=== PATIENT | female | born 1950 | race Caucasian/White ===

== ENCOUNTER 2019-11-04 15:41 | Emergency (ER) | payer MEDICARE, MEDICAID, SELFPAY ==
[2019-11-04 15:43] VITALS: BP 178/57; PULSE 61; RESP 19; TEMP 36.4; O2SAT 96; BMI 50.8
--- NOTE | 2019-11-04 19:06 | ED_ITS ---
Documented by User: BUCK Morris 11/07/19 07:18 HPI - General Adult General: Chief complaint: General Medical Stated complaint: Blood pressure is high Time Seen by Provider: 11/04/19 18:41 History of Present Illness: HPI narrative: Patient is a 69-year-old female who comes to the ED with elevated blood pressure. She has a past medical history of A. 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 She states she is having no symptoms or feels any different. Her home care nurse came over today and took her blood pressure and the systolic number was around 210. The home care nurse called the ambulance and they came out to see patient. Patient states before the EMS team arrived she took her blood pressure again and her systolic number was 216. The EMS arrived and took her blood pressure in the systolic number was 175. They then took her blood pressure again in the systolic number was around 170. They then told her she could come in the ambulance or she can go to the emergency department by personal vehicle and she decided to have her friend come over to take her to the emergency department. Denies any chest pain, shortness of breath, abdominal pain, nausea, vomiting, constipation, dysuria, hematuria. She does state that she has chronic diarrhea that has remained unchanged. Denies any vision changes, numbness or tingling, weakness to extremities. Review of Systems General: Reports: 10 or more systems reviewed and unremarkable except in HPI and below PFS ED PFSH: Statuses (acute, chronic, etc) shown below reflect problem list status as previously entered and may not be historically accurate Medical History A-fib (Acute) Diabetes (Acute) Hypertension (Acute) Polio osteopathy of lower leg (Acute) Social History Smoking and tobacco status: never smoked Physical Exam Narrative: EXAM NARRATIVE: Patient is a 69-year-old female sitting in a wheelchair when I entered the exam room. She explained to me that she's been in a wheelchair for over 30 years since due to polio complications as a child. She has limited movement in her left leg and right leg appears slightly deformed. Const: COMMON NORMALS: oriented x3 HENMT: COMMON NORMALS: normocephalic HEAD & SCALP: normocephalic MOUTH: oral and palatal mucosa normal THROAT: posterior oropharynx normal and uvula midline Neck/C-Spine: COMMON NORMALS: supple GENERAL: Yes normal visual inspection Resp: COMMON NORMALS: normal respiratory effort, no retractions, no use of accessory muscles and clear to auscultation bilaterally AUSCULTATION: clear to auscultation bilaterally Cardio: COMMON NORMALS: regular rate, regular rhythm, S1 normal heart sound, S2 normal heart sound, no gallops, no clicks and peripheral pulses 2+ throughout RATE: regular rate RHYTHM: regular rhythm HEART SOUNDS: S1 normal, S2 normal and murmur systolic Location: apex Intensity: III/ Characteristics: blo wing PERIPHERAL PULSES: pulses 2+ throughout GI: COMMON NORMALS: normal to inspection, nondistended, normoactive bowel sounds, soft to palpation, non-tender and no masses PALPATION: Yes soft : COMMON NORMALS: Yes no CVA tenderness BLADDER/KIDNEY EXAM: Yes no CVA tenderness Back/Pelvis: COMMON NORMALS: no CVA tenderness Extremity: NARRATIVE EXTREMITY EXAM: Patient is in a wheelchair due to complications from polio as a child. She has limited movement in her left leg. Neuro: COMMON NORMALS: oriented x3, CN's II-XII intact bilaterally, moves all extremities, no focal motor deficits and no sensory deficits noted SENSORY EXAM: Yes extremities (intact) MOTOR EXAM: strength 5/5 throughout (bilateral upper ext-5/5--LE limited movement due to polio as child) Skin: COMMON NORMALS: no rashes or lesions noted GENERAL SKIN EXAM: no rashes or lesions noted Course ED course: Patient had elevated blood pressures and was asymptomatic while at home and before coming to the ED. She remains asymptomatic while she is here in the ED. Her blood pressure has continued to decrease and her blood pressure On arrival was 178/57 and her last BP taken in the ED before discharge was 125/58. I discussed with the patient importance of following up with her primary care doctor in 5-7 days to discuss blood pressure medication management and I also told patient to keep a daily log and take multiple blood pressures throughout the day. I told her she could show this to her primary care doctor when she sees them in 5-7 days. Vital Signs: Vital signs: Vital Signs Temperature 97.6 F 11/04/19 15:43 Pulse Rate 68 11/04/19 21:57 Respiratory Rate 18 11/04/19 21:57 Blood Pressure 125/58 11/04/19 21:57 Pulse Oximetry 95 11/04/19 21:57 [facility] - General Adult Lab Data: Attestation: I reviewed the patient's lab results. Labs: Lab Results 11/04/19 11/04/19 11/04/19 Range/Units 19:23 19:23 19:49 WBC 5.5 (4.0-10.0) 10^3/ uL RBC 3.17 L (4.1-5.3) 10^6/u L Hgb 9.5 L (11.5-15.3) g/dL Hct 30.8 L (37.0-47.0) % MCV 97.2 (81-99) fL MCH 30.0 (28.0-34.0) pg MCHC 30.8 (30.0-36.0) g/dL RDW 14.4 (12.1-15.1) % Plt Count 260 (130-400) 10^3/c mm MPV 9.4 (7.4-10.4) fL Neut % (Auto) 64.2 % Lymph % (Auto) 25.0 % [place] % (Auto) 6.6 % Eos % (Auto) 3.6 % Baso % (Auto) 0.4 % Neut # (Auto) 3.5 (1.8-7.7) 10^3/u L Lymph # (Auto) 1.4 (0.8-4.8) 10^3/u L [place] # (Auto) 0.4 (0.2-0.9) 10^3/u L Eos # (Auto) 0.2 (0.0-0.8) 10^3/u L Baso # (Auto) 0.0 (0.0-0.1) 10^3/u L Nucleated RBC % (a uto) 0 % Nucleated RBCs # 0.0 /100WBC Sodium 141 (136-145) mmol/L Potassium 3.8 (3.5-5.1) mmol/L Chloride 104 (98-107) mmol/L Carbon Dioxide 22 (22-29) mmol/L Anion Gap 18.8 (5-19) BUN 24 H (8-23) mg/dL Creatinine 0.5 (0.5-0.9) mg/dL Glucose 76 (74-106) mg/dL Calcium 9.9 (8.8-10.2) mg/Dl Total Bilirubin 0.3 (0.15-1.2) mg/dL AST 21 (0-32) U/L ALT 12 (0-33) U/L Alkaline Phosphata se 39 (35-105) IU/L Total Protein 6.3 L (6.6-8.7) g/dL Albumin 4.1 (3.5-5.2) g/dL Globulin 2.2 (1.3-4.6) g/dL Urine Color Yellow (Yellow) Urine Appearance Clear (CLEAR) Urine pH 6 (5-7) Ur Specific Gravit y 1.010 (1.005-1.030) Urine Protein Neg (Negative) Urine Glucose (UA) Norm (Normal) Urine Ketones Negative (Negative) Urine Occult Blood Neg (Negative) Urine Nitrate Positive H (Negative) Urine Bilirubin Neg (NEGATIVE) Urine Urobilinogen Norm (Negative) mg/dL Ur Leukocyte Lindsay ase Negative (Negative) Urine RBC None (0-2) /hpf Urine WBC 0-4 H (0-5) /hpf Ur Squamous Epith Cells Rare (0-5) Urine Bacteria 3+ H (NONE) Discharge Plan Discharge Patient Disposition: Home, Self-Care Clinical Impression: Acute UTI, Hypertension Condition: Stable Prescriptions: No Action ibuprofen 600 mg tablet 600 mg PO TID PRN (Reason: pain) Qty: 30 RF: 1 Multiple Vitamins Tablet 1 tab PO DAILY RF: 0 trazodone 50 mg Tablet 50 mg PO BEDTIME RF: 0 amiodarone 200 mg Tablet 200 mg PO DAILY RF: 0 Bactrim DS 800-160 mg Tablet 1 tab PO DAILY RF: 0 magnesium oxide 400 mg (241.3 mg magnesium) Tablet 400 mg PO BID RF: 0 metformin 1,000 mg Tablet 1,000 mg PO BID RF: 0 omeprazole 20 mg Capsule,Delayed Release(Dr/Ec) 20 mg PO DAILY RF: 0 loratadine 10 mg Tablet 10 mg PO DAILY RF: 0 glipizide 5 mg Tablet 5 mg PO BID RF: 0 Levemir FlexTouch U-100 Insuln 100 unit/mL (3 mL) Insulin Pen See Rx Instructions .ROUTE .COMPLEX RF: 0 Tricor 145 mg Tablet 145 mg PO BEDTIME RF: 0 ferrous gluconate 324 mg (38 mg iron) Tablet 324 mg PO DAILY RF: 0 Eliquis 5 mg Tablet 5 mg PO BID RF: 0 Vitamin D3 1 cap PO DAILY RF: 0 Adult Aspirin Regimen 81 mg tablet,delayed release (DR/EC) 81 mg PO DAILY RF: 0 metoprolol tartrate 25 mg tablet 25 mg PO BID Qty: 30 RF: 0 amlodipine 10 mg tablet 10 mg PO DAILY Qty: 20 RF: 0 Discharge Orders: Discharge Order (Routine); Ordered 11/04/19 Ordered By: Fernando Joyner Discharge Diet: Regular Discharge Activity: Resume usual activity Activity Restrictions/Additional Instructions: Follow-up with your primary care doctor in 7 days for reevaluation and to discuss blood pressure medication management. Take full course of antibiotics as prescribed. Drink plenty of fluids. Take Tylenol or ibuprofen for fever or pain. Keep a blood pressure journal and take her blood pressure at least twice a day for the next 7 days or until you see your primary care doctor. Discharge Date/Time: 11/04/19 21:58 Coding Level of Care Code ED Live Out Nanny for Chg Fwd Documented by User: Anyi Bronson MD, [facility] [place] 11/15/19 11:52 HPI - General Adult General: Chief complaint: General Medical Stated complaint: Blood pressure is high Time Seen by Provider: 11/04/19 18:41 PFSH ED PFSH: Statuses (acute, chronic, etc) shown below reflect problem list status as previously entered and may not be historically accurate Medical History A-fib (Acute) Diabetes (Acute) Hypertension (Acute) Polio osteopathy of lower leg (Acute) Social History Smoking and tobacco status: never smoked Course Vital Signs: Vital signs: Vital Signs Temperature 97.6 F 11/04/19 15:43 Pulse Rate 68 11/04/19 21:57 Respiratory Rate 18 11/04/19 21:57 Blood Pressure 125/58 11/04/19 21:57 Pulse Oximetry 95 11/04/19 21:57 [facility] - General Adult Lab Data: Labs: Lab Results 11/04/19 11/04/19 11/04/19 Range/Units 19:23 19:23 19:49 WBC 5.5 (4.0-10.0) 10^3/ uL RBC 3.17 L (4.1-5.3) 10^6/u L Hgb 9.5 L (11.5-15.3) g/dL Hct 30.8 L (37.0-47.0) % MCV 97.2 (81-99) fL MCH 30.0 (28.0-34.0) pg MCHC 30.8 (30.0-36.0) g/dL RDW 14.4 (12.1-15.1) % Plt Count 260 (130-400) 10^3/c mm MPV 9.4 (7.4-10.4) fL Neut % (Auto) 64.2 % Lymph % (Auto) 25.0 % [place] % (Auto) 6.6 % Eos % (Auto) 3.6 % Baso % (Auto) 0.4 % Neut # (Auto) 3.5 (1.8-7.7) 10^3/u L Lymph # (Auto) 1.4 (0.8-4.8) 10^3/u L [place] # (Auto) 0.4 (0.2-0.9) 10^3/u L Eos # (Auto) 0.2 (0.0-0.8) 10^3/u L Baso # (Auto) 0.0 (0.0-0.1) 10^3/u L Nucleated RBC % (a uto) 0 % Nucleated RBCs # 0.0 /100WBC Sodium 141 (136-145) mmol/L Potassium 3.8 (3.5-5.1) mmol/L Chloride 104 (98-107) mmol/L Carbon Dioxide 22 (22-29) mmol/L Anion Gap 18.8 (5-19) BUN 24 H (8-23) mg/dL Creatinine 0.5 (0.5-0.9) mg/dL Glucose 76 (74-106) mg/dL Calcium 9.9 (8.8-10.2) mg/Dl Total Bilirubin 0.3 (0.15-1.2) mg/dL AST 21 (0-32) U/L ALT 12 (0-33) U/L Alkaline Phosphata se 39 (35-105) IU/L Total Protein 6.3 L (6.6-8.7) g/dL Albumin 4.1 (3.5-5.2) g/dL Globulin 2.2 (1.3-4.6) g/dL Urine Color Yellow (Yellow) Urine Appearance Clear (CLEAR) Urine pH 6 (5-7) Ur Specific Gravit y 1.010 (1.005-1.030) Urine Protein Neg (Negative) Urine Glucose (UA) Norm (Normal) Urine Ketones Negative (Negative) Urine Occult Blood Neg (Negative) Urine Nitrate Positive H (Negative) Urine Bilirubin Neg (NEGATIVE) Urine Urobilinogen Norm (Negative) mg/dL Ur Leukocyte Lindsay ase Negative (Negative) Urine RBC None (0-2) /hpf Urine WBC 0-4 H (0-5) /hpf Ur Squamous Epith Cells Rare (0-5) Urine Bacteria 3+ H (NONE) Discharge Plan Discharge Patient Disposition: Home, Self-Care Clinical Impression: Acute UTI, Hypertension Condition: Stable Prescriptions: No Action ibuprofen 600 mg tablet 600 mg PO TID PRN (Reason: pain) Qty: 30 RF: 1 Multiple Vitamins Tablet 1 tab PO DAILY RF: 0 trazodone 50 mg Tablet 50 mg PO BEDTIME RF: 0 amiodarone 200 mg Tablet 200 mg PO DAILY RF: 0 Bactrim DS 800-160 mg Tablet 1 tab PO DAILY RF: 0 magnesium oxide 400 mg (241.3 mg magnesium) Tablet 400 mg PO BID RF: 0 metformin 1,000 mg Tablet 1,000 mg PO BID RF: 0 omeprazole 20 mg Capsule,Delayed Release(Dr/Ec) 20 mg PO DAILY RF: 0 loratadine 10 mg Tablet 10 mg PO DAILY RF: 0 glipizide 5 mg Tablet 5 mg PO BID RF: 0 Levemir FlexTouch U-100 Insuln 100 unit/mL (3 mL) Insulin Pen See Rx Instructions .ROUTE .COMPLEX RF: 0 Tricor 145 mg Tablet 145 mg PO BEDTIME RF: 0 ferrous gluconate 324 mg (38 mg iron) Tablet 324 mg PO DAILY RF: 0 Eliquis 5 mg Tablet 5 mg PO BID RF: 0 Vitamin D3 1 cap PO DAILY RF: 0 Adult Aspirin Regimen 81 mg tablet,delayed release (DR/EC) 81 mg PO DAILY RF: 0 metoprolol tartrate 25 mg tablet 25 mg PO BID Qty: 30 RF: 0 amlodipine 10 mg tablet 10 mg PO DAILY Qty: 20 RF: 0 Discharge Orders: Discharge Order (Routine); Ordered 11/04/19 Ordered By: Fernando Joyner Discharge Diet: Regular Discharge Activity: Resume usual activity Activity Restrictions/Additional Instructions: Follow-up with your primary care doctor in 7 days for reevaluation and to discuss blood pressure medication management. Take full course of antibiotics as prescribed. Drink plenty of fluids. Take Tylenol or ibuprofen for fever or pain. Keep a blood pressure journal and take her blood pressure at least twice a day for the next 7 days or until you see your primary care doctor. Discharge Date/Time: 11/04/19 21:58 Coding Level of Care Code ED Live Out Nanny for Ashley Chavira
[2019-11-04 19:30] LABS: Basophils % 0.4 %; Eosinophils # 0.2 10^3/uL (0.0-0.8); Eosinophils % 3.6 %; Hematocrit 30.8 % (37.0-47.0); Hemoglobin 9.5 g/dL (11.5-15.3); Lymphocytes # 1.4 10^3/uL (0.8-4.8); Mean Corpuscular HGB Conc 30.8 g/dL (30.0-36.0); Mean Corpuscular Volume 97.2 fL (81-99); Mean Platelet Volume 9.4 fL (7.4-10.4); Monocytes # 0.4 10^3/uL (0.2-0.9); Monocytes % 6.6 %; Neutrophils # 3.5 10^3/uL (1.8-7.7); Neutrophils % 64.2 %; Nucleated Red Blood Cells % 0 %; Platelet Count 260 10^3/cmm (130-400); Red Blood Count 3.17 10^6/uL (4.1-5.3); Red Cell Distribution Width 14.4 % (12.1-15.1); White Blood Count 5.5 10^3/uL (4.0-10.0)
[2019-11-04 19:57] VITALS: O2SAT 94
[2019-11-04 19:58] LABS: Alanine Aminotransferase 12 U/L (0-33); Albumin Level 4.1 g/dL (3.5-5.2); Alkaline Phosphatase 39 IU/L (35-105); Anion Gap 18.8 (5-19); Aspartate Amino Transferase 21 U/L (0-32); Blood Urea Nitrogen 24 mg/dL (8-23); Calcium 9.9 mg/Dl (8.8-10.2); Carbon Dioxide 22 mmol/L (22-29); Chloride 104 mmol/L (98-107); Globulin 2.2 g/dL (1.3-4.6); Glucose 76 mg/dL (74-106); Potassium 3.8 mmol/L (3.5-5.1); Sodium 141 mmol/L (136-145); Total Bilirubin 0.3 mg/dL (0.15-1.2); Total Protein 6.3 g/dL (6.6-8.7)
--- NOTE | 2019-11-04 19:59 | PC.NURSE ---
Patient reports that she had a BP of 200/80s when she took it with her automatic cuff at home this morning. Patient states that she took her morning BP medications but has not taken her evening dose at this time.
[2019-11-04 20:00] VITALS: BP 152/62; O2SAT 94
[2019-11-04 20:20] LABS: Add Urine Culture? Yes; Bacteria Urine 3+; Bilirubin Urine Neg (NEGATIVE); Blood Urine Neg (Negative); Glucose Urine UA Norm (Normal); Ketones Urine Negative (Negative); Leukocyte Esterase Urine Negative (Negative); Nitrate Urine Positive (Negative); Protein Urine Neg (Negative); Squamous Epithelial Cell Urine RARE (0-5); Urine Appearance Clear (CLEAR); Urine Color Yellow (Yellow); Urobilinogen Urine Norm (Negative); WBC Urine 0-4 /hpf (0-5); pH Urine 6 (5-7)
[2019-11-04 21:57] VITALS: BP 125/58; PULSE 68; RESP 18; O2SAT 95
== END 2019-11-04 21:58 | disposition home or self-care (01) ==
PROVIDERS: Physician Assistant; Emergency Provider Emergency Medicine
DX: I10 Essential (primary) hypertension (principal); N39.0 Urinary tract infection, site not specified; Z79.4 Long term (current) use of insulin; Z79.01 Long term (current) use of anticoagulants; Z79.82 Long term (current) use of aspirin; I48.91 Unspecified atrial fibrillation; E11.9 Type 2 diabetes mellitus without complications
CPT/HCPCS: 36415; 80053; 81001; 85025; 87077; 87086; 87186; 99281

== ENCOUNTER 2019-11-11 11:39 | Emergency (ER) | payer MEDICARE, MEDICAID, SELFPAY ==
[2019-11-11 11:32] VITALS: BP 169/62; PULSE 63; RESP 18; TEMP 36.4; O2SAT 92; BMI 40.4
--- NOTE | 2019-11-11 11:40 | ED_ITS ---
Entered by Frandy Mosley, acting as scribe for Natalio Lane DO HPI - Chest Pain General: Chief Complaint: Chest Pain Stated Complaint: bradycardic History of Present Illness: HPI narrative: 69 yo female presents with chest pain. MD complaint: chest pain PFSH ED PFSH: Statuses (acute, chronic, etc) shown below reflect problem list status as previously entered and may not be historically accurate Social History Smoking and tobacco status: never smoked Course Vital Signs: Vital signs: Vital Signs Temperature 97.5 F L 11/11/19 11:32 Pulse Rate 63 11/11/19 11:32 Respiratory Rate 18 11/11/19 11:32 Blood Pressure 169/62 11/11/19 11:32 Pulse Oximetry 92 11/11/19 11:32 Discharge Plan Discharge Prescriptions: No Action metoprolol tartrate 50 mg tablet 50 mg PO BID Qty: 60 RF: 5 aspirin [Adult Aspirin Regimen] 81 mg tablet,delayed release (DR/EC) 81 mg PO QDAY Qty: 30 RF: 1 ibuprofen 600 mg tablet 600 mg PO TID PRN (Reason: pain) Qty: 30 RF: 1 Coding Level of Care Code ED Button Bradder for Ashley Chavira
--- NOTE | 2019-11-11 11:42 | PC.NURSE ---
Patient was checked by home health nurse and found to be hypertensive and Bradycardic at home, patient has no c/o and was having no symptoms at the time.
--- NOTE | 2019-11-11 11:56 | ED_ITS ---
Entered by Frandy Mosley, acting as scribe for Natalio Lane DO HPI - General Adult General: Chief complaint: Chest Pain Stated complaint: bradycardic History of Present Illness: HPI narrative: 69 yo female presents with hypertension. Pt denies having chest pain or having chest pain at any time. Pt states that she as at the clinic and they took her blood pressure and it was elevated. Pt states that the nurse at [facility] clinic called the ambulance. Pt states she hadn't taken her blood pressure medication today. Pt states that she notified the nurse of this. MD complaint: Hypertension Onset (ago): hour(s) Severity: mild Associated symptoms: Deny chest pain, confusion, cough, diaphoresis, decreased appetite, dyspnea, fevers/chills, headache(s), nausea, rash, vomiting or weakness Review of Systems Const: Denies: diaphoresis ENMT: Denies: throat pain, ear pain, nasal discharge or nasal congestion Card: Denies: chest pain Resp: Denies: shortness of breath GI: Denies: abdominal pain, nausea, vomiting, vomiting blood, coffee grounds in vomit, diarrhea, constipation, bloating, blood in stool or black tarry stool : Denies: flank pain, difficulty urinating, painful urination, urinary frequency or urinary urgency Skin/Breast: Denies: rash or itching Neuro: Denies: headache or confusion PFSH ED PFSH: Statuses (acute, chronic, etc) shown below reflect problem list status as previously entered and may not be historically accurate Medical History A-fib (Acute) Diabetes (Acute) Hypertension (Acute) Polio osteopathy of lower leg (Acute) Social History Smoking and tobacco status: never smoked Physical Exam Const: COMMON NORMALS: no apparent distress GENERAL APPEARANCE: cooperative and comfortable ORIENTATION/CONSCIOUSNESS: Yes awake, Yes oriented to person, Yes oriented to place and Yes oriented to time HENMT: COMMON NORMALS: normocephalic, head/scalp atraumatic, hearing grossly normal bilaterally, external ears normal, EAC's normal, TM's normal bilaterally, nasal mucous membranes and turbinates normal, moist oral mucous membranes and oropharynx normal HEAD & SCALP: normocephalic and atraumatic NOSE: nasal mucous membranes and turbinates normal EXTERNAL EAR: Yes external ears normal EXTERNAL AUDITORY CANAL: EAC's normal TYMPANIC MEMBRANE: TM's normal bilaterally Eye: COMMON NORMALS: PERRL, EOMs intact bilaterally, conjunctivae normal and no scleral icterus CONJUNCTIVA: Yes conjunctivae normal PUPIL: Yes PERRL Neck/C-Spine: COMMON NORMALS: full ROM, no lymphadenopathy, supple and no JVD Lymph: LYMPHATIC: no lymphadenopathy noted and no lymphedema noted Resp: COMMON NORMALS: normal respiratory effort, no retractions, no use of accessory muscles and clear to auscultation bilaterally AUSCULTATION: clear to auscultation bilaterally Cardio: COMMON NORMALS: no JVD, regular rate, regular rhythm and no murmurs RATE: regular rate RHYTHM: regular rhythm GI: COMMON NORMALS: soft to palpation and no hepatosplenomegaly AUSCULTATION: Yes normoactive bowel sounds PALPATION: Yes soft, No tender, No guarding and Yes no hepatosplenomegaly Extremity: COMMON NORMALS: normal to inspection, normal capillary refill, no clubbing, cyanosis or edema, no calf tenderness and no pedal edema Neuro: SENSORIUM/ORIENTATION: Yes oriented to person, Yes oriented to place and Yes oriented to time Skin: COMMON NORMALS: no rashes or lesions noted GENERAL SKIN EXAM: no rashes or lesions noted Course Vital Signs: Vital signs: Vital Signs Temperature 97.5 F L 11/11/19 11:32 Pulse Rate 63 11/11/19 15:07 Respiratory Rate 16 11/11/19 15:07 Blood Pressure 168/72 11/11/19 15:07 Pulse Oximetry 97 11/11/19 15:07 Discharge Plan Discharge Patient Disposition: Home, Self-Care Clinical Impression: Hypertension Condition: Stable Prescriptions: New metoprolol tartrate 25 mg tablet 25 mg PO BID Qty: 30 RF: 0 amlodipine 10 mg tablet 10 mg PO DAILY Qty: 20 RF: 0 Discontinued metoprolol tartrate 50 mg tablet 50 mg PO BID Qty: 60 RF: 5 amlodipine [Norvasc] 5 mg Tablet 5 mg PO DAILY RF: 0 No Action ibuprofen 600 mg tablet 600 mg PO TID PRN (Reason: pain) Qty: 30 RF: 1 Multiple Vitamins Tablet 1 tab PO DAILY RF: 0 trazodone 50 mg Tablet 50 mg PO BEDTIME RF: 0 amiodarone 200 mg Tablet 200 mg PO DAILY RF: 0 Bactrim DS 800-160 mg Tablet 1 tab PO DAILY RF: 0 magnesium oxide 400 mg (241.3 mg magnesium) Tablet 400 mg PO BID RF: 0 metformin 1,000 mg Tablet 1,000 mg PO BID RF: 0 omeprazole 20 mg Capsule,Delayed Release(Dr/Ec) 20 mg PO DAILY RF: 0 loratadine 10 mg Tablet 10 mg PO DAILY RF: 0 glipizide 5 mg Tablet 5 mg PO BID RF: 0 Levemir FlexTouch U-100 Insuln 100 unit/mL (3 mL) Insulin Pen See Rx Instructions .ROUTE .COMPLEX RF: 0 Tricor 145 mg Tablet 145 mg PO BEDTIME RF: 0 ferrous gluconate 324 mg (38 mg iron) Tablet 324 mg PO DAILY RF: 0 Eliquis 5 mg Tablet 5 mg PO BID RF: 0 Vitamin D3 1 cap PO DAILY RF: 0 Adult Aspirin Regimen 81 mg tablet,delayed release (DR/EC) 81 mg PO DAILY RF: 0 Discharge Orders: Discharge Order (Routine); Ordered 11/11/19 Ordered By: Natalio Lane Discharge Diet: Usual diet Discharge Activity: Resume usual activity Discharge Date/Time: 11/11/19 14:40 Coding Level of Care Code ED Ice Cream Man for Chg Fwd Exam Problem Focused The documentation recorded by the Dimitri conner Kialy, accurately reflects the service I personally performed and the decisions made by Domingo paris Curtis L, DO Nov 11, 2019 11:39
[2019-11-11 15:07] VITALS: BP 168/72; PULSE 63; RESP 16; O2SAT 97
== END 2019-11-11 14:40 | disposition home or self-care (01) ==
LOC: ER 13:00
PROVIDERS: Emergency Provider Family Medicine
DX: I10 Essential (primary) hypertension (principal); Z79.4 Long term (current) use of insulin; Z79.01 Long term (current) use of anticoagulants; Z79.82 Long term (current) use of aspirin; I48.91 Unspecified atrial fibrillation; E11.9 Type 2 diabetes mellitus without complications
CPT/HCPCS: 99281; 99283

== ENCOUNTER 2021-06-16 16:57 | Inpatient (IN) | payer MEDICARE, MEDICAID, SELFPAY ==
[2021-06-16 17:05] VITALS: BP 148/70; PULSE 107; RESP 24; TEMP 36.8; O2SAT 91; BMI 40.4
--- NOTE | 2021-06-16 17:07 | W.ED.GENADLT ---
HPI - General Adult General: Chief complaint: ER Hold Stated complaint: FALL BEEN IN FLOOR 2 DAYS Time Seen by Provider: 06/16/21 17:06 History of Present Illness: HPI narrative: Ms Padilla is 71 yo lady with significant history of polio resulting in wheelchair use, IDDM, a flutter on anticoagulation, htn, hld who presents to ED due to fall. Motorized wheelchair rolled over on her 2 days ago and she was stuck on the floor since. No LOC, primarily reports R rib and abd pain which is moderate and aching. Worse with palpation. additionally has L great toe pain and soft tissue R foot planter swelling which is new. Doesn't think she had immediately precipitating factors. No other changes in health reported. No other specific provoking, exacerbating, alleviating factors. Review of Systems General: Reports: 10 or more systems reviewed and unremarkable except in HPI and below Narrative: CONSTITUTIONAL: denies fever, fatigue, weakness EYES - denies pain, denies loss of vision NOSE - denies congestion or rhinorrhea. THROAT - denies sore throat or difficulty swallowing. CARDIOVASCULAR - denies chest pain and palpitations RESPIRATORY - denies shortness of breath and cough GASTROINTESTINAL - see HPI GENITOURINARY - denies dysuria or urinary frequency MUSCULOSKELETAL- See HPI SKIN - denies rashes or new changed skin lesions NEUROLOGIC - denies focal weakness or sensory changes HEMATOLOGIC/LYMPHATIC - denies easy bruising or lymphadenopathy. [facility] ED PFSH: Medical History (Updated 06/17/21 @ 05:54 by Johana Ferrer MD) Atrial flutter Diabetes Essential hypertension Hyperlipidemia Polio osteopathy of lower leg Surgical History (Updated 06/17/21 @ 08:34 by Johana Ferrer MD) History of aortic valve replacement with bioprosthetic valve bovine valve 10/13/2013 at [facility] History of cholecystectomy History of eye surgery History of foot surgery History of shoulder surgery History of surgery on arm Family History (Updated 06/17/21 @ 08:35 by Johana Ferrer MD) Mother CAD (coronary artery disease) Social History (Updated 06/17/21 @ 08:35 by Johana Ferrer MD) Smoking and tobacco status: never smoked Alcohol intake: never Substance/Drug Use: never Lives independently: Yes Household members: none Housing: House Additional social history: Has home health care, electric wheelchair Physical Exam Narrative: EXAM NARRATIVE: GENERAL/CONSTITUTIONAL - midly ill-appearing. No acute distress. Eyes - PERRL, no conjunctival injection ENMT - Atraumatic external nose and ears. dry mucous membranes NECK - supple. trachea midline CARDIOVASCULAR - regular rate and rhythm. TTP r lateral chest wall RESPIRATORY -clear to auscultation bilaterally. No retractions or accessory muscle use. ABDOMEN/GI - Tenderness with abrasions and echymosis to right anterior abdominal wall. No tenderness to percussion or evidence of peritonitis MSK - Extremities without obvious deformity, bilateral foot ttp, warmth and edema to right foot planter surface. SKIN - Warm, Dry NEURO - alert and appropriately oriented. strength and sensation baseline PSYCH - Appropriate mood and affect Course ED course: - Monitor, IV access, and vital signs obtained. - The patient was seen and evaluated by me at bedside - Initial evaluation was notable for physical exam as noted above. Dry mucous membranes - IV fluids given - Labs notable for leukocytosis, likely dehydration, normal pH, CK elevated. Though anion gap is present in the context of hyperglycemia the patient has other explanations for these findings and a normal pH. She is not felt to be in DKA. subQ insulin ordered after discussion with hospitalist. UTI concerning for UTI. - Imaging notable for no acute traumatic injury - Hospitalist was contacted and agreed admit the patient. - Upon serial reexamation the patient's condition was improved with fluids. They were admitted without incident or further clinical deterioration. Vital Signs: Vital signs: Vital Signs Temperature 97.6 F 06/18/21 11:43 Pulse Rate 74 06/18/21 11:43 Respiratory Rate 16 06/18/21 11:43 Blood Pressure 147/66 06/18/21 11:43 Pulse Oximetry 92 06/18/21 11:43 MDM - General Adult Medical Records: Attestation: I reviewed the patient's medical records. Lab Data: Attestation: I reviewed the patient's lab results. Labs: Lab Results 06/16/21 06/16/21 06/16/21 Range/Units 17:52 19:27 19:27 WBC 16.5 H (4.0-10.0) 10^3/ uL RBC 4.14 (4.1-5.3) 10^6/u L Hgb 12.3 (11.5-15.3) g/dL Hct 43.3 (37.0-47.0) % MCV 104.6 H (81-99) fl MCH 29.7 (28.0-34.0) pg MCHC 28.4 L (30.0-36.0) g/dL RDW 14.2 (12.1-15.1) % Plt Count 341 (130-400) 10^3/c mm MPV 10.1 (7.4-10.4) fL Neut % (Auto) 82.3 % Lymph % (Auto) 6.0 % Newberry % (Auto) 11.1 % Eos % (Auto) 0.1 % Baso % (Auto) 0.1 % Neut # (Auto) 13.62 H (1.8-7.7) 10^3/u L Lymph # (Auto) 1.0 (0.8-4.8) 10^3/u L Newberry # (Auto) 1.8 H (0.2-0.9) 10^3/u L Eos # (Auto) 0.0 (0.0-0.8) 10^3/u L Baso # (Auto) 0.0 (0.0-0.1) 10^3/u L Nucleated RBC % (a uto) 0 % Nucleated RBCs # 0.0 /100WBC Specimen Type Sample Site ABG pH (7.35-7.45) ABG pCO2 (35-45) mmHg ABG pO2 (80.0-100.0) mmH g ABG HCO3 (22-26) mmol/L ABG Base Excess (-2.0-2.0) mmol/ L Abdullahi Test Hematocrit (37-47) % O2 Delivery Device FiO2 % Rent Collector ID Sodium 143 (136-145) mmol/L Potassium 3.8 (3.5-5.1) mmol/L Chloride 104 (98-107) mmol/L Carbon Dioxide 17 L (22-29) mmol/L Anion Gap 25.8 H (5-19) BUN 44 H (8-23) mg/dL Creatinine 0.4 L (0.5-0.9) mg/dL GFR Calculation Not Reportable Glucose 326 H (65-115) mg/dL POC Glucose (70-110) mg/dL Calculated Osmolal ity 320 H (285-295) mOsm/k g Lactate (0.5-2.2) mmol/L Calcium 9.2 (8.5-10.5) mg/dL Magnesium 1.8 (1.7-2.3) mg/dL Total Bilirubin 0.4 (0.15-1.2) mg/dL AST 52 H (0-32) U/L ALT 35 H (0-33) U/L Alkaline Phosphata se 71 (35-105) IU/L Creatine Kinase 461 H* (26-192) U/L NT-Pro-B Natriuret Pep 2783 H (0-125) pg/mL Total Protein 6.5 L (6.6-8.7) g/dL Albumin 3.8 (3.5-5.2) g/dL Globulin 2.7 (1.3-4.6) g/dL Urine Color Nava (Yellow) Urine Appearance Cloudy A (CLEAR) Urine pH 9 H (5-7) Ur Specific Gravit y 1.010 (1.005-1.030) Urine Protein 3+ H (Negative) Urine Glucose (UA) 2+ H (Normal) Urine Ketones 2+ H (Negative) Urine Blood 3+ H (Negative) Urine Nitrate Negative (Negative) Urine Bilirubin Neg (Negative) Prot Sulfosalicyli c Acd Negative (Negative) Urine Urobilinogen 1 H (Negative) mg/dL Ur Leukocyte Lindsay ase 2+ H (Negative) Urine RBC 10-15 H (0-2) /hpf Urine WBC 10-15 H (0-5) /hpf Ur Squamous Epith Cells 0-4 H (0-5) /hpf Amorphous Sediment Not Reportable Urine Bacteria 4+ H (NONE) /hpf Urine Mucus 2+ /hpf 06/16/21 06/16/21 06/16/21 Range/Units 19:27 21:39 22:22 WBC (4.0-10.0) 10^3/ uL RBC (4.1-5.3) 10^6/u L Hgb (11.5-15.3) g/dL Hct (37.0-47.0) % MCV (81-99) fl MCH (28.0-34.0) pg MCHC (30.0-36.0) g/dL RDW (12.1-15.1) % Plt Count (130-400) 10^3/c mm MPV (7.4-10.4) fL Neut % (Auto) % Lymph % (Auto) % Newberry % (Auto) % Eos % (Auto) % Baso % (Auto) % Neut # (Auto) (1.8-7.7) 10^3/u L Lymph # (Auto) (0.8-4.8) 10^3/u L Newberry # (Auto) (0.2-0.9) 10^3/u L Eos # (Auto) (0.0-0.8) 10^3/u L Baso # (Auto) (0.0-0.1) 10^3/u L Nucleated RBC % (a uto) % Nucleated RBCs # /100WBC Specimen Type Arterial Sample Site Radial, right ABG pH 7.35 (7.35-7.45) ABG pCO2 35.5 (35-45) mmHg ABG pO2 74.0 L (80.0-100.0) mmH g ABG HCO3 19.4 L (22-26) mmol/L ABG Base Excess -5.7 L (-2.0-2.0) mmol/ L Abdullahi Test Pos Hematocrit 34.0 L (37-47) % O2 Delivery Device Nc FiO2 2.0 % Rent Collector ID Harkr Sodium (136-145) mmol/L Potassium (3.5-5.1) mmol/L Chloride (98-107) mmol/L Carbon Dioxide (22-29) mmol/L Anion Gap (5-19) BUN (8-23) mg/dL Creatinine (0.5-0.9) mg/dL GFR Calculation Glucose (65-115) mg/dL POC Glucose 344 H (70-110) mg/dL Calculated Osmolal ity (285-295) mOsm/k g Lactate 2.3 H (0.5-2.2) mmol/L Calcium (8.5-10.5) mg/dL Magnesium (1.7-2.3) mg/dL Total Bilirubin (0.15-1.2) mg/dL AST (0-32) U/L ALT (0-33) U/L Alkaline Phosphata se (35-105) IU/L Creatine Kinase (26-192) U/L NT-Pro-B Natriuret Pep (0-125) pg/mL Total Protein (6.6-8.7) g/dL Albumin (3.5-5.2) g/dL Globulin (1.3-4.6) g/dL Urine Color (Yellow) Urine Appearance (CLEAR) Urine pH (5-7) Ur Specific Gravit y (1.005-1.030) Urine Protein (Negative) Urine Glucose (UA) (Normal) Urine Ketones (Negative) Urine Blood (Negative) Urine Nitrate (Negative) Urine Bilirubin (Negative) Prot Sulfosalicyli c Acd (Negative) Urine Urobilinogen (Negative) mg/dL Ur Leukocyte Lindsay ase (Negative) Urine RBC (0-2) /hpf Urine WBC (0-5) /hpf Ur Squamous Epith Cells (0-5) /hpf Amorphous Sediment Urine Bacteria (NONE) /hpf Urine Mucus /hpf Discharge Plan Discharge Patient Disposition: Admitted As Inpatient Admit Provider: Jhoana Ferrer Coding Level of Care Code ED Gastroenterology Nurse Practitioner for Ashley Chavira
--- NOTE | 2021-06-16 17:18 | CTR_ITS ---
PROCEDURE INFORMATION: Exam: CT Head Without Contrast Exam date and time: 06/16/2021 5:18 PM Age: 71 years old Clinical indication: Injury or trauma; Blunt trauma (contusions or hematomas); Injury details: Fall x 2 days ago and was unable to get up. Hit head; Additional info: Trauma, eliquis TECHNIQUE: Imaging protocol: Computed tomography of the head without contrast. Radiation optimization: All CT scans at this facility use at least one of these dose optimization techniques: automated exposure control; mA and/or kV adjustment per patient size (includes targeted exams where dose is matched to clinical indication); or iterative reconstruction. COMPARISON: No relevant prior studies available. RADIATION DOSE METRICS: Total DLP (mGy-cm): 810.49 FINDINGS: Brain: No hemorrhage. No cerebral edema. Mild diffuse cerebral atrophy and sequela of chronic small vessel ischemic disease. No mass effect. Cerebral ventricles: No ventriculomegaly. Paranasal sinuses: Visualized sinuses are unremarkable. No fluid levels. Mastoid air cells: Visualized mastoid air cells are well aerated. Bones/joints: Unremarkable. No acute fracture. Soft tissues: Unremarkable. CT/CT head wo con* [id number] IMPRESSION: No acute intracranial abnormality. Radiation Dose CTDIVOL = (mGy): DLP = 810.49 (mGy-cm)
--- NOTE | 2021-06-16 17:18 | CTR_ITS ---
PROCEDURE INFORMATION: Exam: CT Chest With Contrast; Diagnostic Exam date and time: 06/16/2021 5:18 PM Age: 71 years old Clinical indication: Injury or trauma; Fall; Generalized; Blunt trauma (contusions or hematomas); Prior surgery; Surgery type: Heart valve; Patient HX: Patient found on the floor with wheelchair laying on top of her. History of polio. ; Additional info: Trauma, eliquis TECHNIQUE: Imaging protocol: Diagnostic computed tomography of the chest with contrast. Radiation optimization: All CT scans at this facility use at least one of these dose optimization techniques: automated exposure control; mA and/or kV adjustment per patient size (includes targeted exams where dose is matched to clinical indication); or iterative reconstruction. Contrast material: OMNI 300; Contrast volume: 95 ml; Contrast route: INTRAVENOUS (IV); COMPARISON: CT Low Extremity w RIGHT [id number] 11/09/2014 10:45 AM RADIATION DOSE METRICS: Total DLP (mGy-cm): 4250.41 FINDINGS: Lungs: Linear areas of scarring throughout the lungs. Posterior atelectasis of the lung bases. No consolidation. No masses. Pleural spaces: Unremarkable. No pneumothorax. No pleural effusion. Heart: Cardiomegaly and aortic valve replacement with sternotomy wires. No pericardial effusion. Aorta: Unremarkable. No aortic aneurysm. Lymph nodes: Unremarkable. No enlarged lymph nodes. Bones/joints: No acute fracture. Soft tissues: Unremarkable. IMPRESSION: No acute traumatic intrathoracic findings. PROCEDURE INFORMATION: Exam: CT Abdomen And Pelvis With Contrast Exam date and time: 06/16/2021 5:18 PM Age: 71 years old Clinical indication: Injury or trauma; Fall; Generalized; Blunt trauma (contusions or hematomas); Prior surgery; Surgery type: Heart valve; Patient HX: Patient found on the floor with wheelchair laying on top of her. History of polio. ; Additional info: Trauma, eliquis TECHNIQUE: Imaging protocol: Computed tomography of the abdomen and pelvis with contrast. Radiation optimization: All CT scans at this facility use at least one of these dose optimization techniques: automated exposure control; mA and/or kV adjustment per patient size (includes targeted exams where dose is matched to clinical indication); or iterative reconstruction. Contrast material: OMNI 300; Contrast volume: 95 ml; Contrast route: INTRAVENOUS (IV); COMPARISON: CT Low Extremity w RIGHT [id number] 11/09/2014 10:45 AM RADIATION DOSE METRICS: Total DLP (mGy-cm): 4250.41 FINDINGS: Liver: Normal. No mass. Gallbladder and bile ducts: Normal. No calcified stones. No ductal dilation. Pancreas: Normal. No ductal dilation. Spleen: Normal. No splenomegaly. Adrenal glands: Normal. No mass. Kidneys and ureters: Normal. No hydronephrosis. Stomach and bowel: Unremarkable. No obstruction. No mucosal thickening. Appendix: No evidence of appendicitis. Intraperitoneal space: Unremarkable. No free air. No significant fluid collection. Vasculature: Unremarkable. No abdominal aortic aneurysm. Lymph nodes: Unremarkable. No enlarged lymph nodes. Urinary bladder: Unremarkable as visualized. Reproductive: Calcified uterine fibroids noted. Bones/joints: No acute fracture. Soft tissues: Partially visualized subcutaneous fat stranding at the gluteal soft tissues. CT/CT chest abd pel w con* IMPRESSION: No acute traumatic intra-abdominal/pelvic findings. Radiation Dose CTDIVOL = (mGy): DLP = 4250.41~4250.41 (mGy-cm)
--- NOTE | 2021-06-16 17:18 | CTR_ITS ---
PROCEDURE INFORMATION: Exam: CT Cervical Spine Without Contrast Exam date and time: 06/16/2021 5:18 PM Age: 71 years old Clinical indication: Injury or trauma; Fall; Concussion/head injury; Additional info: Trauma fall TECHNIQUE: Imaging protocol: Computed tomography images of the cervical spine without contrast. Radiation optimization: All CT scans at this facility use at least one of these dose optimization techniques: automated exposure control; mA and/or kV adjustment per patient size (includes targeted exams where dose is matched to clinical indication); or iterative reconstruction. COMPARISON: CT head wo con* [id number] 06/16/2021 8:40 PM RADIATION DOSE METRICS: Total DLP (mGy-cm): 1034.67 FINDINGS: Bones/joints: No acute fracture. Normal alignment. Lungs: Lung apices are normal. Soft tissues: Unremarkable. CT/CT cervical spin wo con* [id number] IMPRESSION: No acute findings. Radiation Dose CTDIVOL = (mGy): DLP = 1034.67 (mGy-cm)
--- NOTE | 2021-06-16 17:20 | XRR_ITS ---
PROCEDURE INFORMATION: Exam: XR Right Foot Exam date and time: 06/16/2021 5:20 PM Age: 71 years old Clinical indication: Pain; Foot; Right; Additional info: Trauma, swelling TECHNIQUE: Imaging protocol: XR Right foot. Views: 3 or more views. COMPARISON: No relevant prior studies available. FINDINGS: Bones/joints: Generalized osteopenia and osteoarthritis is seen. A a chronic fracture is seen in the midshaft 3rd metatarsal. Bone spurs present in the distal shaft of the 2nd metatarsal. Soft tissues: Severe edema is seen in the dorsal aspect of the foot. XR/XR foot RT min 3V* [id number] IMPRESSION: 1. Osteopenia and osteoarthritis. 2. Chronic fracture midshaft 3rd metatarsal. 3. Negative for additional acute bony abnormalities. 4. Severe edema dorsal foot
--- NOTE | 2021-06-16 17:20 | XRR_ITS ---
PROCEDURE INFORMATION: Exam: XR Left Foot Exam date and time: 06/16/2021 5:20 PM Age: 71 years old Clinical indication: Pain; Toes; Left; Additional info: Trauma, great toe pain/swelling TECHNIQUE: Imaging protocol: XR Left foot. Views: 3 or more views. COMPARISON: No relevant prior studies available. FINDINGS: Bones/joints: Generalized osteopenia is seen. The foot is medially angulated. Fusion of the interphalangeal articulation of the great toe is seen. No acute fractures are noted. Soft tissues: Normal. Soft tissues: Normal. XR/XR foot LT min 3V* [id number] IMPRESSION: 1. Severe osteopenia and osteoarthritis. 2. Negative for acute bone abnormality. 3. Fusion of the interphalangeal joint of the great toe.
[2021-06-16] MEDS: tetanus-dipt-pertussis 0.5 mL SDV IM (17:57)
[2021-06-16] MEDS: sodium chloride 0.9% 500 ML IV (17:57)
[2021-06-16 18:38] VITALS: BP 134/87; PULSE 104; RESP 20; TEMP 36.5; O2SAT 99
[2021-06-16 19:09] LABS: Urine Appearance Cloudy (CLEAR); Urine Color Amber (Yellow); pH Urine 9 (5-7)
[2021-06-16 19:10] LABS: Add Urine Microscopic? YES; Bilirubin Urine Neg (Negative); Blood Urine 3+ (Negative); Glucose Urine UA 2+ (Normal); Ketones Urine 2+ (Negative); Leukocyte Esterase Urine 2+ (Negative); Nitrate Urine Negative (Negative); Protein Urine 3+ (Negative); Sulfosalicylic Acid Urine Negative (Negative); Urobilinogen Urine 1 mg/dL (Negative)
[2021-06-16 19:11] LABS: Add Urine Culture? Yes; Bacteria Urine 4+ /hpf; Mucus Urine 2+ /hpf; Squamous Epithelial Cell Urine 0-4 /hpf (0-5)
--- NOTE | 2021-06-16 19:18 | PC.PHAR ---
PT IS UNABLE TO CONFIRM MEDICATIONS. HER FAMILY MEMBER IS ALSO UNSURE OF THEM. PT BROUGHT IN A LIST FROM [employer] I AM GOING BY THE HOME HEALTH LIST, THE MEDICATION HISTORY AND THE PHARMACY LIST. PT STATES SHE HAS NOT TAKEN ANY OF HER MEDICATION SINCE 06/14/2021, THREE DAYS AGO.
[2021-06-16 19:37] LABS: Basophils % 0.1 %; Eosinophils % 0.1 %; Hematocrit 43.3 % (37.0-47.0); Hemoglobin 12.3 g/dL (11.5-15.3); Mean Corpuscular HGB Conc 28.4 g/dL (30.0-36.0); Mean Corpuscular Hemoglobin 29.7 pg (28.0-34.0); Mean Corpuscular Volume 104.6 fl (81-99); Mean Platelet Volume 10.1 fL (7.4-10.4); Monocytes # 1.8 10^3/uL (0.2-0.9); Monocytes % 11.1 %; Neutrophils # 13.62 10^3/uL (1.8-7.7); Neutrophils % 82.3 %; Nucleated Red Blood Cells % 0 %; Platelet Count 341 10^3/cmm (130-400); Red Blood Count 4.14 10^6/uL (4.1-5.3); Red Cell Distribution Width 14.2 % (12.1-15.1); White Blood Count 16.5 10^3/uL (4.0-10.0)
[2021-06-16 20:02] LABS: Lactate (Lactic Acid level) 2.3 mmol/L (0.5-2.2)
[2021-06-16 20:15] LABS: Alanine Aminotransferase 35 U/L (0-33); Albumin Level 3.8 g/dL (3.5-5.2); Alkaline Phosphatase 71 IU/L (35-105); Aspartate Amino Transferase 52 U/L (0-32); Blood Urea Nitrogen 44 mg/dL (8-23); Calcium 9.2 mg/dL (8.5-10.5); Carbon Dioxide 17 mmol/L (22-29); Chloride 104 mmol/L (98-107); Globulin 2.7 g/dL (1.3-4.6); Glucose 326 mg/dL (65-115); Magnesium 1.8 mg/dL (1.7-2.3); NT Pro B Type Natriuretic Pept 2783 pg/mL (0-125); Osmolality Calculated 320 mOsm/kg (285-295); Sodium 143 mmol/L (136-145); Total Bilirubin 0.4 mg/dL (0.15-1.2); Total Protein 6.5 g/dL (6.6-8.7)
[2021-06-16 20:17] LABS: Anion Gap 25.8 (5-19); Potassium 3.8 mmol/L (3.5-5.1)
[2021-06-16 20:25] LABS: Creatine Phosphokinase 461 U/L (26-192)
[2021-06-16 20:26] VITALS: BP 134/65; PULSE 102; RESP 22; TEMP 36.5; O2SAT 98
[2021-06-16] MEDS: cefTRIAXone 1,000 MG in sodium chloride 0.9% (plus) 50 ML 100 MG IV (20:27)
[2021-06-16] MEDS: iohexol 300 mg/mL 100 mL Btl IV (21:06)
[2021-06-16 21:20] VITALS: BP 140/78; PULSE 110; RESP 22; TEMP 36.8; O2SAT 94
--- NOTE | 2021-06-16 21:24 | PC.NURSE ---
Patient returns from ct, they restarted her IV 22g in left hand, IV infiltrated with contrast in right AC, area is covered with warm compress. Patient is assisted to bedpan.
[2021-06-16] MEDS: sodium chloride 0.9% 1,000 ML 150 ML IV (21:41)
[2021-06-16 21:51] LABS: ABG PCO2 35.5 mmHg (35-45); ABG PH Result 7.35 (7.35-7.45); Base Excess ABG -5.7 mmol/L (-2.0-2.0); Blood Gas Allen Test Pos; Blood Gas Operator Identificat HARKR; Blood Gas Sample Site Radial, right; Blood Gas Sample Type Arterial; HCO3 ABG 19.4 mmol/L (22-26); Oxygen Device NC
[2021-06-16 22:41] VITALS: BP 100/67; PULSE 102; RESP 22; TEMP 36.8; O2SAT 96
[2021-06-16] MEDS: sodium chloride 0.9% 1,000 ML 75 ML IV (22:47)
--- NOTE | 2021-06-16 23:24 | PC.NURSE ---
Please note patient has multiple wounds, abrasions and bruising from fall, redness in groin area as well and under abd fold.
--- NOTE | 2021-06-16 23:48 | P.HP_ITS ---
Providers/Chief Complaint Admitting Physician: Johana Ferrer MD Primary Care Provider: John Suarez Chief Complaint: FALL BEEN IN FLOOR 2 DAYS History of Present Illness Renae Padilla is a 71 year old female who presented to the emergency room after she was found on the floor at her home today. She lives alone. 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 She is chair dependent but generally is able to take care of her needs. 2 days ago she was transferring to her chair when she slipped and fell to the floor. Her chair landed on top of her. For the last 2 days she has been laying on the floor not able to move the chair. She has home health and from what I can tell they found her and called for ambulance. She has not had any of her medications nor oral intake the last couple of days. She did not have any preceding symptoms. The fall to the floor was merely accidental. She had no means of contacting anyone for help because she was trapped under the electric wheelchair. She denies any vomiting. She has chronic loose stools. She has continued to make urine though in decreasing amounts. She has some generalized aches and pains. No joints or places seem to be hurting her more than others. She is very thirsty. Work-up in the emergency room showed some elevation in CK level, acute kidney injury, evidence of urinary tract infection and elevated blood sugars from not having insulin therapy. She received some insulin therapy, IV fluids and Rocephin in the ER. She is being admitted for further care and evaluation. Review of Systems Const: Reports: body aches; Denies: fever(s) or chills ENMT: Reports: dry mouth Card: Reports: palpitations; Denies: chest pain or edema Resp: Reports: dyspnea; Denies: productive cough or non-productive cough GI: Reports: diarrhea (Chronic not acute); Denies: abdominal pain, nausea, vomiting or constipation : Reports: urinary incontinence Musc: Reports: deformity (Not new) Skin/Breast: Reports: rash and sores; Denies: pruritus Neuro: Reports: other (No new neurological complaints beyond weakness which is General rather than); Denies: headache(s) Psych: Denies: anxiety or depression Cali/Lymph: Reports: other (Several bruises); Denies: easy bruising Medications/Allergies Home Medications Medication Instructions Recorded Confirmed Last Taken Type Vitamin D3 1 cap PO DAILY 11/11/19 06/16/21 06/14/21 History aspirin [Adult Aspirin Regimen] 81 mg PO DAILY 11/11/19 06/16/21 06/14/21 History fenofibrate nanocrystallized 145 mg PO BEDTIME 11/11/19 06/16/21 06/14/21 History [Tricor] ferrous gluconate 324 mg PO DAILY 11/11/19 06/16/21 06/14/21 History insulin detemir U-100 [Levemir See Rx Instructions .ROUTE .COMPLEX 11/11/19 06/16/21 06/14/21 History FlexTouch U-100 Insuln] magnesium oxide 400 mg PO BID 11/11/19 06/16/21 06/14/21 History multivitamin [Multiple Vitamins] 1 tab PO DAILY 11/11/19 06/16/21 06/14/21 History omeprazole 20 mg PO DAILY 11/11/19 06/16/21 06/14/21 History trazodone 50 mg PO BEDTIME 11/11/19 06/16/21 06/14/21 History loratadine 10 mg tablet 10 mg PO DAILY #30 tab 12/31/19 06/16/21 Unknown Rx ibuprofen 600 mg tablet 600 mg PO TID PRN tab 03/23/20 06/16/21 Unknown History glipizide 5 mg tablet 5 mg PO BID #180 tab 04/06/20 06/16/21 06/14/21 Rx metformin 1,000 mg tablet 1,000 mg PO BID #60 tab 04/25/20 06/16/21 06/14/21 Rx baclofen 10 mg tablet 10 mg PO DAILY PRN 09/29/20 06/16/21 06/14/21 History lisinopril 20 mg tablet 20 mg PO BID #180 tab 09/29/20 06/16/21 06/14/21 Rx amiodarone 200 mg tablet 200 mg PO DAILY 90 Days #90 tab 01/24/21 06/16/21 06/14/21 Rx apixaban 5 mg tablet 5 mg PO BID #180 tab 03/31/21 06/16/21 06/14/21 Rx amlodipine 10 mg PO DAILY 06/16/21 06/16/21 Unknown History ascorbic acid (vitamin C) [Vitamin 500 mg PO DAILY 06/16/21 06/16/21 06/14/21 History C] metoprolol tartrate 25 mg PO BID 06/16/21 06/16/21 06/14/21 History nitroglycerin 0.4 mg SUBLINGUAL Q5M PRN 06/16/21 06/16/21 Unknown History vitamins A,C,D-kvnh-cnsmic 1 cap PO BID 06/16/21 06/16/21 06/14/21 History [PreserVision AREDS] Allergies Allergy/AdvReac Type Severity Reaction Status Date / Time fish oil Allergy Unknown Verified 11/04/19 15:48 PFSH Acute PFSH: Medical History (Updated 06/17/21 @ 05:54 by Johana Ferrer MD) Atrial flutter Diabetes Essential hypertension Hyperlipidemia Polio osteopathy of lower leg Surgical History (Updated 06/17/21 @ 08:34 by Johana Ferrer MD) History of aortic valve replacement with bioprosthetic valve bovine valve 10/13/2013 at [facility] History of cholecystectomy History of eye surgery History of foot surgery History of shoulder surgery History of surgery on arm Family History (Updated 06/17/21 @ 08:35 by Johana Ferrer MD) Mother CAD (coronary artery disease) Social History (Updated 06/17/21 @ 08:35 by Johana Ferrer MD) Smoking and tobacco status: never smoked Alcohol intake: never Substance/Drug Use: never Lives independently: Yes Household members: none Housing: House Additional social history: Has home health care, electric wheelchair Vitals/I&O/Wt Last Vital Signs Temp 98.2 F 06/16/21 22:41 Pulse 102 H 06/16/21 22:41 Resp 22 H 06/16/21 22:41 BP 100/67 06/16/21 22:41 Pulse Ox 96 06/16/21 22:41 06/16/21 06/16/21 06/17/21 14:59 22:59 06:59 Intake Total 712.5 / 712.5 Balance 712.5 / 712.5 Weight last 48 hrs Weight 90.718 kg Physical Exam Narrative: EXAM NARRATIVE: Constitutional: Awake and alert, cooperative, able to provide history HEENT: Normocephalic, atraumatic, conjunctive are mildly injected, nasopharynx is clear, oropharynx with dry mucous membranes, lips are dry Neck: Supple Respiratory: Clear to auscultation bilaterally without any rales rhonchi or wheezes noted Cardiovascular: Irregularly irregular rhythm, tachycardic Abdomen: Soft, only mild tenderness and areas of wounds, no rebound or guarding, positive bowel sounds : Normal external genitalia, some erythema underneath the pannus that is incongruous with some erythema in the mons area. Only mild erythema is noted in the groins. Extremities: Chronic deformities related to known diagnosis of polio, extremities or puffy with trace to 1+ pitting edema. Knees and ankles while swollen are not warm or significantly tender to touch. Right shoulder is swollen but no warmth or erythema, nontender to palpation of the joint capsule. There is some bruising over the shoulder area and the right clavicle that is tender to palpation. No crepitus is noted. Skin: See pictures below for details. In addition to bruising over the right clavicle and right shoulder, patient has a bruise underneath the right breast and on the right lateral thoracic area. There is a circular appearing area that has to coincide with something on the wheelchair with serous blister formation and areas of abraded or denuded skin. Several obviously had blisters overlying them initially. I am not sure if these are mcleod or from pressure. Further below this area in the midline is an eschar formation about 3 cm in diameter with surrounding ecchymotic appearance. The entire area is slightly indurated. No fluctuance is noted. No significant tenderness to palpation is appreciated. This was not present prior to her falling on the floor. In the picture below it looks like this could be the umbilicus but the umbilicus is actually caudal to this lesion. There is 1 serous blister associated with this wound. Patient's sacrococcygeal area has not been evaluated at this time. Neuro: Speech is clear, face is symmetric, able to swallow water without any difficulty, generally weak Psych: Normal affect Skin: OTHER: Data : 06/16/21 19:27 06/16/21 19:27 Other Labs: Laboratory Results WBC 16.5 10^3/uL (4.0-10.0) H 06/16/21 19: RBC 4.14 10^6/uL (4.1-5.3) 06/16/21 19:27 Hgb 12.3 g/dL (11.5-15.3) 06/16/21 19: Hct 43.3 % (37.0-47.0) 06/16/21: MCV 104.6 fl (81-99) H 06/16/21 19:27 MCH 29.7 pg (28.0-34.0) 06/16/21 19: MCHC 28.4 g/dL (30.0-36.0) L 06/16/21 19: RDW 14.2 % (12.1-15.1) 06/16/21 19: Plt Count 341 10^3/cmm (130-400) 06/16/21: MPV 10.1 fL (7.4-10.4) 06/16/21: Neut % (Auto) 82.3 % 06/16/21: Lymph % (Auto) 6.0 % 06/16/21: Faulkner % (Auto) 11.1 % 06/16/21 19: Eos % (Auto) 0.1 % 06/16/21 19: Baso % (Auto) 0.1 % 06/16/21: Neut # (Auto) 13.62 10^3/uL (1.8-7.7) H 06/16/21: Lymph # (Auto) 1.0 10^3/uL (0.8-4.8) 06/16/21: [place]ner # (Auto) 1.8 10^3/uL (0.2-0.9) H 06/16/21: Eos # (Auto) 0.0 10^3/uL (0.0-0.8) 06/16/21: Baso # (Auto) 0.0 10^3/uL (0.0-0.1) 06/16/21: Nucleated RBC % (auto) 0 % 06/16/21: Nucleated RBCs # 0.0 /100WBC 06/16/21 19: Specimen Type Arterial 06/16/21 21:39 Sample Site Radial, right 06/16/21 21:39 ABG pH 7.35 (7.35-7.45) 06/16/21 21:39 ABG pCO2 35.5 mmHg (35-45) 06/16/21 21:39 ABG pO2 74.0 mmHg (80.0-100.0) L 06/16/21 21:39 ABG HCO3 19.4 mmol/L (22-26) L 06/16/21 21:39 ABG Base Excess -5.7 mmol/L (-2.0-2.0) L 06/16/21 21:39 Abdullahi Test Pos 06/16/21 21:39 Hematocrit 34.0 % (37-47) L 06/16/21 21:39 O2 Delivery Device Nc 06/16/21 21:39 FiO2 2.0 % 06/16/21 21:39 Whizzer ID Harkr 06/16/21 21:39 Sodium 143 mmol/L (136-145) 06/16/21 19:27 Potassium 3.8 mmol/L (3.5-5.1) 06/16/21 19:27 Chloride 104 mmol/L (98-107) 06/16/21 19:27 Carbon Dioxide 17 mmol/L (22-29) L 06/16/21 19:27 Anion Gap 25.8 (5-19) H 06/16/21 19:27 BUN 44 mg/dL (8-23) H 06/16/21 19:27 Creatinine 0.4 mg/dL (0.5-0.9) L 06/16/21 19:27 GFR Calculation Not Reportable 06/16/21 19:27 Glucose 326 mg/dL (65-115) H 06/16/21 19:27 Calculated Osmolality 320 mOsm/kg (285-295) H 06/16/21 19:27 Lactate 2.3 mmol/L (0.5-2.2) H 06/16/21 19:27 Calcium 9.2 mg/dL (8.5-10.5) 06/16/21 19:27 Magnesium 1.8 mg/dL (1.7-2.3) 06/16/21 19:27 Total Bilirubin 0.4 mg/dL (0.15-1.2) 06/16/21 19:27 AST 52 U/L (0-32) H 06/16/21 19:27 ALT 35 U/L (0-33) H 06/16/21 19:27 Alkaline Phosphatase 71 IU/L (35-105) 06/16/21 19:27 Creatine Kinase 461 U/L (26-192) H* 06/16/21 19:27 NT-Pro-B Natriuret Pep 2783 pg/mL (0-125) H 06/16/21 19:27 Total Protein 6.5 g/dL (6.6-8.7) L 06/16/21 19:27 Albumin 3.8 g/dL (3.5-5.2) 06/16/21 19: Globulin 2.7 g/dL (1.3-4.6) 06/16/21 19:27 Urine Color Nava (Yellow) 06/16/21 17:52 Urine Appearance Cloudy (CLEAR) A 06/16/21 17:52 Urine pH 9 (5-7) H 06/16/21 17:52 Ur Specific [place] 1.010 (1.005-1.030) 06/16/21 17:52 Urine Protein 3+ (Negative) H 06/16/21 17:52 Urine Glucose (UA) 2+ (Normal) H 06/16/21 17:52 Urine Ketones 2+ (Negative) H 06/16/21 17:52 Urine Blood 3+ (Negative) H 06/16/21 17:52 Urine Nitrate Negative (Negative) 06/16/21 17:52 Urine Bilirubin Neg (Negative) 06/16/21 17:52 Prot Sulfosalicylic Acd Negative (Negative) 06/16/21 17:52 Urine Urobilinogen 1 mg/dL (Negative) H 06/16/21 17:52 Ur Leukocyte Esterase 2+ (Negative) H 06/16/21 17:52 Urine RBC 10-15 /hpf (0-2) H 06/16/21 17:52 Urine WBC 10-15 /hpf (0-5) H 06/16/21 17:52 Ur Squamous Epith Cells 0-4 /hpf (0-5) H 06/16/21 17:52 Amorphous Sediment Not Reportable 06/16/21 17:52 Urine Bacteria 4+ /hpf (NONE) H 06/16/21 17:52 Urine Mucus 2+ /hpf 06/16/21 17:[address] 06/16/21 17:18 IMPRESSION: No acute findings. Radiation Dose CTDIVOL = (mGy): DLP = 1034.67 (mGy-cm) Chest/Abdomen/Pelvis CT 06/16/21 17:18 IMPRESSION: No acute traumatic intra-abdominal/pelvic findings. Radiation Dose CTDIVOL = (mGy): DLP = 4250.41~4250.41 (mGy-cm) Head CT 06/16/21 17:18 IMPRESSION: No acute intracranial abnormality. Radiation Dose CTDIVOL = (mGy): DLP = 810.49 (mGy-cm) Foot X-Ray 06/16/21 17:20 IMPRESSION: 1. Osteopenia and osteoarthritis. 2. Chronic fracture midshaft 3rd metatarsal. 3. Negative for additional acute bony abnormalities. 4. 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: On the abdomen from her wheelchair lying on top of her for 2 days, 1 wound with central necrosis/eschar formation/unstageable and another area of wounds with skin shearing and blistering with surrounding erythema Status: Acute (3) Rhabdomyolysis: Status: Acute Qualifiers: Rhabdomyolysis type: non-traumatic Qualified Code(s): M62.82 - Rhabdomyolysis (4) Acute kidney injury: Status: Acute (5) Urinary tract infection: Status: Acute Qualifiers: Hematuria presence: without hematuria Urinary tract infection type: acute cystitis Qualified Code(s): N30.00 - Acute cystitis without hematuria (6) Essential hypertension: Current blood pressures are low Status: Chronic (7) Atrial flutter: Status: Chronic Qualifiers: Atrial flutter type: typical Qualified Code(s): I48.3 - Typical atrial flutter (8) Anticoagulated: Eliquis Status: Chronic (9) Diabetes: Status: Chronic Qualifiers: Diabetes mellitus complication status: with hyperglycemia 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 coli Follow-up pending urine culture Check blood cultures Repeat lactic acid in the morning Add vancomycin for skin coverage Triple antibiotic ointment to abraded skin on abdominal wall Blistered skin is marked with dots Ecchymotic skin around the eschar formation is outlined Monitor abdominal wounds closely for worsening If worsens consider surgical consultation Continue home metoprolol at a lower dose currently Hold home amlodipine and lisinopril Continue home amiodarone Will hold Eliquis and treat with Lovenox currently in the event that she requires debridement of abdominal wounds Plan transition back to Eliquis when stable Continue home aspirin Continue home iron Monitor for any drop in H&H Sliding scale insulin Lower dose long-acting insulin Hold Metformin and glipizide Home TriCor held secondary to elevation in CK level Other home medications held currently until we can evaluate how she does with management above Vitamin C and zinc for wound management Krause catheter for close monitoring of urine output and assistance with wound care management PT and OT eval Lovenox for DVT prophylaxis Chronically on PPI for GI prophylaxis Supportive care otherwise Plans discussed with patient and she was given opportunity to ask questions Anticipate discharge home when medically stable, has home health and typically is able to provide for her ADLs. May need some wound care assistance depending on clinical course. Also needs to have her wheelchair evaluated to ensure it is working okay for when she is able to return home. Full code Attestations Medical Necessity Statement*: Anticipated stay greater than 2 midnights in a patient with issues as noted above. She is currently requiring antibiotics for UTI and skin abnormalities, close monitoring of skin wounds, IV fluids and slow reintroduction of multiple medications given current clinical status. 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
[2021-06-16 23:54] LABS: Ketone (Acetest) Serum Positive (Negative)
[2021-06-17] VITALS (7 sets, daily range): BP systolic 121–133; BP diastolic 60–70; PULSE 72–94; RESP 16–22; TEMP 36.8–37; O2SAT 92–97; BMI 40.4
--- NOTE | 2021-06-17 04:12 | ECG_ITS ---
[facility] Test Date: 2021-06-17 Pat Name: Renae Padilla Department: Room: EDIP Gender: Female Forging [employer] Sinker: : 1950 Requested By: Johana Ferrer Order Number: [id number] Reading MD: ARCENIO SERVIN Measurements Intervals [place] Rate: 96 P: 75 FL: 146 QRS: -17 QRSD: 100 T: 35 QT: 391 QTc: 494 Interpretive Statements SINUS RHYTHM MODERATE ST DEPRESSION [0.05+ mV ST DEPRESSION] Compared to ECG 10/02/2019 08:13:38 ST (T wave) deviation now present T-wave abnormality no longer present Electronically Signed On 06-17-2021 20:17:55 CDT by ARCENIO SERVIN [email or web address]
--- NOTE | 2021-06-17 06:01 | PC.NURSE ---
OUTER BORDERS OF BRUISING TO MID ABDOMINAL WALL OUTLINED WITH SKIN MARKER. BLISTERS MARKED WITH DOTTED LINE, PER DR MOSES REQUEST.
[2021-06-17] MEDS: enoxaparin 100 mg/mL Syringe 90 MG SUBCUT ×2 (11:33→23:14)
[2021-06-17] MEDS: pantoprazole DR 40 mg Tablet PO (11:33)
[2021-06-17] MEDS: amiodarone 200 mg Tablet PO (11:33)
[2021-06-17] MEDS: ascorbic acid 500 mg Tablet PO ×2 (11:33→17:08)
[2021-06-17] MEDS: ferrous gluconate 324 mg Tablet PO (11:33)
[2021-06-17] MEDS: zinc gluconate 50 mg Tablet PO (11:33)
[2021-06-17] MEDS: aspirin 81 mg EC Tablet PO (11:33)
[2021-06-17] MEDS: metoprolol tartrate 25 mg Tablet 12.5 MG PO ×2 (11:34→17:08)
[2021-06-17] MEDS: nystatin powder 15 gm Btl 1 APPLIC TOPICAL ×2 (11:34→17:08)
[2021-06-17] MEDS: neomycin-poly-bacitracin oint 28 gm 1 APPLIC TOPICAL ×2 (11:34→17:08)
[2021-06-17] MEDS: vancomycin 1,000 MG in sodium chloride 0.9% 250 ML 250 MG IV (11:34)
[2021-06-17] MEDS: sodium chloride 0.9% 1,000 ML 75 ML IV (11:35)
--- NOTE | 2021-06-17 13:18 | PM.PN ---
Subjective Subjective: Interval history: Patient was seen this morning, she is alert oriented x2, her only complaint is abdominal pain, where the school order was lying on top of her, she has no other pain complaints, no fevers, no chills, no nausea, no vomiting, no chest pain Vitals/I&O/Wt Last Vital Signs Temp 98.2 F 06/17/21 11:37 Pulse 94 06/17/21 11:37 Resp 18 06/17/21 11:37 BP 123/68 06/17/21 11:37 Pulse Ox 92 06/17/21 11:37 06/16/21 06/17/21 06/17/21 22:59 06:59 14:59 Intake Total 712.5 / 712.5 2047.5 / 2046.5 Balance 712.5 / 712.5 2046.5 / 2046. Weight last 48 hrs Weight 90.718 kg Weight 90.718 kg Physical Exam Const: COMMON NORMALS: no acute distress ORIENTATION/CONSCIOUSNESS: Yes awake, Yes oriented to person and Yes oriented to place; not oriented to time Resp: COMMON NORMALS: normal respiratory effort, No retractions, No use of accessory muscles and clear to auscultation bilaterally AUSCULTATION: clear to auscultation bilaterally Cardio: COMMON NORMALS: regular rate, regular rhythm, S1 normal heart sound present and S2 normal heart sound present RATE: regular rate RHYTHM: regular rhythm HEART SOUNDS: S1 normal heart sound present and S2 normal heart sound present GI: COMMON NORMALS: Normal to inspection, nondistended, normoactive bowel sounds present, Soft to palpation and non-tender PALPATION: Yes Soft to palpation Extremity: COMMON NORMALS: no pedal edema Neuro: SENSORIUM/ORIENTATION: Yes oriented to person, Yes oriented to place and No oriented to time Psych: COMMON NORMALS: mental status grossly normal Skin: NARRATIVE SKIN EXAM: Abdomen, right upper quadrant, has multiple bili Mid abdomen, has a 2 x 2 centimeter black eschar Multiple superficial abrasions Data : 06/16/21 19:27 06/16/21 19:27 A&P Assessment and plan (1) Fall from wheelchair: Accidental while trying to get into her wheelchair Status: Acute Qualifiers: Encounter type: initial encounter Qualified Code(s): W05.0XXA - Fall from non-moving wheelchair, initial encounter (2) 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: On the abdomen from her wheelchair lying on top of her for 2 days, 1 wound with central necrosis/eschar formation/unstageable and another area of wounds with skin shearing and blistering with surrounding erythema We will continue to monitor, consider surgical consultation if debridement is required Possible underlying cellulitis, will start her on vancomycin Status: Acute (3) Rhabdomyolysis: Currently on IV fluids Status: Acute Qualifiers: Rhabdomyolysis type: non-traumatic Qualified Code(s): M62.82 - Rhabdomyolysis (4) Acute kidney injury: Creatinine improved to 0.4 Status: Acute (5) Urinary tract infection: Currently on Primaxin, has a history of ESBL, CT scan of the abdomen pelvis did not note any obstructive uropathy or radiographic evidence of pyelonephritis Status: Acute Qualifiers: Urinary tract infection type: acute cystitis Hematuria presence: without hematuria Qualified Code(s): N30.00 - Acute cystitis without hematuria (6) Essential hypertension: Current blood pressures are low, hold blood pressure medications Status: Chronic (7) Atrial flutter: Hold Eliquis, start on therapeutic Lovenox Status: Chronic Qualifiers: Atrial flutter type: typical Qualified Code(s): I48.3 - Typical atrial flutter (8) Anticoagulated: On hold Status: Chronic (9) Diabetes: On insulin sliding scale Status: Chronic Qualifiers: Diabetes mellitus type: type 2 Diabetes mellitus longterm insulin use: with longterm use Diabetes mellitus complication status: with hyperglycemia Qualified Code(s): E11.65 - Type 2 diabetes mellitus with hyperglycemia; 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 Additional A&P Information Follow-up pending urine culture Check blood cultures Repeat lactic acid in the morning Add vancomycin for skin coverage Triple antibiotic ointment to abraded skin on abdominal wall Blistered skin is marked with dots Ecchymotic skin around the eschar formation is outlined Monitor abdominal wounds closely for worsening Continue home metoprolol at a lower dose currently Hold home amlodipine and lisinopril Continue home amiodarone Will hold Eliquis and treat with Lovenox currently in the event that she requires debridement of abdominal wounds Plan transition back to Eliquis when stable Continue home aspirin Continue home iron Sliding scale insulin Lower dose long-acting insulin Vitamin C and zinc for wound management Krause catheter for close monitoring of urine output and assistance with wound care management PT and OT evana Lovenox for DVT prophylaxis Chronically on PPI for GI prophylaxis Supportive care otherwise Plans discussed with patient and she was given opportunity to ask questions Anticipate discharge home when medically stable, has home health and typically is able to provide for her ADLs. May need some wound care assistance depending on clinical course. Also needs to have her wheelchair evaluated to ensure it is working okay for when she is able to return home. 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
[2021-06-17 15:05] LABS: Bilirubin Urine Neg (Negative); Blood Urine 3+ (Negative); Glucose Urine UA Norm (Normal); Ketones Urine Negative (Negative); Leukocyte Esterase Urine 2+ (Negative); Nitrate Urine Negative (Negative); Protein Urine 1+ (Negative); Urine Appearance Cloudy (CLEAR); Urine Color Yellow (Yellow); Urobilinogen Urine 1 mg/dL (Negative); pH Urine 6.5 (5-7)
[2021-06-17 15:07] LABS: RBC Urine >100 /hpf (0-2); Squamous Epithelial Cell Urine 15-25 /hpf (0-5); WBC Urine 55-80 /hpf (0-5)
[2021-06-17 15:08] LABS: Add Urine Culture? Yes; Bacteria Urine 2+ /hpf; Mucus Urine 1+ /hpf
[2021-06-17] MEDS: acetaminophen 325 mg Tablet 650 MG PO (20:55)
[2021-06-17 22:19] LABS: Basophils % 0.2 %; Eosinophils # 0.2 10^3/uL (0.0-0.8); Eosinophils % 2.6 %; Hematocrit 30.9 % (37.0-47.0); Hemoglobin 9.5 g/dL (11.5-15.3); Lymphocytes % 11.8 %; Mean Corpuscular HGB Conc 30.7 g/dL (30.0-36.0); Mean Corpuscular Hemoglobin 29.8 pg (28.0-34.0); Mean Corpuscular Volume 96.9 fl (81-99); Mean Platelet Volume 10.1 fL (7.4-10.4); Monocytes # 0.9 10^3/uL (0.2-0.9); Monocytes % 11.3 %; Neutrophils # 6.04 10^3/uL (1.8-7.7); Neutrophils % 73.9 %; Nucleated Red Blood Cells % 0 %; Platelet Count 284 10^3/cmm (130-400); Red Blood Count 3.19 10^6/uL (4.1-5.3); White Blood Count 8.2 10^3/uL (4.0-10.0)
[2021-06-17 22:37] LABS: Lactate (Lactic Acid level) 1.4 mmol/L (0.5-2.2)
[2021-06-17 22:48] LABS: Alanine Aminotransferase 27 U/L (0-33); Albumin Level 3.2 g/dL (3.5-5.2); Alkaline Phosphatase 63 IU/L (35-105); Anion Gap 14.8 (5-19); Aspartate Amino Transferase 30 U/L (0-32); Blood Urea Nitrogen 51 mg/dL (8-23); Calcium 8.4 mg/dL (8.5-10.5); Carbon Dioxide 21 mmol/L (22-29); Chloride 105 mmol/L (98-107); Creatine Phosphokinase 136 U/L (26-192); Globulin 2.4 g/dL (1.3-4.6); Glucose 204 mg/dL (65-115); Magnesium 1.9 mg/dL (1.7-2.3); Osmolality Calculated 304 mOsm/kg (285-295); Phosphorus 3.6 mg/dL (2.5-4.5); Potassium 3.8 mmol/L (3.5-5.1); Sodium 137 mmol/L (136-145); Thyroid Stimulating Hormone 1.62 uIU/mL (0.27-4.20); Total Bilirubin 0.2 mg/dL (0.15-1.2); Total Protein 5.6 g/dL (6.6-8.7)
[2021-06-17 23:20] LABS: Estmated Average Glucose 134; Hemoglobin A1C 6.3 % (4.0-6.0)
[2021-06-17 23:51] LABS: INR 1.32 (0.8-1.2); Partial Thromboplastin Time 26.9 SECONDS (23.9-36.7)
[2021-06-18] VITALS (8 sets, daily range): BP systolic 130–153; BP diastolic 62–71; PULSE 71–81; RESP 16; TEMP 36.4–36.9; O2SAT 89–98; BMI 38.4
[2021-06-18] MEDS: acetaminophen 325 mg Tablet 650 MG PO ×3 (04:49→21:00)
[2021-06-18] MEDS: vancomycin 1,000 MG in sodium chloride 0.9% 250 ML 250 MG IV (06:36)
[2021-06-18 07:57] LABS: Glucose Point of Care 344 mg/dL (70-110)
[2021-06-18 07:57] LABS: Glucose Point of Care 312 mg/dL (70-110)
[2021-06-18 07:58] LABS: Glucose Point of Care 265 mg/dL (70-110)
[2021-06-18 07:58] LABS: Glucose Point of Care 253 mg/dL (70-110)
[2021-06-18 07:58] LABS: Glucose Point of Care 209 mg/dL (70-110)
[2021-06-18 08:00] LABS: Basophils % 0.4 %; Eosinophils # 0.2 10^3/uL (0.0-0.8); Eosinophils % 3.3 %; Hematocrit 32.3 % (37.0-47.0); Hemoglobin 9.8 g/dL (11.5-15.3); Lymphocytes # 0.9 10^3/uL (0.8-4.8); Lymphocytes % 12.9 %; Mean Corpuscular HGB Conc 30.3 g/dL (30.0-36.0); Mean Corpuscular Hemoglobin 30.2 pg (28.0-34.0); Mean Corpuscular Volume 99.4 fl (81-99); Mean Platelet Volume 10.4 fL (7.4-10.4); Monocytes # 0.8 10^3/uL (0.2-0.9); Monocytes % 11.6 %; Neutrophils # 4.81 10^3/uL (1.8-7.7); Neutrophils % 71.4 %; Nucleated Red Blood Cells % 0 %; Platelet Count 279 10^3/cmm (130-400); Red Blood Count 3.25 10^6/uL (4.1-5.3); White Blood Count 6.7 10^3/uL (4.0-10.0)
[2021-06-18 08:08] LABS: Glucose Point of Care 233 mg/dL (70-110)
[2021-06-18 08:24] LABS: Alanine Aminotransferase 25 U/L (0-33); Albumin Level 3.2 g/dL (3.5-5.2); Alkaline Phosphatase 69 IU/L (35-105); Anion Gap 14.7 (5-19); Aspartate Amino Transferase 27 U/L (0-32); Blood Urea Nitrogen 40 mg/dL (8-23); Calcium 8.6 mg/dL (8.5-10.5); Carbon Dioxide 21 mmol/L (22-29); Chloride 106 mmol/L (98-107); Globulin 2.1 g/dL (1.3-4.6); Glucose 174 mg/dL (65-115); Magnesium 1.7 mg/dL (1.7-2.3); Osmolality Calculated 300 mOsm/kg (285-295); Phosphorus 3.9 mg/dL (2.5-4.5); Potassium 3.7 mmol/L (3.5-5.1); Sodium 138 mmol/L (136-145); Total Bilirubin 0.2 mg/dL (0.15-1.2); Total Protein 5.3 g/dL (6.6-8.7)
[2021-06-18 08:26] LABS: Creatine Phosphokinase 85 U/L (26-192)
[2021-06-18] MEDS: aspirin 81 mg EC Tablet PO (10:21)
[2021-06-18] MEDS: ferrous gluconate 324 mg Tablet PO (10:21)
[2021-06-18] MEDS: zinc gluconate 50 mg Tablet PO (10:21)
[2021-06-18] MEDS: amiodarone 200 mg Tablet PO (10:21)
[2021-06-18] MEDS: ascorbic acid 500 mg Tablet PO ×2 (10:21→17:43)
[2021-06-18] MEDS: pantoprazole DR 40 mg Tablet PO (10:21)
[2021-06-18] MEDS: metoprolol tartrate 25 mg Tablet 12.5 MG PO ×2 (10:22→17:44)
[2021-06-18] MEDS: nystatin powder 15 gm Btl 1 APPLIC TOPICAL ×2 (10:23→17:44)
[2021-06-18] MEDS: neomycin-poly-bacitracin oint 28 gm 1 APPLIC TOPICAL ×2 (10:23→17:44)
[2021-06-18] MEDS: enoxaparin 100 mg/mL Syringe 90 MG SUBCUT ×2 (10:25→21:01)
[2021-06-18 11:19] LABS: Glucose Point of Care 275 mg/dL (70-110)
--- NOTE | 2021-06-18 14:13 | PM.PN ---
Subjective Subjective: Interval history: This morning patient was seen, she is alert oriented x2, no episodes of confusion overnight, afebrile, she continues to have pain over her abdominal site where the scooter lay on top of her, but tells me that the pain medication is helping, no nausea, no vomiting, and no fevers, no chills, tells me that she ate her entire breakfast this morning, she had a bowel movement yesterday Vitals/I&O/Wt Last Vital Signs Temp 97.6 F 06/18/21 11:43 Pulse 74 06/18/21 11:43 Resp 16 06/18/21 11:43 BP 147/66 06/18/21 11:43 Pulse Ox 92 06/18/21 11:43 06/17/21 06/18/21 06/18/21 22:59 06:59 14:59 Intake Total 200 / 2507.5 1440 / 3947.5 830 / 830 Output Total 500 / 500 375 / 375 Balance 200 / 2507.5 940 / 3447.5 455 / 455 Weight last 48 hrs Weight 83.37 kg Weight 90.718 kg Weight 90.718 kg Physical Exam Const: COMMON NORMALS: no acute distress ORIENTATION/CONSCIOUSNESS: Yes awake, Yes oriented to person and Yes oriented to place; not oriented to time Resp: COMMON NORMALS: normal respiratory effort, No retractions, No use of accessory muscles and clear to auscultation bilaterally AUSCULTATION: clear to auscultation bilaterally Cardio: COMMON NORMALS: regular rate, regular rhythm, S1 normal heart sound present and S2 normal heart sound present RATE: regular rate RHYTHM: regular rhythm HEART SOUNDS: S1 normal heart sound present and S2 normal heart sound present GI: COMMON NORMALS: Normal to inspection, nondistended, normoactive bowel sounds present, Soft to palpation and non-tender PALPATION: Yes Soft to palpation Extremity: COMMON NORMALS: no pedal edema Neuro: SENSORIUM/ORIENTATION: Yes oriented to person, Yes oriented to place and No oriented to time Psych: COMMON NORMALS: mental status grossly normal Skin: NARRATIVE SKIN EXAM: Abdomen, right upper quadrant, has multiple bili Mid abdomen, has a 2 x 2 centimeter black eschar Multiple superficial abrasions Urinary Catheter Management^: Krause: Cath Placed During This Visit: yes Reason for Continuing Indwelling Catheter: Acute Urinary Retention or Obstruction Urinary Catheter Date of Insertion: 06/17/21 Urinary Catheter Time of Insertion: 13:00 Data : 06/18/21 07:20 06/18/21 07:20 Micro: Microbiology 06/16/21 17:52 Urine Culture - Preliminary Urine,Clean Catch Gram Negative Rods A&P Assessment and plan (1) Fall from wheelchair: Accidental while trying to get into her wheelchair PT OT, Patient is agreeable to discharge to [facility] Status: Acute Qualifiers: Encounter type: initial encounter Qualified Code(s): W05.0XXA - Fall from non-moving wheelchair, initial encounter (2) 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: On the abdomen from her wheelchair lying on top of her for 2 days, 1 wound with central necrosis/eschar formation/unstageable and another area of wounds with skin shearing and blistering with surrounding erythema We will continue to monitor, consider surgical consultation if debridement is required Possible underlying cellulitis, continue vancomycin Status: Acute (3) Rhabdomyolysis: Currently on IV fluids Status: Acute Qualifiers: Rhabdomyolysis type: non-traumatic Qualified Code(s): M62.82 - Rhabdomyolysis (4) Acute kidney injury: Creatinine improved to 0.4 Status: Acute (5) Urinary tract infection: Currently on Primaxin, has a history of ESBL, CT scan of the abdomen pelvis did not note any obstructive uropathy or radiographic evidence of pyelonephritis Status: Acute Qualifiers: Urinary tract infection type: acute cystitis Hematuria presence: without hematuria Qualified Code(s): N30.00 - Acute cystitis without hematuria (6) Essential hypertension: Current blood pressures are low, hold blood pressure medications Status: Chronic (7) Atrial flutter: Hold Eliquis, start on therapeutic Lovenox Status: Chronic Qualifiers: Atrial flutter type: typical Qualified Code(s): I48.3 - Typical atrial flutter (8) Anticoagulated: On hold Status: Chronic (9) Diabetes: On insulin sliding scale Status: Chronic Qualifiers: Diabetes mellitus type: type 2 Diabetes mellitus fpc insulin use: with oil heaterman use Diabetes mellitus complication status: with hyperglycemia Qualified Code(s): E11.65 - Type 2 diabetes mellitus with hyperglycemia; 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 Additional A&P Information Follow-up pending urine culture Check blood cultures Repeat lactic acid in the morning on vancomycin for skin coverage Triple antibiotic ointment to abraded skin on abdominal wall Blistered skin is marked with dots Ecchymotic skin around the eschar formation is outlined Monitor abdominal wounds closely for worsening Continue home metoprolol at a lower dose currently Hold home amlodipine and lisinopril Continue home amiodarone Will hold Eliquis and treat with Lovenox currently in the event that she requires debridement of abdominal wounds Plan transition back to Eliquis when stable Continue home aspirin Continue home iron Sliding scale insulin Lower dose long-acting insulin Vitamin C and zinc for wound management Krause catheter for close monitoring of urine output and assistance with wound care management PT and OT eval Lovenox for DVT prophylaxis Chronically on PPI for GI prophylaxis Supportive care otherwise Plans discussed with patient and she was given opportunity to ask questions Anticipate discharge home when medically stable, has home health and typically is able to provide for her ADLs. May need some wound care assistance depending on clinical course. Also needs to have her wheelchair evaluated to ensure it is working okay for when she is able to return home. Full code Attestations Medical Necessity Statement*: Hospitalization for fall, with cellulitis of abdomen, pressure injury, UTI Coding Level of Care Code Acute Programs Director for Chg Fwd Diagnoses Fall from wheelchair W05.0XXA Encounter type: initial encounter 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 T85.898A; L89.90 Rhabdomyolysis M62.82 Rhabdomyolysis type: non-traumatic Acute kidney injury N17.9 Urinary tract infection N30.00 Urinary tract infection type: acute cystitis Hematuria presence: without hematuria Essential hypertension I10 Atrial flutter I48.3 Atrial flutter type: typical Anticoagulated Z79.01 Diabetes E11.65; Z79.4 Diabetes mellitus type: type 2 Diabetes mellitus oil heaterman insulin use: with fpc use Diabetes mellitus complication status: with hyperglycemia
[2021-06-18] MEDS: FUROsemide 10 mg/mL SDV 4mL 40 MG IVP (14:57)
[2021-06-18 16:49] LABS: Glucose Point of Care 361 mg/dL (70-110)
--- NOTE | 2021-06-18 17:04 | PC.CHAP ---
Pastoral Care Encounter/Spiritual Assessment Type of Contact [] Declined washhouse worker visit [] Patient/Family/Request visit [] Outpatient visit [] Follow-up visit [] Physician referral [] Code/Alert [XX] Routine visit [] Staff referral [] Actively dying [] Patient sleeping [] Family support [] [] Out of room [] Palliative care [] [] Receiving care in room [] Pre-surgical visit [] Trauma [] Long length of stay [] ICU visit [XX] Other: Brother present in room; visit was mostly with him. Relational/Emotional Strength [XX] Patient feels connected with others/family/visitors/staff [] Distress [] Loneliness/isolation [] Abandonment Spirituality of Patient [] Person of Shira [] Attends Jewish of their Shira [XX] Believes in Prayer [XX] Reads Bible or Anglican materials [] There are Spiritual issues to be addressed Publication Specialist Interventions [XX] Prayer [XX] Active listening [XX] Non-anxious presence [] Spiritual/emotional support [] Crisis/trauma care [] Spiritual counseling [] Bereavement support [] Provided bereavement packet [] Provided Bible/devotional materials [] Provided toy/stuffed animal, coloring book to patient or family member [] Provided Communion [] Anointing/[place] [] Salvation [XX] Completed spiritual assessment [] Other: Impact on Illness or Injury [] Angry [] Fearful [] Anxious [] Often cries [] Exhaustion [] Unable to work [] Unable to attend baptist [] Unable to walk/stand [] Unable to read [] Unable to drive [] Unable to eat/drink [] Unable to sleep [] Unable to be with family [] Patient intubated [XX] Other: unable to speak above a whisper; voice affected from yelling for help for 3 days Summary: Pt experienced a fall in her home and was on the floor for 3 days. Visit was mostly with her brother because pt could not speak due to strained vocal cords. Pt was delighted to receive Daily Bread and welcomed prayer. Time spent with patient: 15 mins
[2021-06-18 20:30] LABS: Glucose Point of Care 356 mg/dL (70-110)
[2021-06-19] VITALS (7 sets, daily range): BP systolic 136–176; BP diastolic 59–69; PULSE 61–112; RESP 16–18; TEMP 36.4–36.7; O2SAT 92–96
--- NOTE | 2021-06-19 03:59 | PC.NURSE ---
patient hallucinating, insisting that there is a man in her room sticking his hand in the manhole and pulling money out. alert and oriented to self time, place, and situation, speech clear, neuro WNL, responses appropriate, speech clear, able to make needs known and able to carry conversation without difficulty. no extended elapse time answering questions.
--- NOTE | 2021-06-19 05:27 | PC.NURSE ---
i reported high pulse 112 to nurse
[2021-06-19 06:43] LABS: Glucose Point of Care 192 mg/dL (70-110)
[2021-06-19 06:44] LABS: Basophils % 0.5 %; Eosinophils # 0.2 10^3/uL (0.0-0.8); Eosinophils % 4.5 %; Hematocrit 30.8 % (37.0-47.0); Hemoglobin 9.5 g/dL (11.5-15.3); Lymphocytes # 0.8 10^3/uL (0.8-4.8); Lymphocytes % 20.1 %; Mean Corpuscular HGB Conc 30.8 g/dL (30.0-36.0); Mean Corpuscular Hemoglobin 29.6 pg (28.0-34.0); Mean Platelet Volume 10.3 fL (7.4-10.4); Monocytes # 0.4 10^3/uL (0.2-0.9); Monocytes % 10.2 %; Neutrophils # 2.59 10^3/uL (1.8-7.7); Neutrophils % 64.5 %; Nucleated Red Blood Cells % 0 %; Platelet Count 272 10^3/cmm (130-400); Red Blood Count 3.21 10^6/uL (4.1-5.3); Red Cell Distribution Width 13.6 % (12.1-15.1)
[2021-06-19 07:06] LABS: Vancomycin Trough 10.2 ug/mL (10-15)
[2021-06-19 07:11] LABS: Creatine Phosphokinase 76 U/L (26-192)
[2021-06-19 07:12] LABS: Alanine Aminotransferase 25 U/L (0-33); Albumin Level 3.4 g/dL (3.5-5.2); Alkaline Phosphatase 67 IU/L (35-105); Anion Gap 14.5 (5-19); Aspartate Amino Transferase 23 U/L (0-32); Blood Urea Nitrogen 31 mg/dL (8-23); Calcium 9.1 mg/dL (8.5-10.5); Carbon Dioxide 25 mmol/L (22-29); Chloride 105 mmol/L (98-107); Globulin 2.2 g/dL (1.3-4.6); Glucose 174 mg/dL (65-115); Magnesium 1.6 mg/dL (1.7-2.3); Osmolality Calculated 303 mOsm/kg (285-295); Phosphorus 3.1 mg/dL (2.5-4.5); Potassium 3.5 mmol/L (3.5-5.1); Sodium 141 mmol/L (136-145); Total Bilirubin 0.2 mg/dL (0.15-1.2); Total Protein 5.6 g/dL (6.6-8.7)
[2021-06-19] MEDS: aspirin 81 mg EC Tablet PO (08:10)
[2021-06-19] MEDS: amiodarone 200 mg Tablet PO (08:10)
[2021-06-19] MEDS: metoprolol tartrate 25 mg Tablet 12.5 MG PO ×2 (08:10→17:32)
[2021-06-19] MEDS: zinc gluconate 50 mg Tablet PO (08:10)
[2021-06-19] MEDS: pantoprazole DR 40 mg Tablet PO (08:10)
[2021-06-19] MEDS: ferrous gluconate 324 mg Tablet PO (08:10)
[2021-06-19] MEDS: ascorbic acid 500 mg Tablet PO ×2 (08:10→17:33)
[2021-06-19] MEDS: neomycin-poly-bacitracin oint 28 gm 1 APPLIC TOPICAL ×2 (08:11→17:38)
[2021-06-19] MEDS: nystatin powder 15 gm Btl 1 APPLIC TOPICAL ×2 (08:11→17:39)
[2021-06-19] MEDS: vancomycin 1,000 MG in sodium chloride 0.9% 250 ML 250 MG IV (08:11)
--- NOTE | 2021-06-19 09:14 | PC.SOCIAL ---
IM Follow up reviewed and copy provided. Patient verbalized understanding and has no questions.
[2021-06-19] MEDS: enoxaparin 100 mg/mL Syringe 90 MG SUBCUT ×2 (11:04→21:33)
[2021-06-19 11:54] LABS: Glucose Point of Care 266 mg/dL (70-110)
[2021-06-19] MEDS: acetaminophen 325 mg Tablet 650 MG PO (13:52)
--- NOTE | 2021-06-19 15:47 | P.PN_ITS ---
Subjective Subjective: Interval history: Patient was seen this morning, she sitting up in bed, tells me that she is feeling a lot better, still having some pain at the site in which the scooter sat on her belly, but overall she is feeling better, she tells me that physical therapy helped her up to the side of the bed, Vitals/I&O/Wt Last Vital Signs Temp 98 F 06/19/21 15:00 Pulse 71 06/19/21 15:00 Resp 16 06/19/21 15:00 BP 136/63 06/19/21 15:00 Pulse Ox 92 06/19/21 15:00 06/19/21 06/19/21 06/19/21 06:59 14:59 22:59 Intake Total 560 / 1820 550 / 550 Output Total 1330 / 1705 800 / 800 300 / 1100 Balance -770 / 115 -250 / -250 -300 / -550 Weight last 48 hrs Weight 85.02 kg Weight 83.37 kg Physical Exam Const: COMMON NORMALS: no acute distress and patient oriented x3 Resp: COMMON NORMALS: normal respiratory effort, No retractions, No use of accessory muscles and clear to auscultation bilaterally AUSCULTATION: clear to auscultation bilaterally Cardio: COMMON NORMALS: regular rate, regular rhythm, S1 normal heart sound present and S2 normal heart sound present RATE: regular rate RHYTHM: regular rhythm HEART SOUNDS: S1 normal heart sound present and S2 normal heart sound present GI: COMMON NORMALS: Normal to inspection, nondistended, normoactive bowel sounds present, Soft to palpation, non-tender and No hepatosplenomegaly present PALPATION: Yes Soft to palpation and Yes No hepatosplenomegaly present Extremity: COMMON NORMALS: no pedal edema Neuro: COMMON NORMALS: patient oriented x3 Psych: COMMON NORMALS: mental status grossly normal Skin: NARRATIVE SKIN EXAM: Abdomen, right upper quadrant, has multiple bili Mid abdomen, has a 2 x 2 centimeter black eschar Multiple superficial abrasions Urinary Catheter Management^: Krause: Cath Placed During This Visit: yes Reason for Continuing Indwelling Catheter: Acute Urinary Retention or Obstruction Urinary Catheter Date of Insertion: 06/17/21 Urinary Catheter Time of Insertion: 13:00 Data : 06/19/21 06:21 06/19/21 06:21 Micro: Microbiology 06/16/21 17:52 Urine Culture - Final Urine,Clean Catch Escherichia coli 06/17/21 13:21 Urine Culture - Final Urine,Clean Catch A&P Assessment and plan (1) Fall from wheelchair: Accidental while trying to get into her wheelchair PT OT Patient is agreeable to discharge to [facility] Plan for today de-escalate antibiotic therapy, start PT OT, hopefully can discharge the next day for 48 hours Status: Acute Qualifiers: Encounter type: initial encounter Qualified Code(s): W05.0XXA - Fall from non-moving wheelchair, initial encounter (2) 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: On the abdomen from her wheelchair lying on top of her for 2 days, 1 wound with central necrosis/eschar formation/unstageable and another area of wounds with skin shearing and blistering with surrounding erythema We will continue to monitor, consider surgical consultation if debridement is required Possible underlying cellulitis, de-escalate to doxycycline Augmentin Status: Acute (3) Rhabdomyolysis: Stop IV fluids Status: Acute Qualifiers: Rhabdomyolysis type: non-traumatic Qualified Code(s): M62.82 - Rhabdomyolysis (4) Acute kidney injury: Creatinine improved to 0.5 Status: Acute (5) Urinary tract infection: Urine culture showing E. coli, de-escalate Primaxin to Augmentin has a history of ESBL, CT scan of the abdomen pelvis did not note any obstructive uropathy or radiographic evidence of pyelonephritis Status: Acute Qualifiers: Urinary tract infection type: acute cystitis Hematuria presence: w ithout hematuria Qualified Code(s): N30.00 - Acute cystitis without hematuria (6) Essential hypertension: Current blood pressures are low, hold blood pressure medications Status: Chronic (7) Atrial flutter: Hold Eliquis, start on therapeutic Lovenox Status: Chronic Qualifiers: Atrial flutter type: typical Qualified Code(s): I48.3 - Typical atrial flutter (8) Anticoagulated: On hold Status: Chronic (9) Diabetes: On insulin sliding scale Status: Chronic Qualifiers: Diabetes mellitus type: type 2 Diabetes mellitus correction insulin use: with termite inspector use Diabetes mellitus complication status: with hyperglycemia Qualified Code(s): E11.65 - Type 2 diabetes mellitus with hyperglycemia; 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 Additional A&P Information Triple antibiotic ointment to abraded skin on abdominal wall Blistered skin is marked with dots Ecchymotic skin around the eschar formation is outlined Monitor abdominal wounds closely for worsening Continue home metoprolol at a lower dose currently Hold home amlodipine and lisinopril Continue home amiodarone Will hold Eliquis and treat with Lovenox currently in the event that she requires debridement of abdominal wounds Plan transition back to Eliquis when stable Continue home aspirin Continue home iron Sliding scale insulin Lower dose long-acting insulin Vitamin C and zinc for wound management Krause catheter for close monitoring of urine output and assistance with wound care management PT and OT eval Lovenox for DVT prophylaxis Chronically on PPI for GI prophylaxis Supportive care otherwise Plans discussed with patient and she was given opportunity to ask questions Anticipate discharge home when medically stable, has home health and typically is able to provide for her ADLs. May need some wound care assistance depending on clinical course. Also needs to have her wheelchair evaluated to ensure it is working okay for when she is able to return home. Full code Attestations Medical Necessity Statement*: Patient requires hospitalization for UTI, rhabdo, fall, Coding Level of Care Code Acute Guitar Maker Hand for Chg Fwd Diagnoses Fall from wheelchair W05.0XXA Encounter type: initial encounter 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 T85.898A; L89.90 Rhabdomyolysis M62.82 Rhabdomyolysis type: non-traumatic Acute kidney injury N17.9 Urinary tract infection N30.00 Urinary tract infection type: acute cystitis Hematuria presence: without hematuria Essential hypertension I10 Atrial flutter I48.3 Atrial flutter type: typical Anticoagulated Z79.01 Diabetes E11.65; Z79.4 Diabetes mellitus type: type 2 Diabetes mellitus correction insulin use: with correction use Diabetes mellitus complication status: with hyperglycemia
[2021-06-19 17:05] LABS: Glucose Point of Care 407 mg/dL (70-110)
[2021-06-19] MEDS: doxycycline 100 mg Tablet PO (17:33)
[2021-06-19] MEDS: amoxicillin-clav 875-125 mg Tablet 1 TAB PO (17:33)
[2021-06-19 20:31] LABS: Glucose Point of Care 330 mg/dL (70-110)
[2021-06-20] VITALS (8 sets, daily range): BP systolic 148–190; BP diastolic 60–74; PULSE 61–68; RESP 16–18; TEMP 36.6–36.8; O2SAT 91–94
[2021-06-20] MEDS: acetaminophen 325 mg Tablet 650 MG PO (00:30)
[2021-06-20 06:33] LABS: Glucose Point of Care 235 mg/dL (70-110)
[2021-06-20 06:46] LABS: Basophils % 0.8 %; Eosinophils # 0.2 10^3/uL (0.0-0.8); Eosinophils % 5.2 %; Hematocrit 29.8 % (37.0-47.0); Hemoglobin 9.4 g/dL (11.5-15.3); Lymphocytes # 0.9 10^3/uL (0.8-4.8); Lymphocytes % 23.3 %; Mean Corpuscular HGB Conc 31.5 g/dL (30.0-36.0); Mean Corpuscular Hemoglobin 29.7 pg (28.0-34.0); Monocytes # 0.4 10^3/uL (0.2-0.9); Monocytes % 10.7 %; Neutrophils # 2.16 10^3/uL (1.8-7.7); Neutrophils % 59.2 %; Nucleated Red Blood Cells % 0 %; Platelet Count 287 10^3/cmm (130-400); Red Blood Count 3.17 10^6/uL (4.1-5.3); Red Cell Distribution Width 13.4 % (12.1-15.1); White Blood Count 3.7 10^3/uL (4.0-10.0)
[2021-06-20 07:05] LABS: Alanine Aminotransferase 21 U/L (0-33); Albumin Level 3.4 g/dL (3.5-5.2); Alkaline Phosphatase 66 IU/L (35-105); Anion Gap 14.1 (5-19); Aspartate Amino Transferase 22 U/L (0-32); Blood Urea Nitrogen 23 mg/dL (8-23); Calcium 8.9 mg/dL (8.5-10.5); Carbon Dioxide 26 mmol/L (22-29); Chloride 103 mmol/L (98-107); Globulin 2.5 g/dL (1.3-4.6); Glucose 224 mg/dL (65-115); Magnesium 1.6 mg/dL (1.7-2.3); Osmolality Calculated 299 mOsm/kg (285-295); Phosphorus 2.8 mg/dL (2.5-4.5); Potassium 4.1 mmol/L (3.5-5.1); Sodium 139 mmol/L (136-145); Total Bilirubin 0.2 mg/dL (0.15-1.2); Total Protein 5.9 g/dL (6.6-8.7)
[2021-06-20 07:11] LABS: Creatine Phosphokinase 59 U/L (26-192)
[2021-06-20] MEDS: amoxicillin-clav 875-125 mg Tablet 1 TAB PO ×2 (08:11→17:41)
[2021-06-20] MEDS: ferrous gluconate 324 mg Tablet PO (08:12)
[2021-06-20] MEDS: pantoprazole DR 40 mg Tablet PO (08:12)
[2021-06-20] MEDS: ascorbic acid 500 mg Tablet PO ×2 (08:12→17:41)
[2021-06-20] MEDS: aspirin 81 mg EC Tablet PO (08:12)
[2021-06-20] MEDS: zinc gluconate 50 mg Tablet PO (08:12)
[2021-06-20] MEDS: metoprolol tartrate 25 mg Tablet 12.5 MG PO (08:12)
[2021-06-20] MEDS: doxycycline 100 mg Tablet PO ×2 (08:12→17:41)
[2021-06-20] MEDS: amiodarone 200 mg Tablet PO (08:12)
[2021-06-20] MEDS: enoxaparin 100 mg/mL Syringe 90 MG SUBCUT (08:13)
[2021-06-20] MEDS: neomycin-poly-bacitracin oint 28 gm 1 APPLIC TOPICAL ×2 (08:15→17:43)
[2021-06-20] MEDS: nystatin powder 15 gm Btl 1 APPLIC TOPICAL ×2 (08:15→17:43)
[2021-06-20] MEDS: amlodipine 10 mg Tablet PO (10:34)
[2021-06-20 11:31] LABS: Glucose Point of Care 315 mg/dL (70-110)
--- NOTE | 2021-06-20 14:58 | P.DS_ITS ---
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: Status: Acute (3) Rhabdomyolysis: Status: Acute Qualifiers: Rhabdomyolysis type: non-traumatic Qualified Code(s): M62.82 - Rhabdomyolysis (4) Acute kidney injury: Status: Acute (5) Urinary tract infection: Status: Acute Qualifiers: Urinary tract infection type: acute cystitis Hematuria presence: without hematuria Qualified Code(s): N30.00 - Acute cystitis without hematuria (6) Essential hypertension: Status: Chronic (7) Atrial flutter: Status: Chronic Qualifiers: Atrial flutter type: typical Qualified Code(s): I48.3 - Typical atrial flutter (8) Anticoagulated: Status: Chronic Permanent problem details: Eliquis for atrial flutter (9) Diabetes: Status: Chronic Qualifiers: Diabetes mellitus type: type 2 Diabetes mellitus detention 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 Diabetes mellitus complication status: with hyperglycemia Qualified Code(s): E11.65 - Type 2 diabetes mellitus with hyperglycemia; 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 Reason for Visit Reason for Visit: FALL BEEN IN FLOOR 2 DAYS Hospital Course Hospital Course This is a 71-year-old female with a past medical history of atrial fibrillation on Eliquis, insulin-dependent type 2 diabetes mellitus, hypertension, hyperlipidemia, history of ESBL UTI who presents to [facility] due to fall from a wheelchair Due to her fall from a wheelchair, she was found with a wheelchair on top of her, she received PT OT during inpatient care, she had increased needs for assistance of daily living, is deconditioning, concerns for muscle wasting, high risk of falls. I have strongly advised for senior living placement, and initially patient was agreeable, and the process was started for senior living placement however patient changed her mind later on, and wanted to be discharged home. I voiced my concern strongly due to her risk of falls, deconditioning, muscle wasting, that I am concerned for her wellbeing at home. However patient declined senior living placement, advised that she has close family friends, and she has nursing help at home that comes once daily. After discussing the risks of going home with her conditions as above, advised the morbidity and mortality, she voiced understanding, all questions answered, declined senior living placement, proceeded to go home. Patient had multiple pressure injuries from the wheelchair being on top of her, on her abdomen, had superficial abrasions, blisters, and a black eschar on her abdomen. There was also concern for surrounding cellulitis. She was managed with broad-spectrum antibiotic therapy, no debridement was required, and she received wound care. Patient will be discharged on antibiotics for 7 remaining days, with daily dressing changes, wound care, with a follow-up with wound clinic as outpatient. The black eschar on her abdomen might require debridement in the near future, and requires close monitoring. Patient also had a UTI during her hospitalization, treated with inpatient antibiotics, cultures grew pansensitive E. coli discharged on Augmentin as above Patient had YULIYA with rhabdomyolysis, secondary to prolonged immobility, treated with fluid therapy, clinically improved. Physical Exam Const: COMMON NORMALS: no acute distress and patient oriented x3 Resp: COMMON NORMALS: normal respiratory effort, No retractions, No use of accessory muscles and clear to auscultation bilaterally AUSCULTATION: clear to auscultation bilaterally Cardio: COMMON NORMALS: regular rate, regular rhythm, S1 normal heart sound present and S2 normal heart sound present RATE: regular rate RHYTHM: regular rhythm HEART SOUNDS: S1 normal heart sound present and S2 normal heart sound present GI: COMMON NORMALS: Normal to inspection, nondistended, normoactive bowel sounds present, Soft to palpation and non-tender PALPATION: Yes Soft to palpation Extremity: COMMON NORMALS: no pedal edema Neuro: COMMON NORMALS: patient oriented x3 Psych: COMMON NORMALS: mental status grossly normal Skin: NARRATIVE SKIN EXAM: Abdomen, right upper quadrant, has multiple bili Mid abdomen, has a 2 x 2 centimeter black eschar Multiple superficial abrasions Urinary Catheter Management^: Krause: Cath Placed During This Visit: yes Reason for Continuing Indwelling Catheter: Acute Urinary Retention or Obstruction Urinary Catheter Date of Insertion: 06/17/21 Urinary Catheter Time of Insertion: 13:00 Discharge Data Data Completed and Pending: Completed Studies During Hospitalization Category Date Time Status CT cervical spin wo con* [id number] Urge nt Cat Scan 06/16/21 17:[address] chest abd pel w con* Urgent Cat Scan 06/16/21 17:[address] head wo con* [id number] Urgent Cat Scan 06/16/21 17:18 Completed XR foot LT min 3V * [id number] Urgent Exams 06/16/21 17:20 Completed XR foot RT min 3V * [id number] Urgent Exams 06/16/21 17:20 Completed Labs from last 24 hours 06/20/21 06/20/21 06/20/21 10:57 06:23 06:23 WBC RBC Hgb Hct MCV MCH MCHC RDW Plt Count MPV Neut % (Auto) Lymph % (Auto) [place] % (Auto) Eos % (Auto) Baso % (Auto) Neut # (Auto) Lymph # (Auto) [place] # (Auto) Eos # (Auto) Baso # (Auto) Nucleated RBC % (a uto) Nucleated RBCs # Sodium 139 Potassium 4.1 Chloride 103 Carbon Dioxide 26 Anion Gap 14.1 BUN 23 Creatinine 0.4 L GFR Calculation Not Reportable Glucose 224 H POC Glucose 315 H Calculated Osmolal ity 299 H Calcium 8.9 Phosphorus 2.8 Magnesium 1.6 L Total Bilirubin 0.2 AST 22 ALT 21 Alkaline Phosphata se 66 Creatine Kinase 59 Total Protein 5.9 L Albumin 3.4 L Globulin 2.5 06/20/21 06/20/21 06/19/21 06:23 06:13 20:17 WBC 3.7 L RBC 3.17 L Hgb 9.4 L Hct 29.8 L MCV 94.0 MCH 29.7 MCHC 31.5 RDW 13.4 Plt Count 287 MPV 10.0 Neut % (Auto) 59.2 Lymph % (Auto) 23.3 [place] % (Auto) 10.7 Eos % (Auto) 5.2 Baso % (Auto) 0.8 Neut # (Auto) 2.16 Lymph # (Auto) 0.9 [place] # (Auto) 0.4 Eos # (Auto) 0.2 Baso # (Auto) 0.0 Nucleated RBC % (a uto) 0 Nucleated RBCs # 0.0 Sodium Potassium Chloride Carbon Dioxide Anion Gap BUN Creatinine GFR Calculation Glucose POC Glucose 235 H 330 H Calculated Osmolal ity Calcium Phosphorus Magnesium Total Bilirubin AST ALT Alkaline Phosphata se Creatine Kinase Total Protein Albumin Globulin 06/19/21 16:42 WBC RBC Hgb Hct MCV MCH MCHC RDW Plt Count MPV Neut % (Auto) Lymph % (Auto) [place] % (Auto) Eos % (Auto) Baso % (Auto) Neut # (Auto) Lymph # (Auto) [place] # (Auto) Eos # (Auto) Baso # (Auto) Nucleated RBC % (a uto) Nucleated RBCs # Sodium Potassium Chloride Carbon Dioxide Anion Gap BUN Creatinine GFR Calculation Glucose POC Glucose 407 H Calculated Osmolal ity Calcium Phosphorus Magnesium Total Bilirubin AST ALT Alkaline Phosphata se Creatine Kinase Total Protein Albumin Globulin Vitals: Last Vital Signs Temp 97.9 F 06/20/21 11:00 Pulse 67 06/20/21 11:00 Resp 18 06/20/21 11:00 BP 180/71 06/20/21 11:00 Pulse Ox 92 06/20/21 11:00 Discharge Plan Discharge Patient Disposition: Home Condition: Stable Prescriptions: New amoxicillin-pot clavulanate 875-125 mg Tablet 1 tab PO BID 7 Days Qty: 14 RF: 0 doxycycline monohydrate 100 mg Tablet 100 mg PO BID 7 Days Qty: 14 RF: 0 insulin aspart U-100 [Novolog Flexpen U-100 Insulin] 100 unit/mL (3 mL) insulin pen See Rx Instructions .ROUTE .COMPLEX Qty: 15 RF: 0 Triple Antibiotic 3.5mg-400 unit- 5,000 unit/gram Ointment 1 applic topical BID 30 Days Qty: 30 RF: 0 nystatin [Nystop] 100,000 unit/gram Powder 1 applic topical BID 30 Days Qty: 60 RF: 0 Continued ibuprofen 600 mg tablet 600 mg PO TID PRN (Reason: pain) RF: 0 lisinopril 20 mg tablet 20 mg PO BID Qty: 180 RF: 3 metformin 1,000 mg tablet 1,000 mg PO BID Qty: 60 RF: 0 amiodarone 200 mg tablet 200 mg PO DAILY 90 Days Qty: 90 RF: 3 Eliquis 5 mg tablet 5 mg PO BID Qty: 180 RF: 3 multivitamin [Multiple Vitamins] Tablet 1 tab PO DAILY RF: 0 trazodone 50 mg Tablet 50 mg PO BEDTIME RF: 0 magnesium oxide 400 mg (241.3 mg magnesium) Tablet 400 mg PO BID RF: 0 omeprazole 20 mg Capsule,Delayed Release(Dr/Ec) 20 mg PO DAILY RF: 0 fenofibrate nanocrystallized [Tricor] 145 mg Tablet 145 mg PO BEDTIME RF: 0 ferrous gluconate 324 mg (38 mg iron) Tablet 324 mg PO DAILY RF: 0 Vitamin D3 1 cap PO DAILY RF: 0 aspirin [Adult Aspirin Regimen] 81 mg tablet,delayed release (DR/EC) 81 mg PO DAILY RF: 0 Vitamin C 500 mg Tablet 500 mg PO DAILY RF: 0 nitroglycerin 0.4 mg Tablet, Sublingual 0.4 mg SUBLINGUAL Q5M PRN (Reason: Chest Pain) RF: 0 PreserVision AREDS [id number],[id number] Capsule 1 cap PO BID RF: 0 amlodipine 10 mg tablet 10 mg PO DAILY RF: 0 metoprolol tartrate 25 mg tablet 25 mg PO BID RF: 0 Changed Levemir FlexTouch U-100 Insuln 100 unit/mL (3 mL) Insulin Pen See Rx Instructions .ROUTE .COMPLEX Qty: 0 RF: 0 Discontinued baclofen 10 mg tablet 10 mg PO DAILY PRN (Reason: UNKNOWN) RF: 0 loratadine 10 mg tablet 10 mg PO DAILY Qty: 30 RF: 3 glipizide 5 mg tablet 5 mg PO BID Qty: 180 RF: 0 Discharge Orders: Discharge Order (Routine); Ordered 06/20/21 Ordered By: Mickey Manning Referrals: WOUND CARE CLINIC, [Staff Physician] - 1-3 days (abdominal wounds) Discharge Diet: Cardiac Discharge Activity: Resume usual activity Patient Instructions: Opioid Safety Activity Restrictions/Additional Instructions: -[id number] dressing changes for abdominal wounds, wound care -With wound clinic in a few days -I have decreased her Levemir to 10 units in the morning, 20 units at bedtime -I have also discharged you on a NovoLog sliding scale, to be injected subcu, 3 times daily, before meals, based on sliding scale provided -Do not inject NovoLog if you do not eat, as it is associated with hypoglycemia, and risk of -Check blood sugars 3 times daily, if blood sugar than 500 call primary care if blood sugar less than 60 drink or juice or eat a hard candy and call primary care -Bring blood sugar logs to her primary care physician -Take antibiotics for UTI -INSULIN SLIDING SCALE Fingerstick Blood Glucose Insulin Units 141-180 mg/dl 1 units/SQ 181-220 mg/dl 2 units/SQ 221-260 mg/dl 3 units/SQ 261-300 mg/dl 4 units/SQ 301-350 mg/dl 5 units/SQ 351-400 mg/dl 6 units/SQ greater than 400 mg/dl 7 units/SQ Discharge Attestations Time Spent in Discharge Care*: less than 30 min Quality Metrics Clinical Quality Measures During this hospital stay, did patient experience: None Coding Level of Care Code Acute Chg FW DC note Diagnoses Fall from wheelchair W05.0XXA Encounter type: initial encounter 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
[2021-06-20 16:27] LABS: Glucose Point of Care 282 mg/dL (70-110)
[2021-06-20] MEDS: metoprolol tartrate 25 mg Tablet PO (17:41)
[2021-06-20] MEDS: lisinopril 20 mg Tablet PO (17:41)
--- NOTE | 2021-06-20 18:00 | PC.NURSE ---
Patient Krause Catheter removed at this time and patient tolerated well.
--- NOTE | 2021-06-20 18:30 | NUR.SHIFT ---
Patient IV removed intact at this time. Patient tolerated well. Reviewed discharge instructions with patient at this time. Patient is A&Ox3. Respirations even and non-labored on room air. Patient verbalized understanding of discharge instructions including changes to medications and follow up appointments. Patient assisted into a wheel chair and transported to medicaid transport van.
--- NOTE | 2021-06-21 10:52 | PC.SOCIAL ---
discharge follow up call made. patient hadn't picked up medications. all medications were called in to [facility] in [place]. Patients family will pickers material handlers the medications today. [employer] called to arrange transportation for follow up appointments. For [place] 06-22 trip # [id number], for wound care clinic trip # [phone]. Lolis, home health nurse was at patients home when i called back to give her pickers material handlers times. Lolis wrote down the times for patient. She will also be there tomorrow to assure patient gets medications picked up and is taking as prescribed.
== END 2021-06-20 18:40 | disposition home health service (06) | DRG 690 ==
LOC: ER 21:37 → MEDSURG 06-17 05:57
PROVIDERS: Admitting Provider Hospitalist; Emergency Provider Emergency Medicine; Visit Provider Family Medicine
DX: N30.00 Acute cystitis without hematuria (principal); N17.9 Acute kidney failure, unspecified; L03.311 Cellulitis of abdominal wall; M62.82 Rhabdomyolysis; I48.3 Typical atrial flutter; Z16.12 Extended spectrum beta lactamase (ESBL) resistance; L89.899 Pressure ulcer of other site, unspecified stage; W05.0XXA Fall from non-moving wheelchair, initial encounter; B96.20 Unspecified Escherichia coli [E. coli] as the cause of diseases classified elsewhere; E11.65 Type 2 diabetes mellitus with hyperglycemia; G14 Postpolio syndrome; I10 Essential (primary) hypertension; E78.5 Hyperlipidemia, unspecified; Z79.4 Long term (current) use of insulin; Z99.3 Dependence on wheelchair; Z95.2 Presence of prosthetic heart valve; Z79.01 Long term (current) use of anticoagulants; Z91.81 History of falling; Z87.440 Personal history of urinary (tract) infections
CPT/HCPCS: 36415; 36416; 36600; 51702; 70450; 71260; 72125; 73630; 74177; 80053; 80202; 81001; 82009; 82550; 82803; 82962; 83036; 83605; 83735; 83880; 84100; 84443; 85025; 85610; 85730; 87077; 87086; 87186; 90471; 90715; 93005; 96361; 96365; 96372; 97110; 97161; 97165; 97530; 97535; 99285; J0696; J0743; J1650; J1815; J1940; J3370; J7030; J7040; J7050; Q9967

== ENCOUNTER 2021-06-26 13:25 | Outpatient (CLI) | payer MEDICARE, MEDICAID, SELFPAY | END 2021-06-26 13:26 | disposition home or self-care (01) | LOC: WOUND 13:27 | PROVIDERS: Visit Provider Emergency Medicine | DX: I96 Gangrene, not elsewhere classified (principal); L98.491 Non-pressure chronic ulcer of skin of other sites limited to breakdown of skin; L97.811 Non-pressure chronic ulcer of other part of right lower leg limited to breakdown of skin; E11.9 Type 2 diabetes mellitus without complications; I10 Essential (primary) hypertension | CPT/HCPCS: 11042; 11045; 87070; 87176; 87205; 99204; A6220; G0463 ==

== ENCOUNTER 2021-07-03 13:38 | Outpatient (CLI) | payer MEDICARE, MEDICAID, SELFPAY | END 2021-07-03 13:39 | disposition home or self-care (01) | LOC: WOUND 13:40 | PROVIDERS: Visit Provider Emergency Medicine | DX: L98.491 Non-pressure chronic ulcer of skin of other sites limited to breakdown of skin (principal); E11.9 Type 2 diabetes mellitus without complications | CPT/HCPCS: 11042; A6219 ==

== ENCOUNTER 2021-07-10 10:01 | Outpatient (CLI) | payer MEDICARE, MEDICAID, SELFPAY | END 2021-07-10 10:02 | disposition home or self-care (01) | LOC: WOUND 10:05 | PROVIDERS: PCP Physician Assistant Medical; Visit Provider Emergency Medicine | DX: L98.491 Non-pressure chronic ulcer of skin of other sites limited to breakdown of skin (principal) | CPT/HCPCS: 11042 ==

== ENCOUNTER 2021-07-17 10:17 | Outpatient (CLI) | payer MEDICARE, MEDICAID, SELFPAY | END 2021-07-17 10:18 | disposition home or self-care (01) | LOC: WOUND 10:18 | PROVIDERS: PCP Physician Assistant Medical; Visit Provider Emergency Medicine | DX: E11.622 Type 2 diabetes mellitus with other skin ulcer (principal); L98.491 Non-pressure chronic ulcer of skin of other sites limited to breakdown of skin | CPT/HCPCS: 11042 ==

== ENCOUNTER 2021-07-24 09:48 | Outpatient (CLI) | payer MEDICARE, MEDICAID, SELFPAY | END 2021-07-24 09:49 | disposition home or self-care (01) | LOC: WOUND 09:49 | PROVIDERS: PCP Physician Assistant Medical; Visit Provider Emergency Medicine | DX: L89.892 Pressure ulcer of other site, stage 2 (principal); E11.9 Type 2 diabetes mellitus without complications | CPT/HCPCS: 11042 ==

== ENCOUNTER 2021-07-31 10:14 | Outpatient (CLI) | payer MEDICARE, MEDICAID, SELFPAY | END 2021-07-31 10:15 | disposition home or self-care (01) | LOC: WOUND 10:15 | PROVIDERS: PCP Physician Assistant Medical; Visit Provider Emergency Medicine | DX: E11.622 Type 2 diabetes mellitus with other skin ulcer (principal); L98.491 Non-pressure chronic ulcer of skin of other sites limited to breakdown of skin; M62.82 Rhabdomyolysis | CPT/HCPCS: 11042 ==

== ENCOUNTER 2021-08-07 09:26 | Outpatient (CLI) | payer MEDICARE, MEDICAID, SELFPAY | END 2021-08-07 09:27 | disposition home or self-care (01) | LOC: WOUND 09:27 | PROVIDERS: PCP Physician Assistant Medical; Visit Provider Nurse Practitioner Family | DX: E11.622 Type 2 diabetes mellitus with other skin ulcer (principal); L98.491 Non-pressure chronic ulcer of skin of other sites limited to breakdown of skin | CPT/HCPCS: 11042 ==

== ENCOUNTER 2021-08-11 14:37 | Outpatient (CLI) | payer MEDICARE, MEDICAID, SELFPAY ==
--- NOTE | 2021-08-11 15:00 | USCV_ITS ---
Renae Padilla Age: 71 Gender: F : 1950 Exam Date: 08/11/2021 15:00 Ordering Phys: Bossman Gonzalez MD ([email or web address]) Technologist: Emelyn Benton [place] [facility] [place]: SHORTNESS OF BREATH BP: 116 / 60 HR: 54 Rhythm: Sinus Technical Quality: Technically difficult study MEASUREMENTS (Male / Female) Normal Values 2D ECHO LV Diastolic Diameter PLAX 4.2 cm 4.2 - 5.9 / 3.9 - 5.3 cm LV Systolic Diameter PLAX 2.7 cm IVS Diastolic Thickness 1.5 cm 0.6 - 1.0 / 0.6 - 0.9 cm IVS Systolic Thickness 1.8 cm LVPW Diastolic Thickness 1.8 cm 0.6 - 1.0 / 0.6 - 0.9 cm LVPW Systolic Thickness 1.9 cm RV Chamber Size 2.5 cm LVOT Diameter 2.1 cm LV Ejection Fraction 2D Teich 65.4 % LA Diameter 2.6 cm LA Width 4.1 cm LA Height 4.4 cm RA Width 2.8 cm RA Height 4.9 cm Aorta at Sinotubular Diameter 1.7 cm DOPPLER AV Peak Velocity 125.0 cm/s LVOT Peak Velocity 78.0 cm/s AV Area Cont Eq vti 2.2 cm squared AV Area Cont Eq pk 2.1 cm squared MV Peak Velocity 202.0 cm/s MV Area PHT 1.7 cm squared Mitral E to A Ratio 2.1 MV E' Velocity 206.0 cm/s TR Peak Velocity 310.7 cm/s TR Peak Gradient 38.6 mmHg TV Peak E Velocity 50.0 cm/s Right Atrial Pressure 3.0 mmHg Pulmonary Artery Systolic Pressu 41.6 mmHg PV Peak Velocity 131.0 cm/s RV Acceleration Time 0.1 s RV Ejection Time 0.4 s RV AcT/ET 0.2 FINDINGS Left Ventricle Normal left ventricular cavity size. Moderate left ventricular hypertrophy of concentric type. Left ventricular ejection fraction is estimated at 65 %. Grade II/IV diastolic dysfunction, moderately elevated filling pressures. Right Ventricle The right ventricle is normal in size and function. Right Atrium The right atrium is normal in size. Left Atrium Moderately increased left atrial size. Mitral Valve Severely thickened mitral valve. Severe mitral annular calcification. No mitral valve stenosis. Aortic Valve Aortic valve not well visualized. Tricuspid Valve Structurally normal tricuspid valve without significant stenosis or regurgitation. Pulmonary artery systolic pressure is normal. Pulmonic Valve Structurally normal pulmonic valve without significant stenosis. There is no pulmonic regurgitation. Pericardium Normal pericardium without effusion. Aorta Normal ascending aorta dimension. CONCLUSIONS 1-Normal left ventricular cavity size. Moderate left ventricular hypertrophy of concentric type. Left ventricular ejection fraction is estimated at 65 %. Grade II/IV diastolic dysfunction, moderately elevated filling pressures. 2-Moderately increased left atrial size. 3-Structurally normal aortic valve without significant sclerosis or stenosis. There is no aortic regurgitation. 4-Severely thickened mitral valve. Severe mitral annular calcification. No mitral valve stenosis. 5-There is no pericardial effusion. 6-Cannot compare with prior echocardiogram due to suboptimal quality of the study Bossman Gonzalez MD (Electronically Signed) Final Date: 16 August 2021 19:27 S
== END 2021-08-11 14:38 | disposition home or self-care (01) ==
LOC: RAD 14:42
PROVIDERS: PCP Physician Assistant Medical; Visit Provider Internal Medicine Cardiovascular Disease
DX: R06.02 Shortness of breath (principal); I05.9 Rheumatic mitral valve disease, unspecified
CPT/HCPCS: 93306

== ENCOUNTER 2021-08-14 09:20 | Outpatient (CLI) | payer MEDICARE, MEDICAID, SELFPAY | END 2021-08-14 09:21 | disposition home or self-care (01) | LOC: WOUND 09:21 | PROVIDERS: PCP Physician Assistant Medical; Visit Provider Emergency Medicine | DX: L89.892 Pressure ulcer of other site, stage 2 (principal); I10 Essential (primary) hypertension; E11.9 Type 2 diabetes mellitus without complications | CPT/HCPCS: 11042; A6219 ==

== ENCOUNTER 2021-08-21 09:19 | Outpatient (CLI) | payer MEDICARE, MEDICAID, SELFPAY | END 2021-08-21 09:20 | disposition home or self-care (01) | LOC: WOUND 09:20 | PROVIDERS: PCP Physician Assistant Medical; Visit Provider Nurse Practitioner Family | DX: I96 Gangrene, not elsewhere classified (principal); L98.491 Non-pressure chronic ulcer of skin of other sites limited to breakdown of skin | CPT/HCPCS: 11042 ==

== ENCOUNTER 2021-08-28 09:15 | Outpatient (CLI) | payer MEDICARE, MEDICAID, SELFPAY | END 2021-08-28 09:16 | disposition home or self-care (01) | LOC: WOUND 09:17 | PROVIDERS: PCP Physician Assistant Medical; Visit Provider Emergency Medicine | DX: L89.892 Pressure ulcer of other site, stage 2 (principal); E11.9 Type 2 diabetes mellitus without complications; I10 Essential (primary) hypertension | CPT/HCPCS: 11042 ==

== ENCOUNTER 2021-09-11 09:16 | Outpatient (CLI) | payer MEDICARE, MEDICAID, SELFPAY | END 2021-09-11 09:17 | disposition home or self-care (01) | LOC: WOUND 09:17 | PROVIDERS: PCP Physician Assistant Medical; Visit Provider Emergency Medicine | DX: Z09 Encounter for follow-up examination after completed treatment for conditions other than malignant neoplasm (principal) | CPT/HCPCS: G0463 ==

== ENCOUNTER 2021-09-22 11:57 | Emergency (ER) | payer MEDICARE, MEDICAID, SELFPAY ==
[2021-09-22 12:08] VITALS: BP 169/69; PULSE 86; RESP 18; TEMP 36.6; O2SAT 93; BMI 37.6
--- NOTE | 2021-09-22 12:34 | CT_ITS ---
WS: [id number] CT HEAD NONCONTRAST HISTORY: trauma TECHNIQUE: Contiguous axial imaging performed through the brain in 2.5 mm imaging. Bone and soft tiss ue windows. Sagittal and coronal reformats reviewed. All CT scans at [facility] use at least one of these dose optimization techniques: automated exposure control; mA and/or kV adjustment per pa tient size (includes targeted exams where dose is matched to clinical indication); or iterative recon struction. DLP: 1751.57 mGy.cm COMPARISON: 07/13/2021 No acute intracranial hemorrhage, midline shift or mass effect. Mild bilateral atrophy. Mild chronic microvascular ischemic disease. 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 There is also mild cerebellar atrophy. Ventricles: Very mild ventriculomegaly on the basis of atrophy. Paranasal sinuses: As visualized are clear. Mastoid air cells: Well pneumatized. Calvarium and scalp: Skull is intact with no soft tissue edema or swelling. CT/CT head wo con* [id number] IMPRESSION: 1. No acute intracranial hemorrhage or edema. 2. Mild atrophy and mild chronic microvascular ischemic disease. Stable noncon trast head CT.
--- NOTE | 2021-09-22 12:34 | ECG_ITS ---
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 Measurements Intervals [place] Rate: 83 P: 206 ID: [id number] QRS: 20 QRSD: 105 T: 55 QT: 402 QTc: 473 Interpretive Statements SINUS RHYTHM Compared to ECG 06/17/2021 05:30:45 ST (T wave) deviation no longer present Electronically Signed On 09-23-2021 7:37:14 [employer]ATE by Rizwan Cheng M.D. [id number]
--- NOTE | 2021-09-22 12:34 | XR_ITS ---
WS: [id number] Exam: XR knee RT 3V* [id number] Date/Time of Exam: 09/22/2021 12:39 PM Reason For Exam: pain No acute fracture or dislocation noted. No joint effusion is seen. There is osteopenia. There is defo rmity of the proximal tibia which may be developmental or secondary to previous trauma. XR/XR knee RT 3V* [id number] IMPRESSION: 1. No fracture or joint effusion. 2. Osteopenia. Deformity of the proximal tibia that may be developmental or cou ld be secondary to previous trauma.
--- NOTE | 2021-09-22 12:35 | XR_ITS ---
WS: [id number] Exam: XR chest 1V portable [id number] Date/Time of Exam: 09/22/2021 12:39 PM Reason For Exam: dyspnea/cough Comparison 05/01/2015. Patchy infiltrates seen in the right lower lung zone and possibly the lingula. The heart is enlarged. Small right-sided pleural effusion is noted. No pneumothorax. Signs of median sternotomy and cardia c valve replacement. Operative fusion of the left glenohumeral joint. XR/XR chest 1V portable [id number] IMPRESSION: 1. Infiltrate in the right lower lobe and possibly the lingula. 2. Cardiac enlargement with increased pulmonary vascularity and small right ple ural effusion. Some degree of superimposed congestive heart failure is consider ed likely.
[2021-09-22 13:28] VITALS: BP 150/59; PULSE 80; PULSE 84; RESP 25; O2SAT 91; O2SAT 94
[2021-09-22 13:32] LABS: Basophils % 0.4 %; Eosinophils % 0.4 %; Hematocrit 33.5 % (37.0-47.0); Lymphocytes # 0.4 10^3/uL (0.8-4.8); Mean Corpuscular HGB Conc 29.9 g/dL (30.0-36.0); Mean Corpuscular Hemoglobin 29.6 pg (28.0-34.0); Mean Corpuscular Volume 99.1 fl (81-99); Mean Platelet Volume 9.6 fL (7.4-10.4); Monocytes # 0.4 10^3/uL (0.2-0.9); Monocytes % 6.4 %; Neutrophils # 5.82 10^3/uL (1.8-7.7); Neutrophils % 86.7 %; Nucleated Red Blood Cells % 0 %; Platelet Count 265 10^3/cmm (130-400); Red Blood Count 3.38 10^6/uL (4.1-5.3); Red Cell Distribution Width 14.4 % (12.1-15.1); White Blood Count 6.7 10^3/uL (4.0-10.0)
[2021-09-22] MEDS: sodium chloride 0.9% 1,000 ML 999 ML IV (13:44)
--- NOTE | 2021-09-22 13:53 | W.ED.FALL ---
HPI - Fall General: Chief Complaint: Fall Stated Complaint: FALL Time Seen by Provider: 09/22/21 12:29 History of Present Illness: HPI Narrative: 71-year-old female who lives at home with little assistance from home health and some family stop by at various times during the week. She fell and was wedged between the toilet and encounter for an hour or 2 this morning. She is previously had polio and is not able to ambulate without assistance. She states she cannot really bear weight on either of her legs. She needs total assistance for moving she will sometimes slide herself on the ground. She has been living like this for a number of years. She is on anticoagulants. She denies striking her head or losing consciousness. She has been somewhat constipated. 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) Location of injury: other (Right knee) Associated symptoms-after fall: Denies abdominal pain, chest pain, confusion, difficulty walking, headache(s), hematuria, lightheadedness, neck pain, numbness, short of breath, vertigo or weakness Review of Systems Const: Denies: fever(s), chills, body aches, change in appetite, fatigue or malaise ENMT: Denies: throat pain, ear or mastoid pain, nasal discharge or nasal congestion Card: Denies: chest pain or lightheadedness Resp: Denies: dyspnea, productive cough or non-productive cough GI: Denies: abdominal pain : Denies: hematuria Musc: Denies: neck pain Skin/Breast: Denies: rash or pruritus Neuro: Denies: headache(s), difficulty walking, vertigo or confusion PFSH ED PFSH: Medical History Atrial flutter Diabetes Essential hypertension Hyperlipidemia Polio osteopathy of lower leg Surgical History H/O aortic valve replacement History of aortic valve replacement with bioprosthetic valve bovine valve 10/13/2013 at [facility] History of cholecystectomy History of eye surgery History of foot surgery History of shoulder surgery History of surgery on arm Family History Mother CAD (coronary artery disease) Social History Smoking and tobacco status: never smoked Alcohol intake: never Lives independently: Yes Household members: none Housing: House Additional social history: Has home health care, electric wheelchair Physical Exam Const: COMMON NORMALS: no acute distress GENERAL APPEARANCE: cooperative and comfortable ORIENTATION/CONSCIOUSNESS: Yes awake, Yes oriented to person, Yes oriented to place and Yes oriented to time HENMT: COMMON NORMALS: normocephalic, atraumatic and hearing grossly normal bilaterally HEAD & SCALP: normocephalic and atraumatic Resp: COMMON NORMALS: normal respiratory effort, No retractions, No use of accessory muscles and clear to auscultation bilaterally AUSCULTATION: clear to auscultation bilaterally Cardio: COMMON NORMALS: regular rate, regular rhythm and No murmurs present (Cardio) RATE: regular rate RHYTHM: regular rhythm GI: COMMON NORMALS: Soft to palpation and No hepatosplenomegaly present AUSCULTATION: Yes normoactive bowel sounds PALPATION: Yes Soft to palpation, No Tenderness to palpation present (GI), No Guarding due to palpation present (GI) and Yes No hepatosplenomegaly present Extremity: COMMON NORMALS: normal to inspection, capillary refill normal, no clubbing, cyanosis or edema, no calf tenderness and no pedal edema Neuro: SENSORIUM/ORIENTATION: Yes oriented to person, Yes oriented to place and Yes oriented to time Skin: COMMON NORMALS: no rashes or lesions noted GENERAL SKIN EXAM: no rashes or lesions noted Course Vital Signs: Vital signs: Vital Signs Temperature 97.8 F 09/22/21 12:08 Pulse Rate 87 09/22/21 20:27 Respiratory Rate 18 09/22/21 20:27 Blood Pressure 148/79 09/22/21 20:27 Pulse Oximetry 96 09/22/21 20:27 MDM - Fall MDM Narrative: Medical decision making narrative: Labs and imaging reviewed with the patient. She is feeling better she does have some increased swelling started on Lasix 20 mg daily we discussed admission versus going home. She would prefer to go home. I think she would be better off being admitted to the hospital with a plan need to look for better long-term care. She prefers to continue to stay at home.Encourage patient to return if she has any further problems. Lab Data: Labs: Lab Results 09/22/21 09/22/21 09/22/21 13:20 13:20 13:20 WBC 6.7 10^3/uL 10^3/ uL (4.0-10.0) RBC 3.38 10^6/uL L 10 ^6/uL (4.1-5.3) Hgb 10.0 g/dL L g/dL (11.5-15.3) Hct 33.5 % L % (37.0-47.0) MCV 99.1 fl H fl (81-99) MCH 29.6 pg pg (28.0-34.0) MCHC 29.9 g/dL L g/dL (30.0-36.0) RDW 14.4 % % (12.1-15.1) Plt Count 265 10^3/cmm 10^3 /cmm (130-400) MPV 9.6 fL fL (7.4-10.4) Neut % (Auto) 86.7 % % Lymph % (Auto) 6.0 % % Gonzales % (Auto) 6.4 % % Eos % (Auto) 0.4 % % Baso % (Auto) 0.4 % % Neut # (Auto) 5.82 10^3/uL 10^3 /uL (1.8-7.7) Lymph # (Auto) 0.4 10^3/uL L 10^ 3/uL (0.8-4.8) Gonzales # (Auto) 0.4 10^3/uL 10^3/ uL (0.2-0.9) Eos # (Auto) 0.0 10^3/uL 10^3/ uL (0.0-0.8) Baso # (Auto) 0.0 10^3/uL 10^3/ uL (0.0-0.1) Nucleated RBC % (a uto) 0 % % Nucleated RBCs # 0.0 /100WBC /100W BC Sodium 139 mmol/L mmol/L (136-145) Potassium 3.8 mmol/L mmol/L (3.5-5.1) Chloride 106 mmol/L mmol/L (98-107) Carbon Dioxide 23 mmol/L mmol/L (22-29) Anion Gap 13.8 (5-19) BUN 18 mg/dL mg/dL (8-23) Creatinine 0.4 mg/dL L mg/dL (0.5-0.9) GFR Calculation Not Reportable Glucose 156 mg/dL H mg/dL (65-115) Calculated Osmolal ity 293 mOsm/kg mOsm/ kg (285-295) Lactic Acid 0.8 mmol/L mmol/L (0.5-2.2) Calcium 8.6 mg/dL mg/dL (8.5-10.5) Magnesium 1.6 mg/dL L mg/dL (1.7-2.3) Total Bilirubin 0.5 mg/dL mg/dL (0.15-1.2) AST 25 U/L U/L (0-32) ALT 13 U/L U/L (0-33) Alkaline Phosphata se 48 IU/L IU/L (35-105) Creatine Kinase 164 U/L U/L (26-192) Troponin T Baselin e Troponin T 120 Min [place] Delta Troponin T Troponin T Hi Sens 6Hr Troponin T Hi Sens 6Hr Delta Total Protein 6.0 g/dL L g/dL (6.6-8.7) Albumin 4.2 g/dL g/dL (3.5-5.2) Globulin 1.8 g/dL g/dL (1.3-4.6) Lipase 20 U/L U/L (13-60) Urine Color Urine Appearance Urine pH Ur Specific Gravit y Urine Protein Urine Glucose (UA) Urine Ketones Urine Blood Urine Nitrate Urine Bilirubin Urine Urobilinogen Ur Leukocyte Lindsay ase Urine RBC Urine WBC Ur Squamous Epith Cells Amorphous Sediment Urine Bacteria 09/22/21 09/22/21 09/22/21 13:20 13:20 15:26 WBC RBC Hgb Hct MCV MCH MCHC RDW Plt Count MPV Neut % (Auto) Lymph % (Auto) Gonzales % (Auto) Eos % (Auto) Baso % (Auto) Neut # (Auto) Lymph # (Auto) Gonzales # (Auto) Eos # (Auto) Baso # (Auto) Nucleated RBC % (a uto) Nucleated RBCs # Sodium Potassium Chloride Carbon Dioxide Anion Gap BUN Creatinine GFR Calculation Glucose Calculated Osmolal ity Lactic Acid Calcium Magnesium Total Bilirubin AST ALT Alkaline Phosphata se Creatine Kinase Troponin T Baselin e 31 ng/L H ng/L (0-10) Troponin T 120 Min [place] 29.44 ng/L H ng/L (0-10) Delta Troponin T -1.56 ABS# L ABS# (0-10) Troponin T Hi Sens 6Hr Troponin T Hi Sens 6Hr Delta Total Protein Albumin Globulin Lipase Urine Color Yellow (Yellow) Urine Appearance Cloudy (CLEAR) Urine pH 7 (5-7) Ur Specific Gravit y 1.010 (1.005-1.030) Urine Protein Neg (Negative) Urine Glucose (UA) Norm (Normal) Urine Ketones Negative (Negative) Urine Blood Neg (Negative) Urine Nitrate Negative (Negative) Urine Bilirubin Neg (Negative) Urine Urobilinogen Norm mg/dL mg/dL (Negative) Ur Leukocyte Lindsay ase 2+ H (Negative) Urine RBC None /hpf /hpf (0-2) Urine WBC 10-15 /hpf H /hpf (0-5) Ur Squamous Epith Cells 5-10 /hpf H /hpf (0-5) Amorphous Sediment Not Reportable Urine Bacteria 3+ /hpf H /hpf (NONE) 09/22/21 19:14 WBC RBC Hgb Hct MCV MCH MCHC RDW Plt Count MPV Neut % (Auto) Lymph % (Auto) Gonzales % (Auto) Eos % (Auto) Baso % (Auto) Neut # (Auto) Lymph # (Auto) Gonzales # (Auto) Eos # (Auto) Baso # (Auto) Nucleated RBC % (a uto) Nucleated RBCs # Sodium Potassium Chloride Carbon Dioxide Anion Gap BUN Creatinine GFR Calculation Glucose Calculated Osmolal ity Lactic Acid Calcium Magnesium Total Bilirubin AST ALT Alkaline Phosphata se Creatine Kinase Troponin T Baselin e Troponin T 120 Min [place] Troponin T Troponin T Hi Sens 6Hr 38.25 ng/L H ng/L (0-10) Troponin T Hi Sens 6Hr Delta 7.25 ng/L ng/L (0-12) Total Protein Albumin Globulin Lipase Urine Color Urine Appearance Urine pH Ur Specific Gravit y Urine Protein Urine Glucose (UA) Urine Ketones Urine Blood Urine Nitrate Urine Bilirubin Urine Urobilinogen Ur Leukocyte Lindsay ase Urine RBC Urine WBC Ur Squamous Epith Cells Amorphous Sediment Urine Bacteria Discharge Plan Discharge Patient Disposition: Home Clinical Impression: Post-polio syndrome, Essential hypertension, H/O aortic valve replacement, Diabetes, Fall, CHF (congestive heart failure) Condition: Stable Prescriptions: New Lasix 20 mg tablet 20 mg PO DAILY Qty: 30 RF: 0 No Action ibuprofen 600 mg tablet 600 mg PO TID PRN (Reason: pain) RF: 0 metformin 1,000 mg tablet 1,000 mg PO BID Qty: 60 RF: 0 amiodarone 200 mg tablet 200 mg PO DAILY 90 Days Qty: 90 RF: 3 Eliquis 5 mg tablet 5 mg PO BID Qty: 180 RF: 3 lisinopril 20 mg tablet 20 mg PO BID Qty: 180 RF: 3 multivitamin [Multiple Vitamins] Tablet 1 tab PO DAILY RF: 0 magnesium oxide 400 mg (241.3 mg magnesium) Tablet 400 mg PO BID RF: 0 omeprazole 20 mg Capsule,Delayed Release(Dr/Ec) 20 mg PO DAILY RF: 0 fenofibrate nanocrystallized [Tricor] 145 mg Tablet 145 mg PO BEDTIME RF: 0 ferrous gluconate 324 mg (38 mg iron) Tablet 324 mg PO DAILY RF: 0 Vitamin D3 1 cap PO DAILY RF: 0 aspirin [Adult Aspirin Regimen] 81 mg tablet,delayed release (DR/EC) 81 mg PO DAILY RF: 0 Vitamin C 500 mg Tablet 500 mg PO DAILY RF: 0 nitroglycerin 0.4 mg Tablet, Sublingual 0.4 mg SUBLINGUAL Q5M PRN (Reason: Chest Pain) RF: 0 PreserVision AREDS [id number] [id number] Capsule 1 cap PO BID RF: 0 amlodipine 10 mg tablet 10 mg PO DAILY RF: 0 metoprolol tartrate 25 mg tablet 25 mg PO BID RF: 0 Levemir FlexTouch U-100 Insuln 100 unit/mL (3 mL) Insulin Pen See Rx Instructions .ROUTE .COMPLEX Qty: 0 RF: 0 Discharge Orders: Discharge ED (Routine); Ordered 09/22/21 Ordered By: Natalio Lane Referrals: John Suarez [Primary Care Provider] - Discharge Diet: Usual diet Discharge Activity: Resume usual activity Patient Instructions: Opioid Safety Activity Restrictions/Additional Instructions: Follow-up with your primary care doctor within a week. Coding Level of Care Code ED Diamond Finishing Supervisor for Chg Fwd Exam Detailed
[2021-09-22 13:55] LABS: Alanine Aminotransferase 13 U/L (0-33); Albumin Level 4.2 g/dL (3.5-5.2); Alkaline Phosphatase 48 IU/L (35-105); Anion Gap 13.8 (5-19); Aspartate Amino Transferase 25 U/L (0-32); Blood Urea Nitrogen 18 mg/dL (8-23); Calcium 8.6 mg/dL (8.5-10.5); Carbon Dioxide 23 mmol/L (22-29); Chloride 106 mmol/L (98-107); Creatine Phosphokinase 164 U/L (26-192); Globulin 1.8 g/dL (1.3-4.6); Glucose 156 mg/dL (65-115); Lipase 20 U/L (13-60); Magnesium 1.6 mg/dL (1.7-2.3); Osmolality Calculated 293 mOsm/kg (285-295); Potassium 3.8 mmol/L (3.5-5.1); Sodium 139 mmol/L (136-145); Total Bilirubin 0.5 mg/dL (0.15-1.2)
[2021-09-22 13:57] LABS: Lactic Sepsis W/Reflex 0.8 mmol/L (0.5-2.2); Troponin(5th) Baseline 31 ng/L (0-10)
--- NOTE | 2021-09-22 14:35 | ECG_ITS ---
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 Measurements Intervals [place] Rate: 84 P: 41 WY: 227 QRS: -1 QRSD: 100 T: 56 QT: 393 QTc: 467 Interpretive Statements SINUS RHYTHM WITH FIRST DEGREE AV BLOCK Compared to ECG 09/22/2021 13:16:16 First degree AV block now present Electronically Signed On 09-23-2021 7:45:22 HOSPITAL LIBRARIAN by Rizwan Cheng M.D. [id number] f
[2021-09-22 14:48] LABS: Urine Appearance Cloudy (CLEAR); Urine Color Yellow (Yellow); pH Urine 7 (5-7)
[2021-09-22 14:49] LABS: Add Urine Culture? Yes; Add Urine Microscopic? YES; Bacteria Urine 3+ /hpf; Bilirubin Urine Neg (Negative); Blood Urine Neg (Negative); Glucose Urine UA Norm (Normal); Ketones Urine Negative (Negative); Leukocyte Esterase Urine 2+ (Negative); Nitrate Urine Negative (Negative); Protein Urine Neg (Negative); Urobilinogen Urine Norm (Negative)
[2021-09-22] MEDS: FUROsemide 10 mg/mL SDV 4mL 40 MG IVP (15:32)
[2021-09-22 15:51] LABS: Troponin 5 2HR 29.44 ng/L (0-10)
[2021-09-22 15:52] LABS: Troponin 5 2HR Delta -1.56 ABS# (0-10)
[2021-09-22 17:30] VITALS: BP 96/65; PULSE 65; RESP 16; O2SAT 94
--- NOTE | 2021-09-22 17:38 | PC.NURSE ---
This RN spoke with Dr. Lane, pt states she is incontinent of bladder adn throughout the day has been having a difficult time with frequent need of bedpan. Dr. Lane gave verbal order to place salgado cath for pt to discharge home with.
[2021-09-22 18:00] VITALS: BP 136/70; PULSE 87; RESP 37; O2SAT 92
[2021-09-22 19:35] LABS: Troponin 5 6HR 38.25 ng/L (0-10); Troponin 5 6HR Delta 7.25 ng/L (0-12)
[2021-09-22 20:22] VITALS: BP 148/79; PULSE 88; O2SAT 90
[2021-09-22 20:27] VITALS: BP 148/79; PULSE 87; RESP 18; O2SAT 96
== END 2021-09-22 20:33 | disposition home or self-care (01) ==
PROVIDERS: Emergency Provider Family Medicine; PCP Physician Assistant Medical
DX: G14 Postpolio syndrome (principal); I11.0 Hypertensive heart disease with heart failure; I50.9 Heart failure, unspecified; E11.9 Type 2 diabetes mellitus without complications; Z95.2 Presence of prosthetic heart valve; Z79.01 Long term (current) use of anticoagulants; Z79.84 Long term (current) use of oral hypoglycemic drugs; Z79.4 Long term (current) use of insulin; E78.5 Hyperlipidemia, unspecified
CPT/HCPCS: 70450; 71045; 73562; 80053; 81001; 82550; 83605; 83690; 83735; 84484; 85025; 87077; 87086; 87186; 93005; 96361; 96374; 99284; J1940; J7030

== ENCOUNTER 2023-06-21 23:14 | Inpatient (IN) | payer MEDICARE, MEDICAID, SELFPAY ==
[2023-06-21 23:15] VITALS: BP 182/79; PULSE 68; RESP 29; TEMP 36.3; O2SAT 97
--- NOTE | 2023-06-21 23:22 | ECG_ITS ---
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 Measurements Intervals [place] Rate: 67 P: 0 DC: 0 QRS: -39 QRSD: 102 T: 33 QT: 404 QTc: 427 Interpretive Statements SINUS RHYTHM WITH HIGH GRADE AV BLOCK LEFT AXIS DEVIATION [QRS AXIS < -30] S1-S2-S3 PATTERN, CONSISTENT WITH PULMONARY DISEASE, RVH, OR NORMAL VARIANT MODERATE ST DEPRESSION [0.05+ mV ST DEPRESSION] CRITICAL TEST RESULT Compared to ECG 09/22/2021 14:58:38 Left-axis deviation now present Right ventricular hypertrophy now present ST (T wave) deviation now present First degree AV block no longer present Electronically Signed On 06-22-2023 13:58:20 CDT by Donald Alba M.D. [id number] f
--- NOTE | 2023-06-21 23:30 | XRR_ITS ---
PROCEDURE INFORMATION: Exam: XR Chest Exam date and time: 06/21/2023 11:50 PM Age: 73 years old Clinical indication: Shortness of breath; Prior surgery; Surgery date: 6+ months; Surgery type: Aortic valve replacement. Gb; Patient HX: C/O SOB TECHNIQUE: Imaging protocol: Radiologic exam of the chest. Views: 1 view. COMPARISON: CR XR chest 1V portable [id number] 09/22/2021 12:42 PM FINDINGS: Lungs: Pulmonary venous congestion and bilateral infiltrates noted. Findings are suggestive of fluid overload/CHF. Pleural spaces: Small bilateral pleural effusions. No pneumothorax. Heart/Mediastinum: Prosthetic heart valve noted. Cardiomegaly is present. Vasculature: The thoracic aorta is atherosclerotic. Bones/joints: Median sternotomy noted. Soft tissues: Soft tissue calcifications are noted right axilla. XR/XR chest 1V portable [id number] IMPRESSION: 1. Cardiomegaly is present. 2. Pulmonary venous congestion and bilateral infiltrates noted. Findings are suggestive of fluid overload/CHF. This appears more severe compared to prior XR chest 09/22/2021. 3. Small bilateral pleural effusions. These effusions have increased in size when compared to 09/22/2021.
[2023-06-21 23:45] LABS: ABG PCO2 41.8 mmHg (35-45); ABG PH Result 7.43 (7.35-7.45); Arterial Blood Gas Hematocrit 31.8 % (37-47); Blood Gas Allen Test Pos; Blood Gas Sample Site Radial, right; Blood Gas Sample Type Arterial; Carboxyhemoglobin 1.1 %THgb (0.4-20.1); HCO3 ABG 27.7 mmol/L (22-26); HGB O2 Sat 95.3 % (95-100); Methemoglobin 0.5 % (0.4-1.5); PO2 ABG 92.3 mmHg (80.0-100.0); Total Hemoglobin 10.4 g/dL (12-16)
[2023-06-22] VITALS (148 sets, daily range): BP systolic 125–171; BP diastolic 50–101; PULSE 43–164; RESP 16–30; TEMP 36.6–36.9; O2SAT 89–100
[2023-06-22 00:09] LABS: Basophils % 0.6 %; Eosinophils # 0.1 10^3/uL (0.0-0.8); Eosinophils % 1.5 %; Hematocrit 33.2 % (36-47); Lymphocytes # 0.9 10^3/uL (0.8-4.8); Lymphocytes % 17.9 %; Mean Corpuscular Hemoglobin 30.4 pg (27-33); Mean Corpuscular Volume 97.9 fl (85-98); Mean Platelet Volume 9.7 fL (7.4-10.4); Monocytes # 0.4 10^3/uL (0.2-0.9); Monocytes % 7.7 %; Neutrophils # 3.75 10^3/uL (1.8-7.7); Neutrophils % 72.1 %; Nucleated Red Blood Cells % 0 %; Platelet Count 242 10^3/cmm (157-399); Red Blood Count 3.39 10^6/uL (3.85-5.65); Red Cell Distribution Width 15.7 % (12.1-15.1)
[2023-06-22 00:12] LABS: Oxygen Device NC
[2023-06-22 00:13] LABS: INR 1.23 (0.8-1.2)
[2023-06-22 00:21] LABS: Lactic Sepsis W/Reflex 3.1 mmol/L (0.5-2.2)
[2023-06-22 00:27] LABS: Troponin(5th) Baseline 37 ng/L (0-10)
[2023-06-22 00:33] LABS: Alanine Aminotransferase 11 U/L (0-33); Albumin Level 4.1 g/dL (3.5-5.2); Alkaline Phosphatase 73 U/L (35-105); Anion Gap 16.1 (5-19); Aspartate Amino Transferase 23 U/L (0-32); Blood Urea Nitrogen 21 mg/dL (8-23); Calcium 9.5 mg/dL (8.5-10.5); Carbon Dioxide 28 mmol/L (22-29); Chloride 103 mmol/L (98-107); Globulin 1.9 g/dL (1.3-4.6); Glucose 208 mg/dL (65-115); Magnesium 1.5 mg/dL (1.7-2.3); NT Pro B Type Natriuretic Pept 17360 pg/mL (0-450); Osmolality Calculated 305 mOsm/kg (285-295); Potassium 4.1 mmol/L (3.5-5.1); Sodium 143 mmol/L (136-145); Total Bilirubin 0.4 mg/dL (0.15-1.2)
[2023-06-22] MEDS: FUROsemide 10 mg/mL SDV 4mL 40 MG IVP ×4 (00:51→21:16)
--- NOTE | 2023-06-22 01:30 | ECG_ITS ---
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 Measurements Intervals [place] Rate: 64 P: 211 NE: 165 QRS: -43 QRSD: 106 T: 20 QT: 428 QTc: 443 Interpretive Statements SINUS RHYTHM LEFT AXIS DEVIATION [QRS AXIS < -30] Compared to ECG 06/21/2023 23:22:58 Right ventricular hypertrophy no longer present ST (T wave) deviation no longer present Electronically Signed On 06-22-2023 14:02:13 CDT by Donald Alba M.D. [id number] f
[2023-06-22 01:39] LABS: SARS Covid-2 Antigen negative (Negative)
--- NOTE | 2023-06-22 01:39 | W.ED.SOB ---
HPI - SOB/Dyspnea General: Chief Complaint: Shortness of Breath/Dyspnea Stated Complaint: SOB Time Seen by Provider: 06/21/23 23:22 History of Present Illness: HPI Narrative: 73-year-old female with a history of diastolic heart dysfunction. She also has a history of atrial fibrillation/flutter and aortic valve replacement. She presents with worsening shortness of breath over a couple of days with acute significant worsening of shortness of breath. She does not use oxygen at home, but was found to be quite hypoxic by EMS on their arrival with a pulse ox of 80% and in respiratory distress. She was given IV Lasix in route, she was placed on CPAP in route, with improvement in oxygenation. She was quite hypertensive on their arrival as well, this is improved significantly. She was given nitroglycerin sublingual tabs x6 by EMS, followed by 1 inch of nitroglycerin paste. She never complained of chest pain. She denies fever, significant cough, or sputum production. MD elicited complaint: shortness of breath Associated symptoms: Deny abdominal pain, chest pain, fever(s), nausea, palpitations or vomiting Related Data: Home oxygen amount: none Review of Systems Const: Denies: fever(s) Card: Denies: chest pain or palpitations Resp: Reports: dyspnea and non-productive cough; Denies: productive cough GI: Denies: abdominal pain, nausea, vomiting or hematemesis PFSH ED PFSH: Medical History Atrial flutter Diabetes Essential hypertension Hyperlipidemia Polio osteopathy of lower leg Surgical History H/O aortic valve replacement History of aortic valve replacement with bioprosthetic valve bovine valve 10/13/2013 at [facility] History of cholecystectomy History of eye surgery History of foot surgery History of shoulder surgery History of surgery on arm Family History Mother CAD (coronary artery disease) Social History Smoking and tobacco status: never smoked Alcohol intake: never Substance/Drug Use: never Lives independently: Yes Household members: none Housing: House Additional social history: Has home health care, electric wheelchair Physical Exam Const: GENERAL APPEARANCE: cooperative, ill appearing and frail appearing HENMT: COMMON NORMALS: normocephalic and Normal external nose present HEAD & SCALP: normocephalic NOSE: Normal external nose present Eye: COMMON NORMALS: Equal, round and reactive pupils present and EOMs intact bilaterally PUPIL: Yes Equal, round and reactive pupils present Neck/C-Spine: GENERAL: Yes trachea midline Chest: CHEST: Yes Symmetrical chest wall rise Resp: EFFORT & INSPECTION: Yes tachypneic and No respiratory distress AUSCULTATION: rales and diminished lung sounds Cardio: COMMON NORMALS: regular rate and regular rhythm RATE: regular rate RHYTHM: regular rhythm GI: COMMON NORMALS: Normal to inspection, nondistended, normoactive bowel sounds present Course Vital Signs: Vital signs: Vital Signs Temperature 97.3 F L 06/21/23 23:15 Pulse Rate 66 06/22/23 00:58 Respiratory Rate 23 H 06/22/23 00:58 Blood Pressure 133/86 06/22/23 00:58 Pulse Oximetry 98 06/22/23 00:58 Oxygen Delivery Me thod CPAP 06/21/23 23:15 MDM - SOB/Dyspnea Medical Decision Making 73-year-old female with a history of diastolic dysfunction. She presents acutely short of breath. Chest x-ray shows pulmonary edema with small effusions. BNP is 17,000. Hemoglobin is 10, which is normal for her. Creatinine is normal at 0.3. She does not normally use oxygen at this point, though, she is on 3 L. She still mildly tachypneic. She has had 80 mg of Lasix total, and has saturated 2 briefs. With significant edema on chest x-ray and oxygen dependency, she will be admitted. Lab Data 06/21/23 23:48 06/21/23 23:48 Labs/Radiology: Radiology Impressions Chest X-Ray 06/21/23 23:30 IMPRESSION: 1. Cardiomegaly is present. 2. Pulmonary venous congestion and bilateral infiltrates noted. Findings are suggestive of fluid overload/CHF. This appears more severe compared to prior XR chest 09/22/2021. 3. Small bilateral pleural effusions. These effusions have increased in size when compared to 09/22/2021. Laboratory Results WBC 5.20 10^3/uL (3.29-11.43) 06/21/23 23:48 RBC 3.39 10^6/uL (3.85-5.65) L 06/21/23 23:48 Hgb 10.30 g/dL (11.27-16.99) L 06/21/23 23:48 Hct 33.2 % (36-47) L 06/21/23 23:48 MCV 97.9 fl (85-98) 06/21/23 23:48 MCH 30.4 pg (27-33) 06/21/23 23:48 MCHC 31.0 g/dL (30-55) 06/21/23 23:48 RDW 15.7 % (12.1-15.1) H 06/21/23 23:48 Plt Count 242 10^3/cmm (157-399) 06/21/23 23:48 MPV 9.7 fL (7.4-10.4) 06/21/23 23:48 Neut % (Auto) 72.1 % 06/21/23 23:48 Lymph % (Auto) 17.9 % 06/21/23 23:48 Dent % (Auto) 7.7 % 06/21/23 23:48 Eos % (Auto) 1.5 % 06/21/23 23:48 Baso % (Auto) 0.6 % 06/21/23 23:48 Neut # (Auto) 3.75 10^3/uL (1.8-7.7) 06/21/23 23:48 Lymph # (Auto) 0.9 10^3/uL (0.8-4.8) 06/21/23 23:48 Dent # (Auto) 0.4 10^3/uL (0.2-0.9) 06/21/23 23:48 Eos # (Auto) 0.1 10^3/uL (0.0-0.8) 06/21/23 23:48 Baso # (Auto) 0.0 10^3/uL (0.0-0.1) 06/21/23 23:48 Nucleated RBC % (auto) 0 % 06/21/23 23:48 Nucleated RBCs # 0.0 /100WBC 06/21/23 23:48 PT 15.90 SECONDS (12.1-14.9) H 06/21/23 23:48 INR 1.23 (0.8-1.2) H 06/21/23 23:48 Specimen Type Arterial 06/21/23 23:35 Sample Site Radial, right 06/21/23 23:35 ABG pH 7.43 (7.35-7.45) 06/21/23 23:35 ABG pCO2 41.8 mmHg (35-45) 06/21/23 23:35 ABG pO2 92.3 mmHg (80.0-100.0) 06/21/23 23:35 ABG HCO3 27.7 mmol/L (22-26) H 06/21/23 23:35 ABG Base Excess 3.0 mmol/L (-2.0-2.0) H 06/21/23 23:35 Abdullahi Test Pos 06/21/23 23:35 Hematocrit 31.8 % (37-47) L 06/21/23 23:35 Hgb O2 Saturation 95.3 % (95-100) 06/21/23 23:35 Carboxyhemoglobin 1.1 %THgb (0.4-20.1) 06/21/23 23:35 Methemoglobin 0.5 % (0.4-1.5) 06/21/23 23:35 Total Hemoglobin 10.4 g/dL (12-16) L 06/21/23 23:35 O2 Delivery Device Nc 06/21/23 23:35 FiO2 40.0 % 06/21/23 23:35 CPAP 10.0 cmH20 06/21/23 23:35 Van Owner Operator ID [email or web address] 06/21/23 23:35 Sodium 143 mmol/L (136-145) 06/21/23 23:48 Potassium 4.1 mmol/L (3.5-5.1) 06/21/23 23:48 Chloride 103 mmol/L (98-107) 06/21/23 23:48 Carbon Dioxide 28 mmol/L (22-29) 06/21/23 23:48 Anion Gap 16.1 (5-19) 06/21/23 23:48 BUN 21 mg/dL (8-23) 06/21/23 23:48 Creatinine 0.3 mg/dL (0.5-0.9) L 06/21/23 23:48 GFR Calculation Not Reportable 06/21/23 23:48 Glucose 208 mg/dL (65-115) H 06/21/23 23:48 Calculated Osmolality 305 mOsm/kg (285-295) H 06/21/23 23:48 Lactic Acid 3.1 mmol/L (0.5-2.2) H 06/21/23 23:48 Calcium 9.5 mg/dL (8.5-10.5) 06/21/23 23:48 Magnesium 1.5 mg/dL (1.7-2.3) L 06/21/23 23:48 Total Bilirubin 0.4 mg/dL (0.15-1.2) 06/21/23 23:48 AST 23 U/L (0-32) 06/21/23 23:48 ALT 11 U/L (0-33) 06/21/23 23:48 Alkaline Phosphatase 73 U/L (35-105) 06/21/23 23:48 Troponin T Baseline 37 ng/L (0-10) H 06/21/23 23:48 NT-Pro-B Natriuret Pep 98978 pg/mL (0-450) H 06/21/23 23:48 Total Protein 6.0 g/dL (6.6-8.7) L 06/21/23 23:48 Albumin 4.1 g/dL (3.5-5.2) 06/21/23 23:48 Globulin 1.9 g/dL (1.3-4.6) 06/21/23 23:48 SARS-CoV-2 Ag (Rapid) negative (Negative) 06/22/23 01:20 Critical Care Time Critical Care Time: Critical Care Time: Yes Total Critical Care Time: 35 Attestation: This case had a high probability of a clinically significant, sudden, or life threatening deterioration of this patient's condition which required my full and direct attention, intervention and personal management. Time is independent of any procedures performed. Discharge Plan Discharge Patient Disposition: Admitted As Inpatient Clinical Impression: Pulmonary edema, Acute respiratory failure with hypoxia Condition: Fair Prescriptions: No Action ibuprofen 600 mg tablet 600 mg PO TID PRN (Reason: pain) metformin 1,000 mg tablet 1,000 mg PO BID Qty: 60 0RF amiodarone 200 mg tablet 200 mg PO DAILY 90 Days Qty: 30 0RF Rx Instructions: Make follow-up for further refills. Eliquis 5 mg tablet 5 mg PO BID Qty: 30 0RF Rx Instructions: MUST make follow-up for further refills lisinopril 20 mg tablet 20 mg PO BID Qty: 60 0RF Rx Instructions: MUST have follow-up with new provider for further refills multivitamin [Multiple Vitamins] Tablet 1 tab PO DAILY magnesium oxide 400 mg (241.3 mg magnesium) Tablet 400 mg PO BID omeprazole 20 mg Capsule,Delayed Release(Dr/Ec) 20 mg PO DAILY fenofibrate nanocrystallized [Tricor] 145 mg Tablet 145 mg PO BEDTIME ferrous gluconate 324 mg (38 mg iron) Tablet 324 mg PO DAILY Vitamin D3 1 cap PO DAILY aspirin [Adult Aspirin Regimen] 81 mg tablet,delayed release (DR/EC) 81 mg PO DAILY Lasix 20 mg tablet 20 mg PO DAILY Qty: 30 0RF Vitamin C 500 mg Tablet 500 mg PO DAILY nitroglycerin 0.4 mg Tablet, Sublingual 0.4 mg SUBLINGUAL Q5M PRN (Reason: Chest Pain) PreserVision AREDS 14,[id number] [id number] Capsule 1 cap PO BID amlodipine 10 mg tablet 10 mg PO DAILY metoprolol tartrate 25 mg tablet 25 mg PO BID Levemir FlexTouch U100 Insulin 100 unit/mL (3 mL) Insulin Pen See Rx Instructions .ROUTE .COMPLEX Qty: 0 0RF Rx Instructions: 10 units subcutaneously q am and 20 units at night Referrals: Lillian Locke [Primary Care Provider] - Coding Level of Care Code ED Business Process Lead for Ashley Chavira
[2023-06-22 01:45] LABS: Reflex Lactate Order REFLEX LACTIC ORDERD
--- NOTE | 2023-06-22 02:07 | PM.HP ---
Providers/Chief Complaint Primary Care Provider: Lillian Locke Chief Complaint: SOB History of Present Illness Renae Padilla is a 73 year old female with history of postpolio syndrome atrial fibrillation CHF hyperlipidemia hypertension GERD presented with complaint of acute shortness of breath since this afternoon. Found is found to have oxygen saturation of 80% on room air systolic blood pressure of 190s but denies any fever cold cough chest pain abdominal pain nausea vomiting or urinary complaints. In the ER she was placed on 3 L nasal cannula and saturating 95%. Also found to have a BNP of 17,000 and chest x-ray consistent with vascular congestion/pulmonary edema. Last 2D echo was done in 2020 showed EF of 65% and grade 3-4 diastolic dysfunction. Review of Systems Narrative: As per HPI Medications/Allergies Home Medications Medication Instructions Recorded Confirmed Last Taken Type Vitamin D3 1 cap PO DAILY 11/11/19 07/04/21 06/14/21 History aspirin 81 mg tablet,delayed 81 mg PO DAILY SEE PHARMACY COMMENT 11/11/19 07/04/21 06/14/21 History release (Adult Aspirin Regimen) fenofibrate nanocrystallized 145 145 mg PO BEDTIME 11/11/19 07/04/21 06/14/21 History mg tablet (Tricor) ferrous gluconate 324 mg (38 mg 324 mg PO DAILY 11/11/19 07/04/21 06/14/21 History iron) tablet magnesium oxide 400 mg (241.3 mg 400 mg PO BID 11/11/19 07/04/21 06/14/21 History magnesium) tablet multivitamin (Multiple Vitamins 1 tab PO DAILY 11/11/19 07/04/21 06/14/21 History tablet) omeprazole 20 mg capsule,delayed 20 mg PO DAILY 11/11/19 07/04/21 06/14/21 History release ibuprofen 600 mg tablet 600 mg PO TID PRN pain 03/23/20 07/04/21 Unknown History metformin 1,000 mg tablet 1,000 mg PO BID #60 tabs 04/25/20 07/04/21 06/14/21 Rx amlodipine 10 mg tablet 10 mg PO DAILY SEE PHARMACY COMMENT 06/16/21 07/04/21 Unknown History ascorbic acid (vitamin C) 500 mg 500 mg PO DAILY 06/16/21 07/04/21 06/14/21 History tablet (Vitamin C) metoprolol tartrate 25 mg tablet 25 mg PO BID 06/16/21 07/04/21 06/14/21 History nitroglycerin 0.4 mg sublingual 0.4 mg sublingual Q5M PRN Chest 06/16/21 07/04/21 Unknown History tablet Pain vitamins A,C,A-xgll-ewzvzx 4,296 1 cap PO BID 06/16/21 07/04/21 06/14/21 History mcg-226 mg-90 mg capsule (PreserVision AREDS) insulin detemir U-100 100 unit/mL See Rx Instructions .Route 06/20/21 07/04/21 06/14/21 Rx (3 mL) subcutaneous pen (Levemir .COMPLEX #0 mL FlexTouch U-100 Insulin) furosemide 20 mg tablet (Lasix) 20 mg PO DAILY #30 tabs 09/22/21 Unknown Rx amiodarone 200 mg tablet 200 mg PO DAILY 90 days #30 tabs 01/29/22 Unknown Rx apixaban 5 mg tablet (Eliquis) 5 mg PO BID #30 tabs 05/28/22 Unknown Rx lisinopril 20 mg tablet 20 mg PO BID #60 tabs 06/27/22 Unknown Rx Allergies Allergy/AdvReac Type Severity Reaction Status Date / Time fish oil Allergy Unknown Verified 11/04/19 15:48 PFSH Acute PFSH: Medical History Atrial flutter Diabetes Essential hypertension Hyperlipidemia Polio osteopathy of lower leg Surgical History H/O aortic valve replacement History of aortic valve replacement with bioprosthetic valve bovine valve 10/13/2013 at [facility] History of cholecystectomy History of eye surgery History of foot surgery History of shoulder surgery History of surgery on arm Family History Mother CAD (coronary artery disease) Social History Smoking and tobacco status: never smoked Alcohol intake: never Substance/Drug Use: never Lives independently: Yes Household members: none Housing: House Additional social history: Has home health care, electric wheelchair Vitals/I&O/Wt Last Vital Signs Temp 97.3 F L 06/21/23 23:15 Pulse 61 06/22/23 02:00 Resp 30 H 06/22/23 02:00 BP 144/76 06/22/23 02:00 Pulse Ox 98 06/22/23 02:00 O2 Del Method Nasal Cannula 06/22/23 02:00 O2 Flow Rate 3 06/22/23 02:00 Weight last 48 hrs Weight 77.111 kg Physical Exam Narrative: She is alert awake oriented x3 in moderate respiratory distress Chest bilateral coarse crackles present occasional wheezing Cardiovascular normal heart sounds regular rhythm, systolic murmur heard over the mitral area Abdomen NAD Extremities no pedal edema seen. Data 06/21/23 23:48 06/21/23 23:48 Micro: Microbiology 06/21/23 23:51 Blood Culture - Preliminary Blood SPECIMEN COLLECTED 06/21/23 23:48 Blood Culture - Preliminary Blood SPECIMEN COLLECTED CXR: Radiologist's impression: IMPRESSION: 1. ? Cardiomegaly is present. 2. ? Pulmonary venous congestion and bilateral infiltrates noted. Findings are suggestive of fluid overload/CHF.? This appears more severe compared to prior XR chest 09/22/2021. 3. ? Small bilateral pleural effusions. These effusions have increased in size when compared to 09/22/2021. EKG 1: My Interpretation: Normal sinus rhythm, left axis deviation, no acute ST-T changes A&P Assessment and plan (1) Acute respiratory failure with hypoxia: (2) Pulmonary edema: (3) Congestive heart failure: Plan 73-year-old with history of CHF presented with acute shortness of breath and found to have hypoxia, BNP of 32,000 and chest x-ray consistent with fluid overload likely secondary to congestive heart failure Will give IV Lasix 40 mg every 12 hours Duo nebs every 8 hours Recheck labs in a.m. Daily weight Monitor I's and O's, Insert Krause's catheter Resume home medications She is full code for now PUD prophylaxis with IV pantoprazole 40 mg daily DVT prophylaxis not needed since patient already on Eliquis for atrial fibrillation. Attestations Medical Necessity Statement*: She would need continued hospitalization for more than 2 midnights for diuresis and supportive supplemental oxygenation for acute hypoxic respiratory failure secondary to congestive heart failure Time Spent in Patient Care: 30 minutes Coding Level of Care Code Acute Code for Chg Fwd Diagnoses Acute respiratory failure with hypoxia J96.01 Pulmonary edema J81.1 Congestive heart failure I50.9 Time Spent (min) 30
[2023-06-22 02:18] LABS: Troponin 5 2HR 36.18 ng/L (0-10); Troponin 5 2HR Delta -0.82 ABS# (0-10)
[2023-06-22 03:08] LABS: Lactic Acid level (Lactate) 2.9 mmol/L (0.5-2.2)
--- NOTE | 2023-06-22 05:30 | ECG_ITS ---
[facility] Test Date: 2023-06-22 Pat Name: Renae Padilla Department: Room: 111 Gender: Female Welfare Manager: : 1950 Requested By: Garett King Order Number: [id number] Irene MD: Donald Alba M.D. Measurements Intervals [place] Rate: 61 P: 0 FL: 0 QRS: -32 QRSD: 109 T: 32 QT: 556 QTc: 560 Interpretive Statements SUPRAVENTRICULAR RHYTHM Significant baseline artifact LEFT AXIS DEVIATION [QRS AXIS < -30] S1-S2-S3 PATTERN, CONSISTENT WITH PULMONARY DISEASE, RVH, OR NORMAL VARIANT INCOMPLETE RIGHT BUNDLE BRANCH BLOCK [90+ ms QRS DURATION, TERMINAL R IN V1/V2, 40+ ms S IN I/aVL/V4/V5/V6] MODERATE T-WAVE ABNORMALITY, CONSIDER ANTEROLATERAL ISCHEMIA [-0.1+ mV T-WAVE IN V3-V6] PROLONGED QT INTERVAL CRITICAL TEST RESULT Compared to ECG 06/22/2023 00:08:00 Supraventricular rhythm now present Incomplete right bundle-branch block now present Electronically Signed On 06-22-2023 14:04:10 CDT by Donald Alba M.D. [id number]
[2023-06-22 06:27] LABS: Troponin 5 6HR 35.35 ng/L (0-10)
[2023-06-22 06:28] LABS: Troponin 5 6HR Delta -1.65 ng/L (0-12)
[2023-06-22] MEDS: famotidine 20 mg/2 mL INJ IVP ×2 (06:30→17:49)
--- NOTE | 2023-06-22 09:10 | PC.PHAR ---
[facility] UNABLE TO VERIFY OTC VITAMINS, SUPPLEMENTS. PHARMACIST VERIFIED PT DOES NOT TAKE METFORMIN, AMIODARONE, AMLODIPINE, TRICOR, OR LASIX. LEVEMIR FLEXTOUCH U 100 CURRENTLY IS 30 UNITS IN AM AND 15 UNITS AT NIGHT. LAST FILLED 04/09 FOR 90 DAY SUPPLY.
[2023-06-22] MEDS: amlodipine 10 mg Tablet PO (09:15)
[2023-06-22] MEDS: aspirin 81 mg EC Tablet PO (09:15)
[2023-06-22] MEDS: metoprolol tartrate 25 mg Tablet PO ×2 (09:15→17:49)
[2023-06-22] MEDS: magnesium oxide 400 mg tablet PO ×2 (09:15→17:49)
[2023-06-22] MEDS: apixaban 5 mg Tablet PO ×2 (09:15→17:49)
[2023-06-22] MEDS: amiodarone 200 mg Tablet PO (09:15)
[2023-06-22] MEDS: lisinopril 20 mg Tablet PO ×2 (09:15→17:49)
[2023-06-22] MEDS: insulin glargine 100 units/1 mL 10 UNIT SUBCUT (09:16)
[2023-06-22] MEDS: metformin 500 mg Tablet 1000 MG PO ×2 (09:16→17:49)
--- NOTE | 2023-06-22 17:26 | P.MISC_ITS ---
Miscellaneous Note Purpose of Documentation: . Overnight chart and H&P reviewed. Continue IV Lasix Per review of patient's home nursing records it appears patient used to be hospice up until a few months ago, however was taken off as she survived longer than expected. She is currently full code per her own wishes. Other Coding Information Prolonged care (total time indicated above or notated here) ([facility] discussion)
[2023-06-22] MEDS: insulin glargine 100 units/1 mL 20 UNIT SUBCUT (17:49)
[2023-06-22] MEDS: fenofibrate 145 mg Tablet PO (20:44)
[2023-06-23] VITALS (8 sets, daily range): BP systolic 99–158; BP diastolic 56–95; PULSE 56–72; RESP 15–18; TEMP 36.4–36.9; O2SAT 92–99
[2023-06-23 04:40] LABS: Alanine Aminotransferase 10 U/L (0-33); Albumin Level 3.8 g/dL (3.5-5.2); Alkaline Phosphatase 68 U/L (35-105); Anion Gap 15.5 (5-19); Aspartate Amino Transferase 23 U/L (0-32); Blood Urea Nitrogen 19 mg/dL (8-23); Calcium 9.4 mg/dL (8.5-10.5); Carbon Dioxide 33 mmol/L (22-29); Chloride 100 mmol/L (98-107); Globulin 2.1 g/dL (1.3-4.6); Glucose 70 mg/dL (65-115); Magnesium 1.3 mg/dL (1.7-2.3); Osmolality Calculated 301 mOsm/kg (285-295); Potassium 3.5 mmol/L (3.5-5.1); Sodium 145 mmol/L (136-145); Total Bilirubin 0.4 mg/dL (0.15-1.2); Total Protein 5.9 g/dL (6.6-8.7)
[2023-06-23 04:43] LABS: NT Pro B Type Natriuretic Pept 16108 pg/mL (0-450)
[2023-06-23] MEDS: FUROsemide 10 mg/mL SDV 4mL 40 MG IVP ×3 (06:06→16:29)
[2023-06-23] MEDS: famotidine 20 mg/2 mL INJ IVP ×2 (06:06→17:54)
[2023-06-23 07:29] LABS: Glucose Point of Care 92 mg/dL (70-110)
[2023-06-23] MEDS: apixaban 5 mg Tablet PO ×2 (08:25→17:53)
[2023-06-23] MEDS: amiodarone 200 mg Tablet PO (08:25)
[2023-06-23] MEDS: metoprolol tartrate 25 mg Tablet PO ×2 (08:25→17:53)
[2023-06-23] MEDS: aspirin 81 mg EC Tablet PO (08:25)
[2023-06-23] MEDS: magnesium oxide 400 mg tablet PO ×2 (08:25→17:53)
[2023-06-23] MEDS: lisinopril 20 mg Tablet PO ×2 (08:25→17:53)
[2023-06-23] MEDS: amlodipine 10 mg Tablet PO (08:25)
[2023-06-23 11:31] LABS: Glucose Point of Care 169 mg/dL (70-110)
[2023-06-23] MEDS: metformin 500 mg Tablet 1000 MG PO ×2 (12:13→17:53)
[2023-06-23] MEDS: insulin glargine 100 units/1 mL 10 UNIT SUBCUT (12:14)
--- NOTE | 2023-06-23 16:02 | PM.PN ---
Subjective Subjective: No new complaints. States that breathing is getting easier. Continued on IV diuresis Vitals/I&O/Wt Last Vital Signs Temp 98.3 F 06/23/23 11:51 Pulse 62 06/23/23 11:51 Resp 16 06/23/23 11:51 BP 130/66 06/23/23 11:51 Pulse Ox 99 06/23/23 11:51 O2 Del Method Room Air 06/23/23 11:51 O2 Flow Rate 1 06/23/23 08:00 06/23/23 06/23/23 06/23/23 06:59 14:59 22:59 Intake Total 120 / 690 360 / 360 Output Total 1400 / 4150 Balance -1280 / -3460 360 / 360 Weight last 48 hrs Weight 77.111 kg Physical Exam Narrative: General: No acute distress, AO x3 HEENT: PERRLA, pupils bilaterally equal and reactive, pallors not present Chest: Intermittent crackles to auscultation. CVS: S1-S2 regular, no murmurs, no tachycardia, no gallops, no rubs Abdomen: Soft, nontender, no organomegaly, bowel sounds present Neuro: No focal deficits, no facial deformity, AO x3, power 5/5 in all limbs Urinary Catheter Management: Krause: Cath Placed During This Visit: yes Reason for Continuing Indwelling Catheter: Accurate Measurement of Urinary Output in Critically Ill Patients Urinary Catheter Date of Insertion: 06/22/23 Urinary Catheter Time of Insertion: 05:45 Data 06/21/23 23:48 06/23/23 03:30 Micro: Microbiology 06/21/23 23:51 Blood Culture - Preliminary Blood NEGATIVE TO DATE 06/21/23 23:48 Blood Culture - Preliminary Blood NEGATIVE TO DATE A&P Assessment and plan (1) Acute respiratory failure with hypoxia: (2) Pulmonary edema: (3) Congestive heart failure: Plan 73-year-old with history of CHF presented with acute shortness of breath and found to have hypoxia, BNP of 32,000 and chest x-ray consistent with fluid overload likely secondary to congestive heart failure continue IV Lasix 40 mg every 12 hours Duo nebs every 8 hours. Daily weight Monitor I's and O's,renal function pending echocardiogram from 2020, LVEF 65%, gr 2 diatsolic dysfucntion, severely thickened MV She is full code for now PUD prophylaxis with IV pantoprazole 40 mg daily DVT prophylaxis not needed since patient already on Eliquis for atrial fibrillation. Attestations Medical Necessity Statement*: Ongoing need for IV diuresis, monitor intake and output and renal function with continued diuresis. Coding Level of Care Code Acute Code for Chg Fwd Moderate MDM includes number and complexity of problems actively addressed during encounter, amount and/or complexity of data reviewed/ordered and described risk of complication, morbidity or mortality of management as documented Diagnoses Acute respiratory failure with hypoxia J96.01 Pulmonary edema J81.1 Congestive heart failure I50.9
--- NOTE | 2023-06-23 16:04 | USCV_ITS ---
Renae Padilla Age: 73 Gender: F : 1950 Exam Date: 06/23/2023 16:33 Ordering Phys: Renea Canales MD Technologist: Scott Varela [place] [facility] [place]: CHF BP: 127 / 67 HR: 63 Rhythm: Sinus Technical Quality: Technically difficult study MEASUREMENTS (Male / Female) Normal Values 2D ECHO LVOT Diameter 2.0 cm LV Ejection Fraction MOD 2C 53.5 % LV Ejection Fraction 2C AL 53.9 % LA Diameter 4.8 cm LA Width 3.9 cm LA Height 5.9 cm RA Width 3.8 cm RA Height 4.8 cm Aorta at Sinotubular Diameter 2.0 cm IVC Diameter 1.8 cm M-MODE Aortic Annulus Diameter 2.6 cm LA Ao Ratio MM 2.0 MV E Point Septal Separation 1.1 cm DOPPLER AV Peak Velocity 195.0 cm/s LVOT Peak Velocity 70.0 cm/s AV Area Cont Eq vti 1.0 cm squared AV Area Cont Eq pk 1.2 cm squared MV Peak Velocity 191.0 cm/s MV Area PHT 2.3 cm squared Mitral E to A Ratio 1.5 MV E' Velocity 115.8 cm/s Mitral E to MV E' Ratio 37.5 Mitral E to LV E' Lateral Ratio 29.6 Mitral E to LV E' Septal Ratio 51.3 TR Peak Velocity 187.7 cm/s TR Peak Gradient 14.1 mmHg TR Mean Velocity 159.2 cm/s TR Mean Gradient 10.2 mmHg TR Velocity Time Integral 42.2 cm Right Atrial Pressure 3.0 mmHg Pulmonary Artery Systolic Pressu 17.1 mmHg PV Peak Velocity 150.0 cm/s RV Acceleration Time 0.1 s RV Ejection Time 0.3 s RV AcT/ET 0.4 FINDINGS Left Ventricle Normal left ventricular cavity size. Moderate left ventricular hypertrophy. Normal left ventricular systolic function. No regional wall motion abnormalities. Grade II/IV diastolic dysfunction, moderately elevated filling pressures. Left ventricular ejection fraction is estimated at 65 %. Right Ventricle Normal right ventricular size and systolic function. Normal right ventricular systolic pressure. Right Atrium Mildly increased right atrial size. Left Atrium Mildly increased left atrial size. Mitral Valve Mitral valve not well visualized. Severe mitral annular calcification. Mild mitral valve regurgitation. There may be mild functional mitral stenosis due to the heavy calcification. Aortic Valve Aortic valve not well visualized. Moderate aortic valve calcification. Mild aortic valve stenosis, mean gradient 9.5 mmHg, DARCY 1 cm squared. Tricuspid Valve Structurally normal tricuspid valve. Trace tricuspid valve regurgitation. Pulmonic Valve Pulmonic valve not well visualized. Mild pulmonary valve regurgitation. Pericardium Normal pericardium without effusion. Aorta Normal ascending aorta dimension. IVC The inferior vena cava appears normal. CONCLUSIONS Normal left ventricular cavity size. Moderate left ventricular hypertrophy. Normal left ventricular systolic function. No regional wall motion abnormalities. Grade II/IV diastolic dysfunction, moderately elevated filling pressures. Left ventricular ejection fraction is estimated at 65 %. Mildly increased right atrial size. Mildly increased left atrial size. Mitral valve not well visualized. Severe mitral annular calcification. Mild mitral valve regurgitation. There may be mild functional mitral stenosis due to the heavy calcification. Aortic valve not well visualized. Moderate aortic valve calcification. Mild aortic valve stenosis, mean gradient 9.5 mmHg, DARCY 1 cm squared. No change from the previous echo dated 08/16/2021 Dr. Donald Alba MD (Electronically Signed) Final Date: 24 June 2023 05:45 S
[2023-06-23 16:56] LABS: Glucose Point of Care 171 mg/dL (70-110)
[2023-06-23] MEDS: ondansetron 2 mg/ML SDV 2 mL 4 MG IVP (17:54)
[2023-06-23] MEDS: insulin glargine 100 units/1 mL 20 UNIT SUBCUT (17:54)
[2023-06-23] MEDS: fenofibrate 145 mg Tablet PO (20:26)
[2023-06-23 22:03] LABS: Glucose Point of Care 296 mg/dL (70-110)
[2023-06-24] VITALS (10 sets, daily range): BP systolic 104–135; BP diastolic 51–67; PULSE 53–70; RESP 15–26; TEMP 36.5–36.9; O2SAT 90–99
[2023-06-24 04:04] LABS: Basophils # 0.1 10^3/uL (0.0-0.1); Basophils % 0.7 %; Eosinophils # 0.2 10^3/uL (0.0-0.8); Eosinophils % 2.7 %; Hematocrit 32.2 % (36-47); Lymphocytes # 1.6 10^3/uL (0.8-4.8); Lymphocytes % 23.1 %; Mean Corpuscular HGB Conc 30.7 g/dL (30-55); Mean Corpuscular Hemoglobin 29.9 pg (27-33); Mean Corpuscular Volume 97.3 fl (85-98); Mean Platelet Volume 10.1 fL (7.4-10.4); Monocytes # 0.6 10^3/uL (0.2-0.9); Monocytes % 9.2 %; Neutrophils # 4.32 10^3/uL (1.8-7.7); Nucleated Red Blood Cells % 0 %; Platelet Count 248 10^3/cmm (157-399); Red Blood Count 3.31 10^6/uL (3.85-5.65); White Blood Count 6.75 10^3/uL (3.29-11.43)
[2023-06-24 04:22] LABS: Alanine Aminotransferase 10 U/L (0-33); Albumin Level 3.9 g/dL (3.5-5.2); Alkaline Phosphatase 64 U/L (35-105); Anion Gap 12.1 (5-19); Aspartate Amino Transferase 25 U/L (0-32); Blood Urea Nitrogen 27 mg/dL (8-23); Carbon Dioxide 37 mmol/L (22-29); Chloride 97 mmol/L (98-107); Globulin 1.9 g/dL (1.3-4.6); Glucose 107 mg/dL (65-115); Osmolality Calculated 300 mOsm/kg (285-295); Potassium 4.1 mmol/L (3.5-5.1); Sodium 142 mmol/L (136-145); Total Bilirubin 0.3 mg/dL (0.15-1.2); Total Protein 5.8 g/dL (6.6-8.7)
[2023-06-24] MEDS: FUROsemide 10 mg/mL SDV 4mL 40 MG IVP ×2 (04:57→15:29)
[2023-06-24] MEDS: famotidine 20 mg/2 mL INJ IVP ×2 (05:01→17:21)
[2023-06-24 07:02] LABS: Glucose Point of Care 110 mg/dL (70-110)
[2023-06-24] MEDS: lisinopril 20 mg Tablet PO ×2 (08:33→17:21)
[2023-06-24] MEDS: apixaban 5 mg Tablet PO ×2 (08:33→17:21)
[2023-06-24] MEDS: metformin 500 mg Tablet 1000 MG PO (08:33)
[2023-06-24] MEDS: magnesium oxide 400 mg tablet PO ×2 (08:33→17:21)
[2023-06-24] MEDS: amlodipine 10 mg Tablet PO (08:33)
[2023-06-24] MEDS: aspirin 81 mg EC Tablet PO (08:33)
[2023-06-24] MEDS: insulin glargine 100 units/1 mL 10 UNIT SUBCUT ×2 (08:33→21:07)
[2023-06-24] MEDS: amiodarone 200 mg Tablet PO (09:37)
[2023-06-24] MEDS: potassium chloride ER 20 mEq Tablet PO ×2 (09:37→21:00)
[2023-06-24 11:27] LABS: Glucose Point of Care 179 mg/dL (70-110)
[2023-06-24] MEDS: insulin lispro 100 unit/1 mL SUBCUT (12:50)
[2023-06-24] MEDS: polyethylene glycol 3350 Pkt 17 gm PO (15:29)
[2023-06-24 16:28] LABS: Glucose Point of Care 137 mg/dL (70-110)
--- NOTE | 2023-06-24 16:30 | P.PN_ITS ---
Subjective Subjective: Patient was seen this morning, she tells me that she was on hospice for heart failure, and deconditioning, currently off hospice, she tells me that her shortness of breath improve her edema is improved, she tells me that at baseline she does not ambulate, she is wheelchair-bound she has home health care, she can manage at home by herself, Vitals/I&O/Wt Last Vital Signs Temp 97.9 F 06/24/23 16:00 Pulse 66 06/24/23 16:00 Resp 26 H 06/24/23 16:00 BP 112/52 06/24/23 16:00 Pulse Ox 95 06/24/23 16:00 O2 Del Method Room Air 06/24/23 16:00 O2 Flow Rate 1 06/24/23 08:00 06/24/23 06/24/23 06/24/23 06:59 14:59 22:59 Intake Total 222 / 1044 480 / 480 Output Total 100 / 2100 400 / 400 Balance 122 / -1056 80 / 80 Physical Exam Const: COMMON NORMALS: no acute distress and patient oriented x3 Resp: COMMON NORMALS: normal respiratory effort, No retractions, No use of accessory muscles and clear to auscultation bilaterally AUSCULTATION: clear to auscultation bilaterally Cardio: COMMON NORMALS: regular rate, regular rhythm, S1 normal heart sound present and S2 normal heart sound present RATE: regular rate RHYTHM: regular rhythm HEART SOUNDS: S1 normal heart sound present and S2 normal heart sound present GI: COMMON NORMALS: Normal to inspection, nondistended, normoactive bowel sounds present and non-tender Extremity: NARRATIVE EXTREMITY EXAM: 1+ pitting edema Neuro: COMMON NORMALS: patient oriented x3 Psych: COMMON NORMALS: mental status grossly normal Urinary Catheter Management: Krause: Cath Placed During This Visit: yes Reason for Continuing Indwelling Catheter: Accurate Measurement of Urinary Output in Critically Ill Patients Urinary Catheter Date of Insertion: 06/22/23 Urinary Catheter Time of Insertion: 05:45 Data 06/24/23 03:44 06/24/23 03:44 A&P Assessment and plan (1) Acute respiratory failure with hypoxia: (2) Pulmonary edema: (3) Congestive heart failure: Plan 73-year-old with history of CHF presented with acute shortness of breath and fou nd to have hypoxia, BNP of 32,000 and chest x-ray consistent with fluid overload likely secondary to congestive heart failure -Has diuresed over 4 L continue IV Lasix 40 mg every 24 hours Duo nebs every 8 hours. Daily weight Monitor I's and O's,renal function pending echocardiogram from 2020, LVEF 65%, gr 2 diatsolic dysfucntion, severely thickened MV Type 2 diabetes mellitus, decrease Lantus to 10 units every 12 hours, low-dose sliding scale She is full code for now PUD prophylaxis with IV pantoprazole 40 mg daily DVT prophylaxis not needed since patient already on Eliquis for atrial fibri llation. Plan for today decrease insulin evening dose to 10 units, continue diuresis, patient is nonambulatory at baseline, she lives at home by herself, plan on discharging to home, heart rates in the low 60s, hold metoprolol Attestations Medical Necessity Statement*: Patient requires hospitalization for CHF exacerbation Diagnoses Acute respiratory failure with hypoxia J96.01 Pulmonary edema J81.1 Congestive heart failure I50.9
[2023-06-24] MEDS: fenofibrate 145 mg Tablet PO (20:59)
[2023-06-24 21:45] LABS: Glucose Point of Care 215 mg/dL (70-110)
[2023-06-25] VITALS (7 sets, daily range): BP systolic 130–148; BP diastolic 58–81; PULSE 61–74; RESP 17–21; TEMP 36.4–36.7; O2SAT 88–99
[2023-06-25 03:50] LABS: Basophils # 0.1 10^3/uL (0.0-0.1); Basophils % 0.6 %; Eosinophils # 0.3 10^3/uL (0.0-0.8); Eosinophils % 3.1 %; Hematocrit 35.4 % (36-47); Lymphocytes # 2.9 10^3/uL (0.8-4.8); Lymphocytes % 36.4 %; Mean Corpuscular HGB Conc 30.5 g/dL (30-55); Mean Corpuscular Hemoglobin 29.9 pg (27-33); Mean Corpuscular Volume 98.1 fl (85-98); Mean Platelet Volume 10.1 fL (7.4-10.4); Monocytes # 0.8 10^3/uL (0.2-0.9); Monocytes % 9.4 %; Neutrophils # 4.02 10^3/uL (1.8-7.7); Neutrophils % 50.2 %; Nucleated Red Blood Cells % 0 %; Platelet Count 275 10^3/cmm (157-399); Red Blood Count 3.61 10^6/uL (3.85-5.65); Red Cell Distribution Width 14.9 % (12.1-15.1)
[2023-06-25 04:22] LABS: Anion Gap 12.3 (5-19); Blood Urea Nitrogen 33 mg/dL (8-23); Calcium 9.5 mg/dL (8.5-10.5); Carbon Dioxide 37 mmol/L (22-29); Chloride 96 mmol/L (98-107); Glucose 67 mg/dL (65-115); NT Pro B Type Natriuretic Pept 6802 pg/mL (0-450); Osmolality Calculated 298 mOsm/kg (285-295); Potassium 4.3 mmol/L (3.5-5.1); Sodium 141 mmol/L (136-145)
[2023-06-25] MEDS: famotidine 20 mg/2 mL INJ IVP (05:35)
[2023-06-25 06:33] LABS: Glucose Point of Care 77 mg/dL (70-110)
[2023-06-25] MEDS: potassium chloride ER 20 mEq Tablet PO (09:01)
[2023-06-25] MEDS: magnesium oxide 400 mg tablet PO (09:01)
[2023-06-25] MEDS: apixaban 5 mg Tablet PO (09:01)
[2023-06-25] MEDS: amlodipine 10 mg Tablet PO (09:01)
[2023-06-25] MEDS: aspirin 81 mg EC Tablet PO (09:01)
[2023-06-25] MEDS: insulin glargine 100 units/1 mL 10 UNIT SUBCUT (09:01)
[2023-06-25] MEDS: amiodarone 200 mg Tablet PO (09:01)
[2023-06-25] MEDS: lisinopril 20 mg Tablet PO (09:01)
[2023-06-25] MEDS: polyethylene glycol 3350 Pkt 17 gm PO (09:02)
[2023-06-25] MEDS: metOLazone 5 MG Tablet 2.5 MG PO (09:03)
--- NOTE | 2023-06-25 10:27 | PC.SOCIAL ---
IMM update IMM updated with patient. Verbalized an understanding. Copy PG 2 provided. Initialled, dated, timed, and placed in chart.
--- NOTE | 2023-06-25 11:03 | P.DS_ITS ---
Discharge Providers Date of Admission: 06/22/23 01:38 Date of Discharge: June 25, 2023 Attending Provider at Admission: Eryn Shah MD Attending Provider at Discharge: Mickey Manning MD Primary Care Provider: Lillian Locke Diagnoses at Discharge Discharge Diagnosis (1) Acute respiratory failure with hypoxia: Status: Acute (2) Pulmonary edema: Status: Acute (3) Congestive heart failure: Status: Acute Reason for Visit Reason for Visit: SOB Hospital Course Hospital Course marc Padilla is a 73 year old female with history of postpolio syndrome atrial fibrillation, CHF hyperlipidemia hypertension GERD presented with complaint of acute shortness of breath since this afternoon.? Found is found to have oxygen saturation of 80% on room air systolic blood pressure of 190s but denies any fever cold cough chest pain abdominal pain nausea vomiting or urinary complaints. In the ER she was placed on 3 L nasal cannula and saturating 95%.? Also found to have a BNP of 17,000 and chest x-ray consistent with vascular congestion/pulmonary edema. Last 2D echo was done in 2020 showed EF of 65% and grade 3-4 diastolic dysfunction Patient was admitted to [facility] for CHF exacerbation, diastolic CHF exacerbation, received IV diuresis, diuresed over 5 L, overall clinically improved. Will be discharged on Lasix 40 mg once daily with potassium replacement therapy with close follow-up with her primary care provider for recheck creatinine and potassium on Saturday with a follow-up cardiology in 2 weeks. Patient's cardiac echocardiogram CONCLUSIONS ?Normal left ventricular cavity size. Moderate left ventricular ?hypertrophy. Normal left ventricular systolic function. No ?regional wall motion abnormalities. Grade II/IV diastolic ?dysfunction, moderately elevated filling pressures. Left ?ventricular ejection fraction is estimated at 65 %. ?Mildly increased right atrial size. ?Mildly increased left atrial size. ?Mitral valve not well visualized. Severe mitral annular ?calcification. Mild mitral valve regurgitation.? There may be ?mild functional mitral stenosis due to the heavy calcification. ?Aortic valve not well visualized. Moderate aortic valve ?calcification. Mild aortic valve stenosis, mean gradient 9.5 ?mmHg, DARCY 1 cm squared. ?No change from the previous echo dated 08/16/2021 -We will have patient follow-up with cardiology Patient has postpolio syndrome, is nonambulatory at baseline, uses a wheelchair, has home health care I have strongly advised for her to go to [facility] however she declines Physical Exam Const: COMMON NORMALS: no acute distress and patient oriented x3 Resp: COMMON NORMALS: normal respiratory effort, No retractions, No use of accessory muscles and clear to auscultation bilaterally AUSCULTATION: clear to auscultation bilaterally Cardio: COMMON NORMALS: regular rate, regular rhythm, S1 normal heart sound present and S2 normal heart sound present RATE: regular rate RHYTHM: regular rhythm HEART SOUNDS: S1 normal heart sound present and S2 normal he art sound present GI: COMMON NORMALS: Normal to inspection, nondistended, normoactive bowel sounds present and non-tender Extremity: COMMON NORMALS: no pedal edema Neuro: COMMON NORMALS: patient oriented x3 Psych: COMMON NORMALS: mental status grossly normal Urinary Catheter Management: Krause: Cath Placed During This Visit: yes Reason for Continuing Indwelling Catheter: Accurate Measurement of Urinary Output in Critically Ill Patients Urinary Catheter Date of Insertion: 06/22/23 Urinary Catheter Time of Insertion: 05:45 Discharge Data Studies Completed and Pending Completed Studies During Hospitalization Category Date Time Status XR chest 1V portable [id number] Stat Exams 06/21/23 23:30 Completed CV. echo complete* [id number] Routine Ultrasound 06/23/23 16:04 Completed Pending at discharge Category Date Time Status Basic Metabolic Panel AM LABS Lab 06/26/23 04:00 Ordered Basic Metabolic Panel AM LABS Lab 06/27/23 04:00 Ordered Blood Culture Stat Lab 06/21/23 23:51 Results Complete Blood Count w/Auto AM LABS Lab 06/26/23 04:00 Ordered Complete Blood Count w/Auto AM LABS Lab 06/27/23 04:00 Ordered NT Pro B Type Natriuretic Pept QAM Lab 06/26/23 06:00 Ordered NT Pro B Type Natriuretic Pept QAM Lab 06/27/23 06:00 Ordered Radiology Impressions Chest X-Ray 06/21/23 23:30 IMPRESSION: 1. Cardiomegaly is present. 2. Pulmonary venous congestion and bilateral infiltrates noted. Findings are suggestive of fluid overload/CHF. This appears more severe compared to prior XR chest 09/22/2021. 3. Small bilateral pleural effusions. These effusions have increased in size when compared to 09/22/2021. Laboratory Results WBC 8.00 10^3/uL (3.29-11.43) 06/25/23 02:49 RBC 3.61 10^6/uL (3.85-5.65) L 06/25/23 02:49 Hgb 10.80 g/dL (11.27-16.99) L 06/25/23 02:49 Hct 35.4 % (36-47) L 06/25/23 02:49 MCV 98.1 fl (85-98) H 06/25/23 02:49 MCH 29.9 pg (27-33) 06/25/23 02:49 MCHC 30.5 g/dL (30-55) 06/25/23 02:49 RDW 14.9 % (12.1-15.1) 06/25/23 02:49 Plt Count 275 10^3/cmm (157-399) 06/25/23 02:49 MPV 10.1 fL (7.4-10.4) 06/25/23 02:49 Neut % (Auto) 50.2 % 06/25/23 02:49 Lymph % (Auto) 36.4 % 06/25/23 02:49 [place] % (Auto) 9.4 % 06/25/23 02:49 Eos % (Auto) 3.1 % 06/25/23 02:49 Baso % (Auto) 0.6 % 06/25/23 02:49 Neut # (Auto) 4.02 10^3/uL (1.8-7.7) 06/25/23 02:49 Lymph # (Auto) 2.9 10^3/uL (0.8-4.8) 06/25/23 02:49 [place] # (Auto) 0.8 10^3/uL (0.2-0.9) 06/25/23 02:49 Eos # (Auto) 0.3 10^3/uL (0.0-0.8) 06/25/23 02:49 Baso # (Auto) 0.1 10^3/uL (0.0-0.1) 06/25/23 02:49 Nucleated RBC % (auto) 0 % 06/25/23 02:49 Nucleated RBCs # 0.0 /100WBC 06/25/23 02:49 PT 15.90 SECONDS (12.1-14.9) H 06/21/23 23:48 INR 1.23 (0.8-1.2) H 06/21/23 23:48 Specimen Type Arterial 06/21/23 23:35 Sample Site Radial, right 06/21/23 23:35 ABG pH 7.43 (7.35-7.45) 06/21/23 23:35 ABG pCO2 41.8 mmHg (35-45) 06/21/23 23:35 ABG pO2 92.3 mmHg (80.0-100.0) 06/21/23 23:35 ABG HCO3 27.7 mmol/L (22-26) H 06/21/23 23:35 ABG Base Excess 3.0 mmol/L (-2.0-2.0) H 06/21/23 23:35 Abdullahi Test Pos 06/21/23 23:35 Hematocrit 31.8 % (37-47) L 06/21/23 23:35 Hgb O2 Saturation 95.3 % (95-100) 06/21/23 23:35 Carboxyhemoglobin 1.1 %THgb (0.4-20.1) 06/21/23 23:35 Methemoglobin 0.5 % (0.4-1.5) 06/21/23 23:35 Total Hemoglobin 10.4 g/dL (12-16) L 06/21/23 23:35 O2 Delivery Device Nc 06/21/23 23:35 FiO2 40.0 % 06/21/23 23:35 CPAP 10.0 cmH20 06/21/23 23:35 Muffle Operator ID [email or web address] 06/21/23 23:35 Sodium 141 mmol/L (136-145) 06/25/23 02:49 Potassium 4.3 mmol/L (3.5-5.1) 06/25/23 02:49 Chloride 96 mmol/L (98-107) L 06/25/23 02:49 Carbon Dioxide 37 mmol/L (22-29) H 06/25/23 02:49 Anion Gap 12.3 (5-19) 06/25/23 02:49 BUN 33 mg/dL (8-23) H 06/25/23 02:49 Creatinine 0.5 mg/dL (0.5-0.9) 06/25/23 02:49 GFR Calculation Not Reportable 06/25/23 02:49 Glucose 67 mg/dL (65-115) 06/25/23 02:49 POC Glucose 77 mg/dL (70-110) 06/25/23 06:07 Calculated Osmolality 298 mOsm/kg (285-295) H 06/25/23 02:49 Lactic Acid 3.1 mmol/L (0.5-2.2) H 06/21/23 23:48 Lactic Acid (Sepsis) 2.9 mmol/L (0.5-2.2) H 06/22/23 02:44 Calcium 9.5 mg/dL (8.5-10.5) 06/25/23 02:49 Magnesium 1.3 mg/dL (1.7-2.3) L 06/23/23 03:30 Total Bilirubin 0.3 mg/dL (0.15-1.2) 06/24/23 03:44 AST 25 U/L (0-32) 06/24/23 03:44 ALT 10 U/L (0-33) 06/24/23 03:44 Alkaline Phosphatase 64 U/L (35-105) 06/24/23 03:44 Troponin T Baseline 37 ng/L (0-10) H 06/21/23 23:48 Troponin T 120 Minute 36.18 ng/L (0-10) H 06/22/23 01:46 Delta Troponin T -0.82 ABS# (0-10) L 06/22/23 01:46 Troponin T Hi Sens 6Hr 35.35 ng/L (0-10) H 06/22/23 05:56 Troponin T Hi Sens 6Hr Delta -1.65 ng/L (0-12) L 06/22/23 05:56 NT-Pro-B Natriuret Pep 6802 pg/mL (0-450) H 06/25/23 02:49 Total Protein 5.8 g/dL (6.6-8.7) L 06/24/23 03:44 Albumin 3.9 g/dL (3.5-5.2) 06/24/23 03:44 Globulin 1.9 g/dL (1.3-4.6) 06/24/23 03:44 SARS-CoV-2 Ag (Rapid) negative (Negative) 06/22/23 01:20 Vitals Last Vital Signs Temp 98.0 F 06/25/23 07:16 Pulse 62 06/25/23 07:39 Resp 21 H 06/25/23 07:16 BP 130/60 06/25/23 07:16 Pulse Ox 91 06/25/23 09:12 O2 Del Method Nasal Cannula 06/25/23 07:40 O2 Flow Rate 2 06/25/23 09:12 Discharge Plan Discharge Patient Disposition: Home Health Service Condition: Stable Prescriptions: New furosemide 40 mg Tablet 40 mg PO DAILY@0800 30 Days Qty: 30 0RF Klor-Con M20 20 mEq Tablet,Er Particles/Crystals 20 meq PO Q24H 30 Days Qty: 30 0RF Levemir FlexPen 100 unit/mL (3 mL) insulin pen 10 unit SUBCUT Q12H 30 Days Qty: 6 0RF metformin 1,000 mg tablet 1,000 mg PO BID 30 Days Qty: 60 0RF fenofibrate nanocrystallized 145 mg Tablet 145 mg PO BEDTIME 30 Days Qty: 30 0RF Continued Eliquis 5 mg tablet 5 mg PO BID Qty: 30 0RF Rx Instructions: MUST make follow-up for further refills lisinopril 20 mg tablet 20 mg PO BID Qty: 60 0RF Rx Instructions: MUST have follow-up with new provider for further refills multivitamin [Multiple Vitamins] Tablet 1 tab PO DAILY magnesium oxide 400 mg (241.3 mg magnesium) Tablet 400 mg PO BID omeprazole 20 mg Capsule,Delayed Release(Dr/Ec) 20 mg PO DAILY ferrous gluconate 324 mg (38 mg iron) Tablet 324 mg PO DAILY Vitamin D3 1 cap PO DAILY aspirin [Adult Aspirin Regimen] 81 mg tablet,delayed release (DR/EC) 81 mg PO DAILY ascorbic acid (vitamin C) [Vitamin C] 500 mg Tablet 500 mg PO DAILY nitroglycerin 0.4 mg Tablet, Sublingual 0.4 mg SUBLINGUAL Q5M PRN (Reason: Chest Pain) PreserVision AREDS [id number] Capsule 1 cap PO BID metoprolol tartrate 25 mg tablet 25 mg PO BID loperamide 2 mg capsule 2 mg PO QID PRN (Reason: Diarrhea) trazodone 50 mg tablet 50 mg PO BEDTIME tramadol 50 mg tablet 50 - 100 mg PO Q4H PRN (Reason: Pain) glipizide 5 mg tablet 5 mg PO BID Discontinued Levemir FlexTouch U100 Insulin 100 unit/mL (3 mL) Insulin Pen See Rx Instructions .ROUTE .COMPLEX Qty: 0 0RF Rx Instructions: 30 units subcutaneously q am and 15 units at night Discharge Orders: Discharge Order (Routine); Ordered 06/25/23 Ordered By: Mickey Manning Other Ambulatory Orders: DME: Oxygen (Order) Location: None Selected Ordered By: Mickey Manning Referrals: [facility] [Other] (You will resume your home health services with [facility]. If you have any questions please contact them at [phone].) Blanca Asencio MD [Physician] - 2 weeks Lillian Locke [Primary Care Provider] - 1-3 days Discharge Diet: Cardiac Discharge Activity: Resume usual activity Patient Instructions: Opioid Safety Activity Restrictions/Additional Instructions: - Please see cardiology in 1 to 2 weeks -Takes Lasix 40 mg once daily with potassium replacement therapy -Please see your primary care provider on Saturday for recheck kidney function and potassium Discharge Attestations Time Spent in Discharge Care*: greater than 30 min Quality Metrics Clinical Quality Measures [ No reported AMI, CVA or VTE this stay] Coding Level of Care Code 26826 Total time (in minutes) for Discharge: 45 Diagnoses Acute respiratory failure with hypoxia J96.01 Pulmonary edema J81.1 Congestive heart failure I50.9
[2023-06-25 11:43] LABS: Glucose Point of Care 231 mg/dL (70-110)
[2023-06-25] MEDS: insulin lispro 100 unit/1 mL SUBCUT (12:26)
--- NOTE | 2023-06-25 14:45 | PC.NURSE ---
Discharge Note Patient discharged to home via ambulance accompanied by ambulance personnel. Discharge instructions reviewed with patient and/or associate sales representative. Mobile pharmacy medications and/or prescriptions provided. Belongings/home medications returned.
== END 2023-06-25 14:45 | disposition home health service (06) | DRG 291 ==
LOC: ER 06-22 02:00 → CSU 06-22 02:12
PROVIDERS: Student in an Organized Health Care Education/Training Program; Admitting Provider Internal Medicine; Emergency Provider Emergency Medicine; PCP Registered Nurse; Visit Provider Family Medicine
DX: I11.0 Hypertensive heart disease with heart failure (principal); I50.33 Acute on chronic diastolic (congestive) heart failure; J96.01 Acute respiratory failure with hypoxia; M89.669 Osteopathy after poliomyelitis, unspecified lower leg; B91 Sequelae of poliomyelitis; I48.91 Unspecified atrial fibrillation; E78.5 Hyperlipidemia, unspecified; K21.9 Gastro-esophageal reflux disease without esophagitis; Z79.01 Long term (current) use of anticoagulants; Z79.82 Long term (current) use of aspirin; Z79.891 Long term (current) use of opiate analgesic; Z99.3 Dependence on wheelchair
CPT/HCPCS: 36415; 36416; 36600; 51702; 71045; 80048; 80053; 82805; 82962; 83605; 83735; 83880; 84484; 85025; 85610; 87040; 87426; 93005; 93306; 94664; 94760; 96372; 96374; 96376; 97161; 97530; 99285; J1815; J1940; J2405; J3490

== ENCOUNTER → 2023-07-15 11:50 | Outpatient (BNVA) | payer MEDICARE, MEDICAID, SELFPAY | PROVIDERS: PCP Registered Nurse; Visit Provider Internal Medicine Cardiovascular Disease | DX: I11.0 Hypertensive heart disease with heart failure (principal); I50.9 Heart failure, unspecified; I48.3 Typical atrial flutter; Z79.01 Long term (current) use of anticoagulants; Z79.82 Long term (current) use of aspirin; E11.9 Type 2 diabetes mellitus without complications; Z95.2 Presence of prosthetic heart valve; Z79.4 Long term (current) use of insulin | CPT/HCPCS: 99214 ==

== ENCOUNTER 2023-07-30 17:16 | Observation (INO) | payer MEDICARE, MEDICAID, SELFPAY ==
[2023-07-30 17:22] VITALS: BP 135/61; PULSE 54; RESP 18; TEMP 36.8; O2SAT 95
--- NOTE | 2023-07-30 17:29 | ECG_ITS ---
[facility] Test Date: 2023-07-30 Pat Name: Renae Padilla Department: Room: Gender: Female Emergency Department Clinician: : [id number] Requested By: Natalio Street Order Number: [id number] Irene MD: Blanca Asencio M.D. Measurements Intervals [place] Rate: 50 P: 0 NE: 0 QRS: 192 QRSD: 179 T: -15 QT: 499 QTc: 458 Interpretive Statements UNCERTAIN REGULAR RHYTHM RIGHT AXIS DEVIATION [QRS AXIS > 100] RIGHT BUNDLE BRANCH BLOCK SEPTAL MYOCARDIAL INFARCTION , OF INDETERMINATE AGE [40+ ms Q WAVE IN V1/V2] Compared to ECG 06/22/2023 05:04:45 Right-axis deviation now present Right bundle-branch block now present Left-axis deviation no longer present Right ventricular hypertrophy no longer present Incomplete right bundle-branch block no longer present T-wave abnormality no longer present Electronically Signed On 07-31-2023 19:41:18 CDT by Blanca Asencio M.D. [id number]
--- NOTE | 2023-07-30 17:31 | ED_ITS ---
Documented by User: Natalio Lane DO 07/31/23 06:31 HPI - Abdominal Pain General: Chief Complaint: Abdominal Pain Stated Complaint: Low HR/ Nausea Time Seen by Provider: 07/30/23 17:28 Source: patient Mode of arrival: EMS History of Present Illness: 73-year-old female presents emergency room with complaint of abdominal pain. This began after she got up to make herself a cup of coffee she began not feeling well and got progressively worse. She localizes the pain supraumbilical. She denies dysuria urgency or frequency. When EMS arrived they found her with a heart rate of [address] patient on the gurney loaded her into the ambulance her heart rate was up to 46. She has a history of A-fib she is on metoprolol no recent dose changes additionally she is on Eliquis. She denies any chest pain or shortness of breath at this time. She has a history of aortic stenosis with previous aortic valve replacement congestive heart failure, lower extremity deficits secondary to polio as a child MD elicited complaint: abdominal pain Onset (ago): minute(s) Pain Consistency: constant Location: Periumbilical Severity: moderate Quality: cramping Exacerbating factors: nothing Relieving factors: nothing Associated Symptoms: Reports GI cramping and nausea; Denies change in stool character, chills, coffee ground emesis, constipation, diarrhea, dyspepsia, dysuria, fever(s) and vomiting Review of Systems Const: Reports: fatigue and malaise; Denies: fever(s) or chills Card: Reports: palpitations; Denies: chest pain, edema or swelling of feet/ankles Resp: Denies: dyspnea GI: Reports: abdominal pain, nausea and GI cramping; Denies: vomiting, coffee ground emesis, diarrhea, constipation or change in stool character : Denies: dysuria, urinary frequency or urinary urgency Musc: Denies: neck pain or back pain Skin/Breast: Denies: rash PFSH ED PFSH: Medical History Atrial flutter Diabetes Essential hypertension Hyperlipidemia Polio osteopathy of lower leg Surgical History H/O aortic valve replacement History of aortic valve replacement with bioprosthetic valve bovine valve 10/13/2013 at [facility] History of cholecystectomy History of eye surgery History of foot surgery History of shoulder surgery History of surgery on arm Family History Mother CAD (coronary artery disease) Social History Smoking and tobacco/nicotine status: never used tobacco/nicotine Alcohol intake: never Substance/Drug Use: never Additional social history: Has home health care, electric wheelchair Lives independently: Yes Household members: none Housing: House Physical Exam Const: GENERAL APPEARANCE: cooperative and comfortable ORIENTATI ON/CONSCIOUSNESS: Yes awake, Yes oriented to person, Yes oriented to place and Yes oriented to time HENMT: COMMON NORMALS: normocephalic, atraumatic and hearing grossly normal bilaterally HEAD & SCALP: normocephalic and atraumatic Resp: COMMON NORMALS: normal respiratory effort, No retractions, No use of accessory muscles and clear to auscultation bilaterally AUSCULTATION: clear to auscultation bilaterally Cardio: COMMON NORMALS: regular rate, regular rhythm and No murmurs present (Cardio) RATE: regular rate RHYTHM: regular rhythm GI: COMMON NORMALS: Soft to palpation and No hepatosplenomegaly present AUSCULTATION: Yes normoactive bowel sounds PALPATION: Yes Soft to palpation, Yes Tenderness to palpation present (GI) (Supraumbilical local into the epigastric area), No Guarding due to palpation present (GI) and Yes No hepatosplenomegaly present Extremity: COMMON NORMALS: normal to inspection, capillary refill normal, no clubbing, cyanosis or edema, no calf tenderness and no pedal edema Neuro: SENSORIUM/ORIENTATION: Yes oriented to person, Yes oriented to place and Yes oriented to time Skin: COMMON NORMALS: no rashes or lesions noted GENERAL SKIN EXAM: no rashes or lesions noted Course Vital Signs: Vital signs: Vital Signs Temperature 98 F 07/31/23 04:00 Pulse Rate 57 L 07/31/23 04:00 Respiratory Rate 16 07/31/23 04:00 Blood Pressure 98/41 07/31/23 04:00 Pulse Oximetry 90 07/31/23 04:00 Oxygen Delivery Me thod Room Air 07/30/23 23:05 Oxygen Flow Rate 2 07/30/23 17:22 MDM - Abdominal Pain Medical Decision Making Labs and CT pending. Care signed out to Dr. Newsome at change of shift. See final notes for diagnosis and disposition. I took patient over from Dr. Stone she been complaining of some abdominal pain she is hyperkalemic here she is on potassium replacement she has no signs of acute renal failure or injury believe her hyper-K is likely from her supplementation. She does appear to have some pleural effusions on chest x-ray will give IV antibiotics it could be from CHF as well I spoke to the hospitalist will admit at this time. Lab Data 07/30/23 17:48 07/31/23 00:11 Labs/Radiology: Radiology Impressions Abdomen/Pelvis CT 07/30/23 17:41 IMPRESSION: 1. Nonspecific right upper abdomen inflammatory changes. Correlate for evidence of acute pancreatitis. 2. Urinary bladder wall thickening may be on the basis of underdistention or cystitis. 3. Cirrhotic liver morphology. 4. Mild ascites. 5. Moderate right pleural effusion with associated compressive atelectasis. 6. Additional chronic and incidental findings as above, to include heavy atherosclerosis, colonic diverticulosis, fibroid uterus, and marked muscular atrophy. Chest X-Ray 07/30/23 20:32 IMPRESSION: 1. Moderate right pleural effusion and bilateral atelectasis. 2. Stable cardiomegaly. Laboratory Results WBC 5.98 10^3/uL (3.29-11.43) 07/30/23 17:48 RBC 3.34 10^6/uL (3.85-5.65) L 07/30/23 17:48 Hgb 9.80 g/dL (11.27-16.99) L 07/30/23 17:48 Hct 32.3 % (36-47) L 07/30/23 17:48 MCV 96.7 fl (85-98) 07/30/23 17:48 MCH 29.3 pg (27-33) 07/30/23 17:48 MCHC 30.3 g/dL (30-55) 07/30/23 17:48 RDW 14.1 % (12.1-15.1) 07/30/23 17:48 Plt Count 234 10^3/cmm (157-399) 07/30/23 17:48 MPV 10.6 fL (7.4-10.4) H 07/30/23 17:48 Neut % (Auto) 76.2 % 07/30/23 17:48 Lymph % (Auto) 14.5 % 07/30/23 17:48 Calvert % (Auto) 7.2 % 07/30/23 17:48 Eos % (Auto) 1.2 % 07/30/23 17:48 Baso % (Auto) 0.7 % 07/30/23 17:48 Neut # (Auto) 4.56 10^3/uL (1.8-7.7) 07/30/23 17:48 Lymph # (Auto) 0.9 10^3/uL (0.8-4.8) 07/30/23 17:48 Calvert # (Auto) 0.4 10^3/uL (0.2-0.9) 07/30/23 17:48 Eos # (Auto) 0.1 10^3/uL (0.0-0.8) 07/30/23 17:48 Baso # (Auto) 0.0 10^3/uL (0.0-0.1) 07/30/23 17:48 Nucleated RBC % (auto) 0 % 07/30/23 17:48 Nucleated RBCs # 0.0 /100WBC 07/30/23 17:48 Sodium 134 mmol/L (136-145) L 07/30/23 17:48 Potassium 6.9 mmol/L (3.5-5.1) H* 07/30/23 19:30 Chloride 101 mmol/L (98-107) 07/30/23 17:48 Carbon Dioxide 25 mmol/L (22-29) 07/30/23 17:48 Anion Gap 15.1 (5-19) 07/30/23 17:48 BUN 40 mg/dL (8-23) H 07/30/23 17:48 Creatinine 0.7 mg/dL (0.5-0.9) 07/30/23 17:48 GFR Calculation Not Reportable 07/30/23 17:48 Glucose 219 mg/dL (65-115) H 07/30/23 17:48 POC Glucose 173 mg/dL (70-110) H 07/30/23 20:24 Calculated Osmolality 294 mOsm/kg (285-295) 07/30/23 17:48 Calcium 9.5 mg/dL (8.5-10.5) 07/30/23 17:48 Total Bilirubin 0.2 mg/dL (0.15-1.2) 07/30/23 17:48 AST 27 U/L (0-32) 07/30/23 17:48 ALT 11 U/L (0-33) 07/30/23 17:48 Alkaline Phosphatase 39 U/L (35-105) 07/30/23 17:48 NT-Pro-B Natriuret Pep 9080 pg/mL (0-450) H 07/30/23 17:48 Total Protein 6.4 g/dL (6.6-8.7) L 07/30/23 17:48 Albumin 4.0 g/dL (3.5-5.2) 07/30/23 17:48 Globulin 2.4 g/dL (1.3-4.6) 07/30/23 17:48 Lipase 23 U/L (13-60) 07/30/23 17:48 TSH 3.95 uIU/mL (0.27-4.20) 07/30/23 17:48 Discharge Plan Discharge Patient Disposition: Admitted As Inpatient Admit Provider: Eryn Shah Clinical Impression: Acute hyperkalemia, CHF (congestive heart failure), Abdominal pain Condition: Stable Coding Level of Care Code ED Plumber Gasfitter for Chg Fwd Documented by User: Rachel Newsome MD 07/30/23 21:19 HPI - Abdominal Pain General: Chief Complaint: Abdominal Pain Stated Complaint: Low HR/ Nausea Time Seen by Provider: 07/30/23 17:28 PFSH ED PFSH: Medical History Atrial flutter Diabetes Essential hypertension Hyperlipidemia Polio osteopathy of lower leg Surgical History H/O aortic valve replacement History of aortic valve replacement with bioprosthetic valve bovine valve 10/13/2013 at [facility] History of cholecystectomy History of eye surgery History of foot surgery History of shoulder surgery History of surgery on arm Family History Mother CAD (coronary artery disease) Social History Smoking and tobacco/nicotine status: never used tobacco/nicotine Alcohol intake: never Substance/Drug Use: never Additional social history: Has home health care, electric wheelchair Lives independently: Yes Household members: none Housing: House Course Vital Signs: Vital signs: Vital Signs Temperature 98 F 07/31/23 04:00 Pulse Rate 57 L 07/31/23 04:00 Respiratory Rate 16 07/31/23 04:00 Blood Pressure 98/41 07/31/23 04:00 Pulse Oximetry 90 07/31/23 04:00 Oxygen Delivery Me thod Room Air 07/30/23 23:05 Oxygen Flow Rate 2 07/30/23 17:22 MDM - Abdominal Pain Medical Decision Making I took patient over from Dr. Stone she been complaining of some abdominal pain she is hyperkalemic here she is on potassium replacement she has no signs of acute renal failure or injury believe her hyper-K is likely from her supplementation. She does appear to have some pleural effusions on chest x-ray will give IV antibiotics it could be from CHF as well I spoke to the hospitalist will admit at this time. Medical Records I reviewed the patient's medical records. Lab Data I reviewed the patient's lab results. 07/30/23 17:48 07/31/23 00:11 Labs/Radiology: Radiology Impressions Abdomen/Pelvis CT 07/30/23 17:41 IMPRESSION: 1. Nonspecific right upper abdomen inflammatory changes. Correlate for evidence of acute pancreatitis. 2. Urinary bladder wall thickening may be on the basis of underdistention or cystitis. 3. Cirrhotic liver morphology. 4. Mild ascites. 5. Moderate right pleural effusion with associated compressive atelectasis. 6. Additional chronic and incidental findings as above, to include heavy atherosclerosis, colonic diverticulosis, fibroid uterus, and marked muscular atrophy. Chest X-Ray 07/30/23 20:32 IMPRESSION: 1. Moderate right pleural effusion and bilateral atelectasis. 2. Stable cardiomegaly. Laboratory Results WBC 5.98 10^3/uL (3.29-11.43) 07/30/23 17:48 RBC 3.34 10^6/uL (3.85-5.65) L 07/30/23 17:48 Hgb 9.80 g/dL (11.27-16.99) L 07/30/23 17:48 Hct 32.3 % (36-47) L 07/30/23 17:48 MCV 96.7 fl (85-98) 07/30/23 17:48 MCH 29.3 pg (27-33) 07/30/23 17:48 MCHC 30.3 g/dL (30-55) 07/30/23 17:48 RDW 14.1 % (12.1-15.1) 07/30/23 17:48 Plt Count 234 10^3/cmm (157-399) 07/30/23 17:48 MPV 10.6 fL (7.4-10.4) H 07/30/23 17:48 Neut % (Auto) 76.2 % 07/30/23 17:48 Lymph % (Auto) 14.5 % 07/30/23 17:48 Calvert % (Auto) 7.2 % 07/30/23 17:48 Eos % (Auto) 1.2 % 07/30/23 17:48 Baso % (Auto) 0.7 % 07/30/23 17:48 Neut # (Auto) 4.56 10^3/uL (1.8-7.7) 07/30/23 17:48 Lymph # (Auto) 0.9 10^3/uL (0.8-4.8) 07/30/23 17:48 Calvert # (Auto) 0.4 10^3/uL (0.2-0.9) 07/30/23 17:48 Eos # (Auto) 0.1 10^3/uL (0.0-0.8) 07/30/23 17:48 Baso # (Auto) 0.0 10^3/uL (0.0-0.1) 07/30/23 17:48 Nucleated RBC % (auto) 0 % 07/30/23 17:48 Nucleated RBCs # 0.0 /100WBC 07/30/23 17:48 Sodium 134 mmol/L (136-145) L 07/30/23 17:48 Potassium 6.9 mmol/L (3.5-5.1) H* 07/30/23 19:30 Chloride 101 mmol/L (98-107) 07/30/23 17:48 Carbon Dioxide 25 mmol/L (22-29) 07/30/23 17:48 Anion Gap 15.1 (5-19) 07/30/23 17:48 BUN 40 mg/dL (8-23) H 07/30/23 17:48 Creatinine 0.7 mg/dL (0.5-0.9) 07/30/23 17:48 GFR Calculation Not Reportable 07/30/23 17:48 Glucose 219 mg/dL (65-115) H 07/30/23 17:48 POC Glucose 173 mg/dL (70-110) H 07/30/23 20:24 Calculated Osmolality 294 mOsm/kg (285-295) 07/30/23 17:48 Calcium 9.5 mg/dL (8.5-10.5) 07/30/23 17:48 Total Bilirubin 0.2 mg/dL (0.15-1.2) 07/30/23 17:48 AST 27 U/L (0-32) 07/30/23 17:48 ALT 11 U/L (0-33) 07/30/23 17:48 Alkaline Phosphatase 39 U/L (35-105) 07/30/23 17:48 NT-Pro-B Natriuret Pep 9080 pg/mL (0-450) H 07/30/23 17:48 Total Protein 6.4 g/dL (6.6-8.7) L 07/30/23 17:48 Albumin 4.0 g/dL (3.5-5.2) 07/30/23 17:48 Globulin 2.4 g/dL (1.3-4.6) 07/30/23 17:48 Lipase 23 U/L (13-60) 07/30/23 17:48 TSH 3.95 uIU/mL (0.27-4.20) 07/30/23 17:48 All radiology interpretation(s) finalized by discharge Discharge Plan Discharge Patient Disposition: Admitted As Inpatient Admit Provider: Eryn Shah Clinical Impression: Acute hyperkalemia, CHF (congestive heart failure), Abdominal pain Condition: Stable Coding Level of Care Code ED Plumber Gasfitter for Ashley Chavira
--- NOTE | 2023-07-30 17:41 | CTR_ITS ---
PROCEDURE INFORMATION: Exam: CT Abdomen And Pelvis Without Contrast Exam date and time: 07/30/2023 7:03 PM Age: 73 years old Clinical indication: Abdominal pain; Generalized TECHNIQUE: Imaging protocol: Computed tomography of the abdomen and pelvis without contrast. Radiation optimization: All CT scans at this facility use at least one of these dose optimization techniques: automated exposure control; mA and/or kV adjustment per patient size (includes targeted exams where dose is matched to clinical indication); or iterative reconstruction. REPORTING DATA: Count of CT and Cardiac NM exams in prior 12 months: This patient has received 0 known CTs and 0 known cardiac nuclear medicine studies in the 12 months prior to the current study. COMPARISON: CT chest abdpel w/*[id number] 06/16/2021 8:48 PM RADIATION DOSE METRICS: Total DLP (mGy-cm): 852 FINDINGS: Lungs: Right lower lobe compressive atelectasis platelike subsegmental atelectasis versus scarring at the right middle lobe and lingula. Pleural spaces: Moderate right pleural effusion. Liver: Nodular liver contour without mass. Gallbladder and bile ducts: Gallbladder not visualized, suspect prior cholecystectomy. No biliary ductal dilatation. Pancreas: Diffuse pancreatic atrophy. Spleen: Normal. Adrenal glands: Normal. No mass. Kidneys and ureters: Mild symmetric perirenal fat stranding. Otherwise unremarkable. Stomach and bowel: No bowel dilatation to suggest obstruction. Colonic diverticulosis without findings of diverticulitis. Appendix: No evidence of appendicitis. Intraperitoneal space: Mild free pelvic fluid. No free air or well organized fluid collection. Mild right upper abdominal free fluid and fat stranding. Vasculature: Heavy systemic atherosclerotic calcification without abdominal aortic aneurysm. Lymph nodes: No enlarged lymph nodes. Urinary bladder: Underdistended urinary bladder with circumferential wall thickening. Reproductive: Multiple calcified uterine fibroids. Bones/joints: No acute fracture. Degenerative changes along the spine. Soft tissues: Diffuse muscular atrophy. Dependent edema greatest at the bilateral buttocks and imaged upper thighs. Mild anterior abdominal wall subcutaneous fat stranding, more localized on the left may be on the basis of recent injection. Asymmetric left presacral soft tissue density stable from June 2021 with some fatty striations compatible with muscle. CT/CT abdomen pelvis wo con [id number] IMPRESSION: 1. Nonspecific right upper abdomen inflammatory changes. Correlate for evidence of acute pancreatitis. 2. Urinary bladder wall thickening may be on the basis of underdistention or cystitis. 3. Cirrhotic liver morphology. 4. Mild ascites. 5. Moderate right pleural effusion with associated compressive atelectasis. 6. Additional chronic and incidental findings as above, to include heavy atherosclerosis, colonic diverticulosis, fibroid uterus, and marked muscular atrophy.
[2023-07-30 18:33] LABS: Basophils % 0.7 %; Eosinophils # 0.1 10^3/uL (0.0-0.8); Eosinophils % 1.2 %; Hematocrit 32.3 % (36-47); Lymphocytes # 0.9 10^3/uL (0.8-4.8); Lymphocytes % 14.5 %; Mean Corpuscular HGB Conc 30.3 g/dL (30-55); Mean Corpuscular Hemoglobin 29.3 pg (27-33); Mean Corpuscular Volume 96.7 fl (85-98); Mean Platelet Volume 10.6 fL (7.4-10.4); Monocytes # 0.4 10^3/uL (0.2-0.9); Monocytes % 7.2 %; Neutrophils # 4.56 10^3/uL (1.8-7.7); Neutrophils % 76.2 %; Nucleated Red Blood Cells % 0 %; Platelet Count 234 10^3/cmm (157-399); Red Blood Count 3.34 10^6/uL (3.85-5.65); Red Cell Distribution Width 14.1 % (12.1-15.1); White Blood Count 5.98 10^3/uL (3.29-11.43)
[2023-07-30 18:54] VITALS: BP 100/62; PULSE 51; RESP 16; O2SAT 94
[2023-07-30 19:13] LABS: Alanine Aminotransferase 11 U/L (0-33); Alkaline Phosphatase 39 U/L (35-105); Anion Gap 15.1 (5-19); Aspartate Amino Transferase 27 U/L (0-32); Blood Urea Nitrogen 40 mg/dL (8-23); Calcium 9.5 mg/dL (8.5-10.5); Carbon Dioxide 25 mmol/L (22-29); Chloride 101 mmol/L (98-107); Globulin 2.4 g/dL (1.3-4.6); Glucose 219 mg/dL (65-115); Lipase 23 U/L (13-60); Osmolality Calculated 294 mOsm/kg (285-295); Sodium 134 mmol/L (136-145); Thyroid Stimulating Hormone 3.95 uIU/mL (0.27-4.20); Total Bilirubin 0.2 mg/dL (0.15-1.2); Total Protein 6.4 g/dL (6.6-8.7)
[2023-07-30 19:20] LABS: Potassium 7.1 mmol/L (3.5-5.1)
[2023-07-30 19:33] VITALS: BP 123/58; PULSE 53; RESP 16; O2SAT 92
[2023-07-30 20:11] VITALS: BP 125/68; PULSE 58; RESP 16; O2SAT 92
[2023-07-30 20:14] LABS: Potassium 6.9 mmol/L (3.5-5.1)
[2023-07-30] MEDS: dextrose 50% syringe 50 mL IVP (20:24)
[2023-07-30] MEDS: calcium gluconate 0.1 gm/mL 10% SDV 10mL 1 GM IVP (20:24)
--- NOTE | 2023-07-30 20:32 | XRR_ITS ---
PROCEDURE INFORMATION: Exam: XR Chest Exam date and time: 07/30/2023 9:03 PM Age: 73 years old Clinical indication: Shortness of breath; Prior surgery; Surgery date: 6+ months; Surgery type: Aortic valve; Additional info: SOB TECHNIQUE: Imaging protocol: Radiologic exam of the chest. Views: 1 view. COMPARISON: 1. CR (CHEST, ) 06/21/2023 11:50 PM 2. CR XR chest 1V portable [id number] 09/22/2021 12:42 PM FINDINGS: Lungs: Bibasilar atelectasis. Left mid lung zone atelectasis versus scarring, chronically stable. No confluent consolidation. Pleural spaces: Moderate right pleural effusion. No pneumothorax. Heart/Mediastinum: Stable widening of the cardiomediastinal silhouette. Prosthetic aortic valve. Bones/joints: Prior median sternotomy. Degenerative changes along the spine and shoulders with left glenohumeral joint screw fixed fusion. XR/XR chest 1V portable [id number] IMPRESSION: 1. Moderate right pleural effusion and bilateral atelectasis. 2. Stable cardiomegaly.
[2023-07-30] MEDS: insulin regular-human 100 units/1 mL 10 UNIT IVP (20:34)
[2023-07-30 20:47] LABS: Glucose Point of Care 173 mg/dL (70-110)
[2023-07-30 21:09] LABS: NT Pro B Type Natriuretic Pept 9080 pg/mL (0-450)
[2023-07-30] MEDS: cefTRIAXone 1,000 MG in sodium chloride 0.9% (plus) 50 ML 100 MG IV (21:29)
[2023-07-30 21:31] VITALS: BP 125/68; PULSE 58; RESP 16; TEMP 36.8; O2SAT 92
[2023-07-30] MEDS: azithromycin 500 MG in sodium chloride 0.9% 250 ML 250 MG IV (22:22)
[2023-07-31] VITALS (10 sets, daily range): BP systolic 98–136; BP diastolic 41–78; PULSE 55–65; RESP 14–18; TEMP 36.3–36.8; O2SAT 90–96
[2023-07-31 00:37] LABS: Potassium 6.1 mmol/L (3.5-5.1)
[2023-07-31] MEDS: enoxaparin 30 mg/0.3 mL Syringe SUBCUT (03:19)
[2023-07-31] MEDS: famotidine 20 mg/2 mL INJ IVP ×2 (03:20→14:36)
--- NOTE | 2023-07-31 05:48 | PM.HP ---
Providers/Chief Complaint Admitting Physician: Eryn Shah MD Primary Care Provider: Lillian Locke Chief Complaint: Low HR/ Nausea History of Present Illness Renae Padilla is a 73 year old female with history of poliomyelitis, bedbound Congestive heart failure: Essential hypertension: atrial fibrillation on Eliquis Diabetes: H/O aortic valve replacement: Was brought in by EMS for complaint of severe abdominal pain that started this afternoon. She describes pain as 10/10, crampy periumbilical no aggravating relieving factors and associated with nausea but no vomiting. She denies any history of fever cold cough chest pain diarrhea or urinary complaints. She reports eating a homemade sandwich with castaneda and vegetables. On arrival in ER her pain resolved and she did not had any nausea or vomiting. But she was found to have potassium of 7.1. Review of Systems Narrative: As per HPI Medications/Allergies Home Medications Medication Instructions Recorded Confirmed Last Taken Type Vitamin D3 1 cap PO DAILY 11/11/19 07/15/23 06/14/21 History aspirin 81 mg tablet,delayed 81 mg PO DAILY 11/11/19 07/15/23 06/14/21 History release (Adult Aspirin Regimen) ferrous gluconate 324 mg (38 mg 324 mg PO DAILY 11/11/19 07/15/23 06/14/21 History iron) tablet magnesium oxide 400 mg (241.3 mg 400 mg PO BID 11/11/19 07/15/23 06/14/21 History magnesium) tablet multivitamin (Multiple Vitamins 1 tab PO DAILY 11/11/19 07/15/23 06/14/21 History tablet) omeprazole 20 mg capsule,delayed 20 mg PO DAILY 11/11/19 07/15/23 06/14/21 History release ascorbic acid (vitamin C) 500 mg 500 mg PO DAILY 06/16/21 07/15/23 06/14/21 History tablet (Vitamin C) metoprolol tartrate 25 mg tablet 25 mg PO BID 06/16/21 07/15/23 06/14/21 History vitamins A,C,M-vbjy-lwfcil 4,296 1 cap PO BID 06/16/21 07/15/23 06/14/21 History mcg-226 mg-90 mg capsule (PreserVision AREDS) apixaban 5 mg tablet (Eliquis) 5 mg PO BID #30 tabs 05/28/22 07/15/23 Unknown Rx lisinopril 20 mg tablet 20 mg PO BID #60 tabs 06/27/22 07/15/23 Unknown Rx glipizide 5 mg tablet 5 mg PO BID 06/22/23 07/15/23 Unknown History loperamide 2 mg capsule 2 mg PO QID PRN Diarrhea 06/22/23 07/15/23 Unknown History tramadol 50 mg tablet 50 - 100 mg PO Q4H PRN Pain 06/22/23 07/15/23 Unknown History furosemide 40 mg tablet 40 mg PO DAILY@0800 30 days #90 07/15/23 07/15/23 Unknown Rx tabs potassium chloride 20 mEq 20 meq PO Q24H 30 days #90 tabs 07/15/23 07/15/23 Unknown Rx tablet,extended release(part/cryst) (Klor-Con M) trazodone 50 mg tablet 50 mg PO BEDTIME #90 tabs 07/15/23 07/15/23 Unknown Rx Allergies Allergy/AdvReac Type Severity Reaction Status Date / Time fish oil Allergy Unknown Verified 07/15/23 11:58 PFSH Acute PFSH: Medical History Atrial flutter Diabetes Essential hypertension Hyperlipidemia Polio osteopathy of lower leg Surgical History H/O aortic valve replacement History of aortic valve replacement with bioprosthetic valve bovine valve 10/13/2013 at [facility] History of cholecystectomy History of eye surgery History of foot surgery History of shoulder surgery History of surgery on arm Family History Mother CAD (coronary artery disease) Social History Smoking and tobacco/nicotine status: never used tobacco/nicotine Alcohol intake: never Substance/Drug Use: never Additional social history: Has home health care, electric wheelchair Lives independently: Yes Household members: none Housing: House Vitals/I&O/Wt Last Vital Signs Temp 98 F 07/31/23 04:00 Pulse 57 L 07/31/23 04:00 Resp 16 07/31/23 04:00 BP 98/41 07/31/23 04:00 Pulse Ox 90 07/31/23 04:00 O2 Del Method Room Air 07/30/23 23:05 O2 Flow Rate 2 07/30/23 17:22 07/30/23 07/30/23 07/31/23 14:59 22:59 06:59 Intake Total 50 / 50 250 / 300 Balance 50 / 50 250 / 300 Physical Exam Narrative: She is alert awake oriented x3 not in acute distress Chest was clear to auscultation bilaterally Cardiovascular normal heart sounds no murmurs Abdomen soft nontender nondistended normal bowel sounds Extremities 1+ bilateral lower extremity pitting edema present. Data 07/30/23 17:48 07/31/23 00:11 Micro: Microbiology 07/30/23 20:53 Blood Culture - Preliminary Blood SPECIMEN COLLECTED 07/30/23 20:53 Blood Culture - Preliminary Blood SPECIMEN COLLECTED CT Abd/Pel: Radiologist's impression: IMPRESSION: 1. ? Nonspecific right upper abdomen inflammatory changes. Correlate for evidence of acute pancreatitis. 2. ? Urinary bladder wall thickening may be on the basis of underdistention or cystitis. 3. ? Cirrhotic liver morphology. 4. ? Mild ascites. 5. ? Moderate right pleural effusion with associated compressive atelectasis. 6. ? Additional chronic and incidental findings as above, to include heavy atherosclerosis, colonic diverticulosis, fibroid uterus, and marked muscular atrophy. ? CXR: Radiologist's impression: IMPRESSION: 1. ? Moderate right pleural effusion and bilateral atelectasis. 2. ? Stable cardiomegaly. ? EKG 1: My Interpretation: A-fib at 50 bpm Right axis deviation Right bundle branch block No acute ST-T changes A&P Assessment and plan (1) Acute hyperkalemia: Plan 73 year old female with history of poliomyelitis, bedbound Congestive heart failure: Essential hypertension: atrial fibrillation on Eliquis Diabetes: H/O aortic valve replacement: Was brought in by EMS for complaint of severe abdominal pain that started this afternoon associated with nausea but no vomiting likely secondary to GERD versus acute gastroenteritis. Also found to have hyperkalemia with potassium of 7.[address] consistent with some inflammatory changes in pancreas , serum lipase was 23 and pain resolved on arrival to ER. Hence no further intervention needed. Hyperkalemia likely secondary to medication induced. She is on p.o. potassium 20 mEq daily along with Lasix 40 mg daily. She is hemodynamically stable with no EKG changes. Repeat potassium was 6.9 and 6.1. Follow-up potassium this a.m.. Hold p.o. potassium for now. Resume home medications IV Pepcid 20 mg twice a day She is on Eliquis for atrial fibrillation, no further need for DVT prophylaxis She is full code as per discussion. Attestations Medical Necessity Statement*: She needs less than 2 days of continued hospitalization. She came in with abdominal pain which resolved on admission but was found to have hyperkalemia secondary to medication induced, will hold off p.o. potassium and monitor serum potassium. There were no new EKG changes. Time Spent in Patient Care: 30 minutes Coding Level of Care Code Acute Code for Chg Fwd Diagnoses Acute hyperkalemia E87.5 Time Spent (min) 30
[2023-07-31 06:54] LABS: Alanine Aminotransferase 10 U/L (0-33); Albumin Level 3.6 g/dL (3.5-5.2); Alkaline Phosphatase 33 U/L (35-105); Aspartate Amino Transferase 23 U/L (0-32); Blood Urea Nitrogen 33 mg/dL (8-23); Calcium 9.1 mg/dL (8.5-10.5); Carbon Dioxide 23 mmol/L (22-29); Chloride 104 mmol/L (98-107); Globulin 1.9 g/dL (1.3-4.6); Glucose 96 mg/dL (65-115); Osmolality Calculated 289 mOsm/kg (285-295); Sodium 136 mmol/L (136-145); Total Bilirubin 0.2 mg/dL (0.15-1.2); Total Protein 5.5 g/dL (6.6-8.7)
[2023-07-31 07:08] LABS: Anion Gap 14.5 (5-19); Potassium 5.5 mmol/L (3.5-5.1)
[2023-07-31] MEDS: lisinopril 20 mg Tablet PO (08:06)
[2023-07-31] MEDS: FUROsemide 40 mg Tablet PO (08:06)
[2023-07-31] MEDS: magnesium oxide 400 mg tablet PO ×2 (08:06→17:08)
[2023-07-31] MEDS: metoprolol tartrate 25 mg Tablet PO (08:06)
[2023-07-31] MEDS: apixaban 5 mg Tablet PO ×2 (08:06→17:08)
[2023-07-31] MEDS: aspirin 81 mg EC Tablet PO (08:06)
--- NOTE | 2023-07-31 08:57 | PC.PHAR ---
Addendum entered by Nella Mckeon 07/31/23 09:11: DISCHARGE MEDICATIONS 06/25/23. Original Note: HOME HEALTH NURSE SETS MEDICATIONS UP ON A WEEKLY BASIS. MEDICATIONS ARE VERIFIED THE SAME MEDICATIONS ON DISCHARGE PAPERWORK 06/20/23
--- NOTE | 2023-07-31 15:14 | ECG_ITS ---
[facility] Test Date: 2023-07-31 Pat Name: Renae Padilla Department: Room: 253 Gender: Female Credit Risk Manager: : 1950 Requested By: Renea Canales Order Number: [id number] Irene MD: Blanca Asencio M.D. Measurements Intervals [place] Rate: 58 P: 0 WA: 0 QRS: 235 QRSD: 164 T: -8 QT: 504 QTc: 495 Interpretive Statements UNCERTAIN REGULAR RHYTHM INDETERMINATE AXIS RIGHT BUNDLE BRANCH BLOCK [120+ ms QRS DURATION, UPRIGHT V1, 40+ ms S IN I/aVL/V4/V5/V6] POSSIBLE SEPTAL MYOCARDIAL INFARCTION , PROBABLY OLD [30 ms Q WAVE IN V1/V2] Compared to ECG 07/30/2023 17:37:49 Indeterminate axis now present Right-axis deviation no longer present Myocardial infarct finding still present Electronically Signed On 07-31-2023 19:37:45 CDT by Blanca Asencio M.D. [id number]
--- NOTE | 2023-07-31 15:16 | PM.MISC ---
Miscellaneous Note Purpose of Documentation: Overnight labs and H&P reviewed. Potassium was improving at 5.5 this morning. We will repeat another one today. Patient continues to complain of nausea though has not had any episodes of vomiting. She denies any diarrhea. Will evaluate with EKG and troponin series is concerned about potentially atypical presentation of angina as a possibility in this elderly diabetic patient. Hypervolemic on clinical exam. Lasix 20 mg IV now.
[2023-07-31] MEDS: FUROsemide 10 mg/mL SDV 2mL 20 MG IVP (15:54)
[2023-07-31 16:00] LABS: Troponin(5th) Baseline 35 ng/L (0-10)
[2023-07-31 16:33] LABS: Alanine Aminotransferase 10 U/L (0-33); Albumin Level 3.8 g/dL (3.5-5.2); Alkaline Phosphatase 38 U/L (35-105); Anion Gap 14.9 (5-19); Aspartate Amino Transferase 22 U/L (0-32); Blood Urea Nitrogen 32 mg/dL (8-23); Calcium 9.2 mg/dL (8.5-10.5); Carbon Dioxide 25 mmol/L (22-29); Chloride 100 mmol/L (98-107); Globulin 2.4 g/dL (1.3-4.6); Glucose 164 mg/dL (65-115); Osmolality Calculated 291 mOsm/kg (285-295); Potassium 4.9 mmol/L (3.5-5.1); Sodium 135 mmol/L (136-145); Total Bilirubin 0.2 mg/dL (0.15-1.2); Total Protein 6.2 g/dL (6.6-8.7)
[2023-07-31] MEDS: insulin lispro 100 unit/1 mL SUBCUT ×2 (17:08→21:04)
--- NOTE | 2023-07-31 17:14 | ECG_ITS ---
[facility] Test Date: 2023-07-31 Pat Name: Renae Padilla Department: Room: 253 Gender: Female Medical Policy Specialist: : 1950 Requested By: Renea Canales Order Number: [id number] Irene MD: Blanca Asencio M.D. Measurements Intervals [place] Rate: 65 P: 0 CT: 0 QRS: 230 QRSD: 168 T: -5 QT: 490 QTc: 510 Interpretive Statements UNCERTAIN REGULAR RHYTHM INDETERMINATE AXIS RIGHT BUNDLE BRANCH BLOCK [120+ ms QRS DURATION, UPRIGHT V1, 40+ ms S IN I/aVL/V4/V5/V6] Compared to ECG 07/31/2023 16:10:32 Myocardial infarct finding no longer present Electronically Signed On 07-31-2023 19:47:48 CDT by Blanca Asencio M.D. [id number]
[2023-07-31 18:44] LABS: Troponin 5 2HR 34.52 ng/L (0-10)
[2023-07-31 18:47] LABS: Troponin 5 2HR Delta -0.48 ABS# (0-10)
--- NOTE | 2023-07-31 20:29 | ECG_ITS ---
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 Measurements Intervals [place] Rate: 55 P: -50 TN: 171 QRS: 193 QRSD: 158 T: -7 QT: 514 QTc: 494 Interpretive Statements SINUS BRADYCARDIA RIGHT AXIS DEVIATION [QRS AXIS > 100] RIGHT BUNDLE BRANCH BLOCK [120+ ms QRS DURATION, UPRIGHT V1, 40+ ms S IN I/aVL/V4/V5/V6] SEPTAL MYOCARDIAL INFARCTION , PROBABLY OLD [40+ ms Q WAVE IN V1/V2] Compared to ECG 07/31/2023 17:26:20 Right-axis deviation now present Myocardial infarct finding now present Indeterminate axis no longer present Electronically Signed On 08-02-2023 1:13:12 CDT by Blanca Asencio M.D. [id number]
[2023-07-31] MEDS: trazodone 50 mg Tablet PO (21:04)
[2023-07-31] MEDS: fenofibrate 145 mg Tablet PO (21:04)
[2023-07-31 21:25] LABS: Glucose Point of Care 317 mg/dL (70-110)
[2023-07-31 21:25] LABS: Glucose Point of Care 203 mg/dL (70-110)
[2023-08-01 03:48] VITALS: BP 99/67; PULSE 60; RESP 14; TEMP 36.6; O2SAT 94
[2023-08-01] MEDS: pantoprazole DR 40 mg Tablet PO (05:19)
[2023-08-01 05:29] LABS: Alanine Aminotransferase 11 U/L (0-33); Albumin Level 3.8 g/dL (3.5-5.2); Alkaline Phosphatase 38 U/L (35-105); Anion Gap 14.3 (5-19); Aspartate Amino Transferase 23 U/L (0-32); Blood Urea Nitrogen 28 mg/dL (8-23); Calcium 9.3 mg/dL (8.5-10.5); Carbon Dioxide 27 mmol/L (22-29); Chloride 102 mmol/L (98-107); Globulin 2.6 g/dL (1.3-4.6); Glucose 94 mg/dL (65-115); Osmolality Calculated 293 mOsm/kg (285-295); Potassium 4.3 mmol/L (3.5-5.1); Sodium 139 mmol/L (136-145); Total Bilirubin 0.3 mg/dL (0.15-1.2); Total Protein 6.4 g/dL (6.6-8.7)
[2023-08-01 05:46] VITALS: PULSE 64
[2023-08-01 06:40] LABS: Glucose Point of Care 152 mg/dL (70-110)
[2023-08-01 07:45] VITALS: BP 105/50; PULSE 72; RESP 16; TEMP 36.4; O2SAT 95
[2023-08-01] MEDS: apixaban 5 mg Tablet PO (08:23)
[2023-08-01] MEDS: aspirin 81 mg EC Tablet PO (08:23)
[2023-08-01] MEDS: FUROsemide 40 mg Tablet PO (08:23)
[2023-08-01] MEDS: metoprolol tartrate 25 mg Tablet PO (08:23)
[2023-08-01] MEDS: magnesium oxide 400 mg tablet PO (08:23)
[2023-08-01] MEDS: insulin lispro 100 unit/1 mL SUBCUT ×2 (08:23→11:37)
--- NOTE | 2023-08-01 10:14 | PC.CHAP ---
Pastoral Care Encounter/Spiritual Assessment Type of Contact [] Declined rental clerk tool and equipment visit [] Patient/Family/Request visit [] Outpatient visit [] Follow-up visit [] Physician referral [] Code/Alert [] Routine visit [] Staff referral [] Actively dying [] Patient sleeping [] Family support [] [] Out of room [] Palliative care [] [] Receiving care in room [] Pre-surgical visit [] Trauma [] Long length of stay [] ICU visit [x] Other: dismissed Relational/Emotional Strength [] Patient feels connected with others/family/visitors/staff [] Distress [] Loneliness/isolation [] Abandonment Spirituality of Patient [] Person of Shira [] Attends [employer] of their Shira [] Believes in Prayer [] Reads Bible or Protestant materials [] There are Spiritual issues to be addressed Premium Cancellation Clerk Interventions [] Prayer [] Active listening [] Non-anxious presence [] Spiritual/emotional support [] Crisis/trauma care [] Spiritual counseling [] Bereavement support [] Provided bereavement packet [] Provided Bible/devotional materials [] Provided toy/stuffed animal, coloring book to patient or family member [] Provided Communion [] Anointing/[place] [] Salvation [] Completed spiritual assessment [] Other: Impact on Illness or Injury [] Angry [] Fearful [] Anxious [] Often cries [] Exhaustion [] Unable to work [] Unable to attend sikh [] Unable to walk/stand [] Unable to read [] Unable to drive [] Unable to eat/drink [] Unable to sleep [] Unable to be with family [] Patient intubated [] Other: Summary dismissed Time spent with patient 5 mins
[2023-08-01 10:58] LABS: Glucose Point of Care 141 mg/dL (70-110)
[2023-08-01 11:24] VITALS: BP 148/65; PULSE 59; RESP 16; TEMP 36.7; O2SAT 94
--- NOTE | 2023-08-01 11:36 | P.DS_ITS ---
Discharge Providers Date of Admission: 07/31/23 02:29 Date of Discharge: August 01, 2023 Attending Provider at Admission: Eryn Shah MD Attending Provider at Discharge: Renea Canales MD Primary Care Provider: Lillian Locke Diagnoses at Discharge Discharge Diagnosis (1) Acute hyperkalemia: Status: Acute Reason for Visit Reason for Visit: Low HR/ Nausea Brief History: Renae Padilla is a 73 year old female with history of poliomyelitis, bedbound, congestive heart failure, essential hypertension, atrial fibrillation on Eliquis, diabetes, H/O aortic valve replacement, was brought in by EMS for complaint of severe abdominal pain that started this afternoon.? She describes pain as 10/10, crampy periumbilical no aggravating relieving factors and associated with nausea but no vomiting.? She denies any history of fever cold cough chest pain diarrhea or urinary complaints.? She reports eating a homemade sandwich with castaneda and vegetables. CT was consistent with some inflammatory changes in pancreas , serum lipase was 23 and pain resolved on arrival to ER, therefore pancreatitis appeared less likely. She was found to have hyperkalemia with K of ~7. Hyperkalemia likely secondary to medications including p.o. potassium 20 mEq daily and lisinopril. both have been discontinued at discharge with advice to repeat in one week with PCP. Her K improved with these interventions, he nausea resolved. She had no further abdominal pain. EKG and troponin series was checked to rule out atypical chest pain - trop series without significant delta, no recurrence of pain made ACS less likely. Physical Exam Narrative: General: No acute distress, AO x3 HEENT: PERRLA, pupils bilaterally equal and reactive, pallors not present Chest: Normal vesicular breath sounds, no added sounds, equal good air entry bilaterally CVS: S1-S2 regular, holosystolic murmur , no tachycardia, no gallops, no rubs Abdomen: Soft, nontender, no organomegaly, bowel sounds present Neuro: No focal deficits, no facial deformity, AO x3, power 5/5 in all limbs Discharge Data Studies Completed and Pending Completed Studies During Hospitalization Category Date Time Status CT abdomen pelvis wo con [id number] Stat Cat Scan 07/30/23 17:41 Completed CXRP [XR chest 1V portable [id number]] Stat Exams 07/30/23 20:32 Completed Pending at discharge Category Date Time Status Blood Culture Stat Lab 07/30/23 20:53 Results Radiology Impressions Abdomen/Pelvis CT 07/30/23 17:41 IMPRESSION: 1. Nonspecific right upper abdomen inflammatory changes. Correlate for evidence of acute pancreatitis. 2. Urinary bladder wall thickening may be on the basis of underdistention or cystitis. 3. Cirrhotic liver morphology. 4. Mild ascites. 5. Moderate right pleural effusion with associated compressive atelectasis. 6. Additional chronic and incidental findings as above, to include heavy atherosclerosis, colonic diverticulosis, fibroid uterus, and marked muscular atrophy. Chest X-Ray 07/30/23 20:32 IMPRESSION: 1. Moderate right pleural effusion and bilateral atelectasis. 2. Stable cardiomegaly. Laboratory Results WBC 5.98 10^3/uL (3.29-11.43) 07/30/23 17:48 RBC 3.34 10^6/uL (3.85-5.65) L 07/30/23 17:48 Hgb 9.80 g/dL (11.27-16.99) L 07/30/23 17:48 Hct 32.3 % (36-47) L 07/30/23 17:48 MCV 96.7 fl (85-98) 07/30/23 17:48 MCH 29.3 pg (27-33) 07/30/23 17:48 MCHC 30.3 g/dL (30-55) 07/30/23 17:48 RDW 14.1 % (12.1-15.1) 07/30/23 17:48 Plt Count 234 10^3/cmm (157-399) 07/30/23 17:48 MPV 10.6 fL (7.4-10.4) H 07/30/23 17:48 Neut % (Auto) 76.2 % 07/30/23 17:48 Lymph % (Auto) 14.5 % 07/30/23 17:48 [place] % (Auto) 7.2 % 07/30/23 17:48 Eos % (Auto) 1.2 % 07/30/23 17:48 Baso % (Auto) 0.7 % 07/30/23 17:48 Neut # (Auto) 4.56 10^3/uL (1.8-7.7) 07/30/23 17:48 Lymph # (Auto) 0.9 10^3/uL (0.8-4.8) 07/30/23 17:48 [place] # (Auto) 0.4 10^3/uL (0.2-0.9) 07/30/23 17:48 Eos # (Auto) 0.1 10^3/uL (0.0-0.8) 07/30/23 17:48 Baso # (Auto) 0.0 10^3/uL (0.0-0.1) 07/30/23 17:48 Nucleated RBC % (auto) 0 % 07/30/23 17:48 Nucleated RBCs # 0.0 /100WBC 07/30/23 17:48 Sodium 139 mmol/L (136-145) 08/01/23 04:23 Potassium 4.3 mmol/L (3.5-5.1) 08/01/23 04:23 Chloride 102 mmol/L (98-107) 08/01/23 04:23 Carbon Dioxide 27 mmol/L (22-29) 08/01/23 04:23 Anion Gap 14.3 (5-19) 08/01/23 04:23 BUN 28 mg/dL (8-23) H 08/01/23 04:23 Creatinine 0.5 mg/dL (0.5-0.9) 08/01/23 04:23 GFR Calculation Not Reportable 08/01/23 04:23 Glucose 94 mg/dL (65-115) 08/01/23 04:23 POC Glucose 141 mg/dL (70-110) H 08/01/23 10:55 Calculated Osmolality 293 mOsm/kg (285-295) 08/01/23 04:23 Calcium 9.3 mg/dL (8.5-10.5) 08/01/23 04:23 Total Bilirubin 0.3 mg/dL (0.15-1.2) 08/01/23 04:23 AST 23 U/L (0-32) 08/01/23 04:23 ALT 11 U/L (0-33) 08/01/23 04:23 Alkaline Phosphatase 38 U/L (35-105) 08/01/23 04:23 Troponin T Baseline 35 ng/L (0-10) H 07/31/23 15:29 Troponin T 120 Minute 34.52 ng/L (0-10) H 07/31/23 17:29 Delta Troponin T -0.48 ABS# (0-10) L 07/31/23 17:29 Troponin T Hi Sens 6Hr 33.40 ng/L (0-10) H 07/31/23 21:13 Troponin T Hi Sens 6Hr Delta -1.60 ng/L (0-12) L 07/31/23 21:13 NT-Pro-B Natriuret Pep 9080 pg/mL (0-450) H 07/30/23 17:48 Total Protein 6.4 g/dL (6.6-8.7) L 08/01/23 04:23 Albumin 3.8 g/dL (3.5-5.2) 08/01/23 04:23 Globulin 2.6 g/dL (1.3-4.6) 08/01/23 04:23 Lipase 23 U/L (13-60) 07/30/23 17:48 TSH 3.95 uIU/mL (0.27-4.20) 07/30/23 17:[address] Abd/Pel: Radiologist's impression: CT/CT abdomen pelvis wo con [id number] IMPRESSION: 1. ? Nonspecific right upper abdomen inflammatory changes. Correlate for evidence of acute pancreatitis. 2. ? Urinary bladder wall thickening may be on the basis of underdistention or cystitis. 3. ? Cirrhotic liver morphology. 4. ? Mild ascites. 5. ? Moderate right pleural effusion with associated compressive atelectasis. 6. ? Additional chronic and incidental findings as above, to include heavy atherosclerosis, colonic diverticulosis, fibroid uterus, and marked muscular atrophy. Vitals Last Vital Signs Temp 98.0 F 08/01/23 11:24 Pulse 59 L 08/01/23 11:24 Resp 16 08/01/23 11:24 BP 148/65 08/01/23 11:24 Pulse Ox 94 08/01/23 11:24 O2 Del Method Room Air 08/01/23 11:24 O2 Flow Rate 2 07/30/23 17:22 Discharge Plan Discharge Patient Disposition: Home Condition: Stable Prescriptions: Continued furosemide 40 mg tablet 40 mg PO DAILY@0800 30 Days Qty: 90 4RF trazodone 50 mg tablet 50 mg PO BEDTIME Qty: 90 3RF Eliquis 5 mg tablet 5 mg PO BID Qty: 30 0RF Rx Instructions: MUST make follow-up for further refills multivitamin [Multiple Vitamins] Tablet 1 tab PO QAM magnesium oxide 400 mg (241.3 mg magnesium) Tablet 400 mg PO BID omeprazole 20 mg Capsule,Delayed Release(Dr/Ec) 20 mg PO QAM ferrous gluconate 324 mg (38 mg iron) Tablet 324 mg PO QAM aspirin [Adult Aspirin Regimen] 81 mg tablet,delayed release (DR/EC) 81 mg PO QAM ascorbic acid (vitamin C) [Vitamin C] 500 mg Tablet 500 mg PO QAM PreserVision AREDS 14,320-226-200 mmlr-rd-whpm Capsule 1 cap PO BID metoprolol tartrate 25 mg tablet 25 mg PO BID loperamide 2 mg capsule 2 mg PO QID PRN (Reason: Diarrhea) tramadol 50 mg tablet 50 - 100 mg PO Q4H PRN (Reason: Pain) glipizide 5 mg tablet 5 mg PO BID metformin 1,000 mg tablet 1,000 mg PO BID fluticasone propionate 50 mcg/actuation spray,suspension 2 spray INTRANASAL QAM Levemir FlexPen 100 unit/mL (3 mL) insulin pen 10 unit SUBCUT Q12H fenofibrate nanocrystallized 145 mg tablet 145 mg PO BEDTIME Vitamin D3 50 mcg (2,000 unit) Tablet 50 mcg PO QAM Held Klor-Con M20 20 mEq tablet,ER particles/crystals 20 meq PO Q24H 30 Days Qty: 90 4RF Hold Instructions: Resume on 08/15/23. hold until PCP follow up Discontinued lisinopril 20 mg tablet 20 mg PO BID Qty: 60 0RF Discharge Orders: Discharge Order (Routine); Ordered 08/01/23 Ordered By: Renea Canales Referrals: Lillian Locke [Primary Care Provider] - 08/05/23 2:40 pm (APPOINTMENT [facility] BE AT [facility]. ) Discharge Diet: Usual diet Discharge Activity: Resume usual activity Patient Instructions: Hyperkalemia (GEN), Opioid Safety Discharge Attestations Time Spent in Discharge Care*: greater than 30 min Quality Metrics Clinical Quality Measures [ No reported AMI, CVA or VTE this stay] Coding Level of Care Code Acute Code for g Fwd Diagnoses Acute hyperkalemia E87.5
== END 2023-08-01 15:43 | disposition home or self-care (01) ==
LOC: ER 18:01 → MEDSURG 21:18
PROVIDERS: Family Medicine; Admitting Provider Internal Medicine; Emergency Provider Emergency Medicine; PCP Registered Nurse; Visit Provider Student in an Organized Health Care Education/Training Program
DX: E87.5 Hyperkalemia (principal); I11.0 Hypertensive heart disease with heart failure; I50.9 Heart failure, unspecified; I48.91 Unspecified atrial fibrillation; Z79.01 Long term (current) use of anticoagulants; E11.9 Type 2 diabetes mellitus without complications; I45.10 Unspecified right bundle-branch block; R18.8 Other ascites; Z82.49 Family history of ischemic heart disease and other diseases of the circulatory system; J90 Pleural effusion, not elsewhere classified
CPT/HCPCS: 36415; 36416; 71045; 74176; 80053; 82962; 83690; 83880; 84132; 84443; 84484; 85025; 87040; 93005; 96365; 96367; 96372; 96375; 99285; G0378; J0456; J0612; J0696; J1650; J1815; J1940; J3490; J7050

== ENCOUNTER 2023-11-23 12:31 | Inpatient (IN) | payer MEDICARE, MEDICAID, SELFPAY ==
[2023-11-23] VITALS (7 sets, daily range): BP systolic 104–163; BP diastolic 40–55; PULSE 56–61; RESP 19–28; TEMP 36.8; O2SAT 89–97; BMI 30.2
--- NOTE | 2023-11-23 12:41 | ECG_ITS ---
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 Measurements Intervals [place] Rate: 54 P: 52 GA: 120 QRS: 192 QRSD: 154 T: -2 QT: 518 QTc: 494 Interpretive Statements SINUS BRADYCARDIA RIGHT AXIS DEVIATION [QRS AXIS > 100] RIGHT BUNDLE BRANCH BLOCK [120+ ms QRS DURATION, UPRIGHT V1, 40+ ms S IN I/aVL/V4/V5/V6] SEPTAL MYOCARDIAL INFARCTION , OF INDETERMINATE AGE [40+ ms Q WAVE IN V1/V2] INTERPRETATION BASED ON A DEFAULT AGE OF 40 YEARS Compared to ECG 07/31/2023 20:29:25 No significant changes Electronically Signed On 11-23-2023 15:44:28 COSTUME MAKER by Donald Alba M.D. [id number]
--- NOTE | 2023-11-23 12:44 | XRR_ITS ---
PROCEDURE INFORMATION: Exam: XR Chest Exam date and time: 11/23/2023 1:02 PM Age: 73 years old Clinical indication: Shortness of breath; Prior surgery; Surgery date: 6+ months; Surgery type: Cabg/avr; Patient HX: SOB; Low o2 sat; O23 dependant; Copd; Aflutter; HX cabg, avr TECHNIQUE: Imaging protocol: Radiologic exam of the chest. Views: 1 view. COMPARISON: CR (CHEST, ) 07/30/2023 9:03 PM FINDINGS: Tubes, catheters and devices: Median sternotomy suture wire. Lungs: Fairly stable CHF. CHF with vascular engorgement, mild interstitial edema, moderate bilateral pleural effusions, and bibasilar infiltrates. The pleural effusions are better delineated today, presumably related to positioning. Pleural spaces: See Lungs finding. Heart/Mediastinum: Valve replacement. Cardiomegaly. Bones/joints: Unremarkable. XR/XR chest 1V portable [id number] IMPRESSION: Persistent CHF.
[2023-11-23 12:55] LABS: Basophils % 0.6 %; Eosinophils # 0.1 10^3/uL (0.0-0.8); Eosinophils % 2.3 %; Hematocrit 31.7 % (36-47); Lymphocytes # 0.8 10^3/uL (0.8-4.8); Lymphocytes % 17.4 %; Mean Corpuscular HGB Conc 31.2 g/dL (30-55); Mean Corpuscular Hemoglobin 29.2 pg (27-33); Mean Corpuscular Volume 93.5 fl (85-98); Mean Platelet Volume 10.7 fL (7.4-10.4); Monocytes # 0.4 10^3/uL (0.2-0.9); Monocytes % 7.4 %; Neutrophils # 3.43 10^3/uL (1.8-7.7); Neutrophils % 72.1 %; Nucleated Red Blood Cells % 0 %; Platelet Count 181 10^3/cmm (157-399); Red Blood Count 3.39 10^6/uL (3.85-5.65); Red Cell Distribution Width 14.1 % (12.1-15.1); White Blood Count 4.76 10^3/uL (3.29-11.43)
[2023-11-23 13:06] LABS: ABG PCO2 45.6 mmHg (35-45); ABG PH Result 7.44 (7.35-7.45); Arterial Blood Gas Hematocrit 28.9 % (37-47); Base Excess ABG 6.4 mmol/L (-2.0-2.0); Blood Gas Operator Identificat AMH; Blood Gas Sample Site Brachial, right; Blood Gas Sample Type Arterial; Carboxyhemoglobin 0.4 %THgb (0.4-20.1); HCO3 ABG 31.3 mmol/L (22-26); HGB O2 Sat 91.2 % (95-100); Methemoglobin 0.5 % (0.4-1.5); Oxygen Device NC; PO2 ABG 66.8 mmHg (80.0-100.0); PO2 FiO2 Ratio Arterial Blood 0; Total Hemoglobin 9.4 g/dL (12-16)
[2023-11-23 13:27] LABS: Anion Gap 17.4 (5-19); Blood Urea Nitrogen 30 mg/dL (8-23); Calcium 8.9 mg/dL (8.5-10.5); Carbon Dioxide 28 mmol/L (22-29); Chloride 97 mmol/L (98-107); Glucose 145 mg/dL (65-115); Osmolality Calculated 295 mOsm/kg (285-295); Potassium 4.4 mmol/L (3.5-5.1); Sodium 138 mmol/L (136-145)
--- NOTE | 2023-11-23 13:33 | PC.PHAR ---
Addendum entered by Nella Mckeon 11/23/23 13:39: FENOFIBRATE 145 MG LAST FILLED 06/25/23 NOT CURRENT. Original Note: PT STATES HER [id number] GIVE HER MEDICATIONS. UNABLE TO CONTACT HER, SO WE VERIFIED OTC MEDICATIONS AND PT STATED SHE TOOK AM MEDS. VERIFIED PRESCRIPTION MEDICATIONS VIA PT LIST. FILL DATES SHOW PT IS CURRENT EXCEPT POTASSIUM, WHICH HAD BEEN ON HOLD. 11/23/23
[2023-11-23 13:34] LABS: NT Pro B Type Natriuretic Pept 10539 pg/mL (0-450)
[2023-11-23] MEDS: FUROsemide 10 mg/mL SDV 10mL 80 MG IVP (14:50)
--- NOTE | 2023-11-23 15:49 | W.ED.SOB ---
HPI - SOB/Dyspnea General: Chief Complaint: Shortness of Breath/Dyspnea Stated Complaint: SOB Time Seen by Provider: 11/23/23 12:34 History of Present Illness: HPI Narrative: This patient is a 73-year-old white female who presents to the emergency department with shortness of breath. Patient states that this started 10 days ago and has been getting progressively worse. She was picked up by EMS and evidently they had to place her on CPAP due to her respiratory distress. Patient has had a mild nonproductive cough. No fever. She denies having any chest pain. She does have a history of congestive heart failure. Review of Systems General: Reports: 10 or more systems reviewed and unremarkable except in HPI and below PFSH ED PFSH: Medical History Atrial flutter Diabetes Essential hypertension Hyperlipidemia Polio osteopathy of lower leg Surgical History H/O aortic valve replacement History of aortic valve replacement with bioprosthetic valve bovine valve 10/13/2013 at [facility] History of cholecystectomy History of eye surgery History of foot surgery History of shoulder surgery History of surgery on arm Family History Mother CAD (coronary artery disease) Social History Smoking and tobacco/nicotine status: never used tobacco/nicotine Alcohol intake: never Substance/Drug Use: never Additional social history: Has home health care, electric wheelchair Lives independently: Yes Household members: none Housing: House Physical Exam Const: COMMON NORMALS: no acute distress, patient oriented x3 and no limitations GENERAL APPEARANCE: cooperative and comfortable HENMT: COMMON NORMALS: normocephalic, atraumatic, Normal nasal mucous membranes and turbinates present, moist oral mucous membranes and oropharynx normal HEAD & SCALP: normal to inspection, normocephalic and atraumatic FACE & SINUS: normal facial exam NOSE: Normal nasal mucous membranes and turbinates present Eye: COMMON NORMALS: Equal, round and reactive pupils present, EOMs intact bilaterally and conjunctivae normal GENERAL EYE: appearance normal, both eyes and all related structures CONJUNCTIVA: Yes conjunctivae normal PUPIL: Yes Equal, round and reactive pupils present Neck/C-Spine: COMMON NORMALS: supple and no JVD Chest: COMMONS NORMALS: normal inspection of the chest Resp: EFFORT & INSPECTION: Yes able to speak in complete sentences and Yes tachypneic AUSCULTATION: rales Cardio: COMMON NORMALS: no JVD, regular rate, regular rhythm, No gallops present (Cardio), No murmurs present (Cardio) and No rub (Cardio) RATE: regular rate RHYTHM: regular rhythm GI: COMMON NORMALS: Normal to inspection, nondistended, normoactive bowel sounds present, Soft to palpation and non-tender AUSCULTATION: Yes normoactive bowel sounds PALPATION: Yes Soft to palpation : COMMON NORMALS: Yes no CVA tenderness BLADDER/KIDNEY EXAM: Yes no CVA tenderness Back/Pelvis: COMMON NORMALS: no CVA tenderness and thoracic and lumbar spine normal to inspection Neuro: COMMON NORMALS: patient oriented x3 and CN's II-XII intact bilaterally Psych: COMMON NORMALS: mental status grossly normal, Normal thought process present and cooperative THOUGHT PROCESS: Normal thought process present Skin: COMMON NORMALS: no rashes or lesions noted, turgor normal and no jaundice GENERAL SKIN EXAM: no rashes or lesions noted and turgor normal Course Vital Signs: Vital signs: Vital Signs Temperature 98.3 F 11/23/23 12:32 Pulse Rate 56 L 11/23/23 14:52 Respiratory Rate 28 H 11/23/23 14:52 Blood Pressure 104/46 11/23/23 14:52 Pulse Oximetry 96 11/23/23 14:52 Oxygen Delivery Me thod Nasal Cannula 11/23/23 12:43 Oxygen Flow Rate 2.5 11/23/23 12:43 MDM - SOB/Dyspnea Medical Decision Making EKG reveals a right bundle branch block. No significant ST segment abnormalities. She was in normal sinus rhythm at a rate of 54. CBC reveals a hemoglobin of 9.9 which is chronic. BMP revealed a BUN of 38 and a creatinine of 0.4. BNP was 10,539. ABG reveals a pH of 7.44 with a pCO2 of 45 and a pO2 of 67 on 2-1/2 L. Chest x-ray reveals moderate bilateral pleural effusions and cardiomegaly consistent with congestive heart failure. Patient was given 80 mg of Lasix IV. She has not yet urinated. Patient will need to be admitted for diuresis. I discussed the case with Dr. Marques. She did accept the patient. Patient will be transferred to the floor shortly. She is stable. Differential Diagnosis Likely acute exacerbation of chronic obstructive airways disease, congestive heart failure and community acquired pneumonia Lab Data I reviewed the patient's lab results. 11/23/23 12:30 11/23/23 12:30 Labs/Radiology: Radiology Impressions Chest X-Ray 11/23/23 12:44 IMPRESSION: Persistent CHF. Laboratory Results WBC 4.76 10^3/uL (3.29-11.43) 11/23/23 12:30 RBC 3.39 10^6/uL (3.85-5.65) L 11/23/23 12:30 Hgb 9.90 g/dL (11.27-16.99) L 11/23/23 12:30 Hct 31.7 % (36-47) L 11/23/23 12:30 MCV 93.5 fl (85-98) 11/23/23 12:30 MCH 29.2 pg (27-33) 11/23/23 12:30 MCHC 31.2 g/dL (30-55) 11/23/23 12:30 RDW 14.1 % (12.1-15.1) 11/23/23 12:30 Plt Count 181 10^3/cmm (157-399) 11/23/23 12:30 MPV 10.7 fL (7.4-10.4) H 11/23/23 12:30 Neut % (Auto) 72.1 % 11/23/23 12:30 Lymph % (Auto) 17.4 % 11/23/23 12:30 [place] % (Auto) 7.4 % 11/23/23 12:30 Eos % (Auto) 2.3 % 11/23/23 12:30 Baso % (Auto) 0.6 % 11/23/23 12:30 Neut # (Auto) 3.43 10^3/uL (1.8-7.7) 11/23/23 12:30 Lymph # (Auto) 0.8 10^3/uL (0.8-4.8) 11/23/23 12:30 [place] # (Auto) 0.4 10^3/uL (0.2-0.9) 11/23/23 12:30 Eos # (Auto) 0.1 10^3/uL (0.0-0.8) 11/23/23 12:30 Baso # (Auto) 0.0 10^3/uL (0.0-0.1) 11/23/23 12:30 Nucleated RBC % (auto) 0 % 11/23/23 12:30 Nucleated RBCs # 0.0 /100WBC 11/23/23 12:30 Specimen Type Arterial 11/23/23 12:55 Sample Site Brachial, right 11/23/23 12:55 ABG pH 7.44 (7.35-7.45) 11/23/23 12:55 ABG pCO2 45.6 mmHg (35-45) H 11/23/23 12:55 ABG pO2 66.8 mmHg (80.0-100.0) L 11/23/23 12:55 ABG PO2/FiO2 Ratio 0 11/23/23 12:55 ABG HCO3 31.3 mmol/L (22-26) H 11/23/23 12:55 ABG Base Excess 6.4 mmol/L (-2.0-2.0) H 11/23/23 12:55 Abdullahi Test N/a 11/23/23 12:55 Hematocrit 28.9 % (37-47) L 11/23/23 12:55 Hgb O2 Saturation 91.2 % (95-100) L 11/23/23 12:55 Carboxyhemoglobin 0.4 %THgb (0.4-20.1) 11/23/23 12:55 Methemoglobin 0.5 % (0.4-1.5) 11/23/23 12:55 Total Hemoglobin 9.4 g/dL (12-16) L 11/23/23 12:55 O2 Delivery Device Nc 11/23/23 12:55 FiO2 28.0 % 11/23/23 12:55 [employer] ID [email or web address] 11/23/23 12:55 Sodium 138 mmol/L (136-145) 11/23/23 12:30 Potassium 4.4 mmol/L (3.5-5.1) 11/23/23 12:30 Chloride 97 mmol/L (98-107) L 11/23/23 12:30 Carbon Dioxide 28 mmol/L (22-29) 11/23/23 12:30 Anion Gap 17.4 (5-19) 11/23/23 12:30 BUN 30 mg/dL (8-23) H 11/23/23 12:30 Creatinine 0.4 mg/dL (0.5-0.9) L 11/23/23 12:30 GFR Calculation Not Reportable 11/23/23 12:30 Glucose 145 mg/dL (65-115) H 11/23/23 12:30 Calculated Osmolality 295 mOsm/kg (285-295) 11/23/23 12:30 Calcium 8.9 mg/dL (8.5-10.5) 11/23/23 12:30 NT-Pro-B Natriuret Pep 44548 pg/mL (0-450) H 11/23/23 12:30 All radiology interpretation(s) finalized by discharge Discharge Plan Discharge Patient Disposition: Admitted As Inpatient Clinical Impression: Congestive heart failure Condition: Stable Prescriptions: No Action furosemide 40 mg tablet 40 mg PO DAILY@0800 30 Days Qty: 90 4RF Klor-Con M20 20 mEq tablet,ER particles/crystals 20 meq PO Q24H 30 Days Qty: 90 4RF Hold Instructions: Resume on 08/15/23. hold until PCP follow up trazodone 50 mg tablet 50 mg PO BEDTIME Qty: 90 3RF Eliquis 5 mg tablet 5 mg PO BID Qty: 30 0RF multivitamin [Multiple Vitamins] Tablet 1 tab PO QAM magnesium oxide 400 mg (241.3 mg magnesium) Tablet 400 mg PO BID omeprazole 20 mg Capsule,Delayed Release(Dr/Ec) 20 mg PO QAM ferrous gluconate 324 mg (38 mg iron) Tablet 324 mg PO QAM aspirin [Adult Aspirin Regimen] 81 mg tablet,delayed release (DR/EC) 81 mg PO QAM ascorbic acid (vitamin C) [Vitamin C] 500 mg Tablet 500 mg PO QAM PreserVision AREDS [id number] Capsule 1 cap PO BID metoprolol tartrate 25 mg tablet 25 mg PO BID loperamide 2 mg capsule 2 mg PO QID PRN (Reason: Diarrhea) tramadol 50 mg tablet 50 - 100 mg PO Q4H PRN (Reason: Pain) glipizide 5 mg tablet 5 mg PO BID metformin 1,000 mg tablet 1,000 mg PO BID fluticasone propionate 50 mcg/actuation spray,suspension 2 spray INTRANASAL QAM Levemir FlexPen 100 unit/mL (3 mL) insulin pen 10 unit SUBCUT Q12H fenofibrate nanocrystallized 145 mg tablet 145 mg PO BEDTIME cholecalciferol (vitamin D3) [Vitamin D3] 50 mcg (2,000 unit) Tablet 50 mcg PO QAM amiodarone 200 mg tablet 200 mg PO DAILY lisinopril 20 mg tablet 20 mg PO DAILY pravastatin 20 mg tablet 20 mg PO DAILY mupirocin 2 % ointment 1 applic TOPICAL BID Rx Instructions: X 2 WEEKS Referrals: Lillian Locke [Primary Care Provider] - Coding Level of Care Code ED Management Professional for Ashley Chavira
--- NOTE | 2023-11-23 16:34 | P.HP_ITS ---
Providers/Chief Complaint 2 Primary Care Provider: Lillian Locke Chief Complaint: SOB History of Present Illness Renae Padilla is a 73 year old female with history of poliomyelitis, bedbound, congestive heart failure, essential hypertension, atrial fibrillation on Eliquis, diabetes, H/O aortic valve replacement, was brought in by EMS today due to complaints of shortness of breath. Patient stated that she has been feeling short of breath for the last 10 days or so however today she was unable to catch her breath which prompted the emergency room visit. Patient carries a history of CHF and takes Lasix 40 mg daily.. She she denies missing any doses recently or any joint change in the dose of her medications. She denies any chest pain dyspnea palpitations. She has a chronic cough and rhinorrhea which is unchanged over her baseline. Upon EMS arrival she was initially reported to be needing about 10 L/min supplemental O2 via nonrebreather while her baseline is 2 L/min at home. She received 80 mg of IV Lasix in the emergency room and is currently been placed on 3 L/min supplemental O2 and saturating 96% at the time of this assessment. She denies any chest pain dyspnea palpitations or syncope. Denies any fever or chills. Denies any abdominal pain nausea vomiting or diarrhea. Review of Systems 2 General: Reports: 10 or more systems reviewed and unremarkable except in HPI and below Const: Denies: fever(s), chills or body aches Eyes: Denies: change in vision, blurry vision or photophobia ENMT: Reports: hoarseness; Denies: throat pain, enlarged tonsils, odynophagia or nasal congestion Card: Denies: chest pain, palpitations, irregular heart rhythm, edema, swelling of feet/ankles, lightheadedness, pre-syncope, dyspnea on exertion or orthopnea Resp: Denies: dyspnea, productive cough, non-productive cough, wheezing, stridor, pain on inspiration, change in phlegm color, hemoptysis or chest congestion GI: Denies: abdominal pain, nausea, vomiting, hematemesis, coffee ground emesis, dysphagia, heartburn, diarrhea, constipation, GI cramping, change in stool character, hematochezia or melena : Denies: flank pain, difficulty voiding, dysuria, urinary frequency, urinary urgency, urinary hesitancy or hematuria Musc: Denies: neck pain, back pain, extremity pain, joint swelling, joint warmth or deformity Neuro: Denies: headache(s), numbness in extremities, weakness in extremities, sensory changes, difficulty walking, frequent falls, dizziness, vertigo, behavioral changes, Slurred speech present or seizure-like activity Psych: Denies: anxiety, depression, suicidal ideation or homicidal ideation Endo: Denies: polyuria, polydipsia, tired all the time, cold intolerance or hot flashes Cali/Lymph: Denies: easy bruising or easy bleeding Medications/Allergies Home Medications Medication Instructions Recorded Confirmed Last Taken Type aspirin 81 mg tablet,delayed 81 mg PO QAM 11/11/19 11/23/23 11/23/23 History release (Adult Aspirin Regimen) ferrous gluconate 324 mg (38 mg 324 mg PO QAM 11/11/19 11/23/23 11/23/23 History iron) tablet magnesium oxide 400 mg (241.3 mg 400 mg PO BID 11/11/19 11/23/23 11/23/23 History magnesium) tablet multivitamin (Multiple Vitamins 1 tab PO QAM 11/11/19 11/23/23 11/23/23 History tablet) omeprazole 20 mg capsule,delayed 20 mg PO QAM 11/11/19 11/23/23 11/23/23 History release ascorbic acid (vitamin C) 500 mg 500 mg PO QAM 06/16/21 11/23/23 07/30/23 History tablet (Vitamin C) metoprolol tartrate 25 mg tablet 25 mg PO BID 06/16/21 11/23/23 11/23/23 History vitamins A,C,P-udix-onolje 4,296 1 cap PO BID 06/16/21 11/23/23 11/23/23 History mcg-226 mg-90 mg capsule (PreserVision AREDS) apixaban 5 mg tablet (Eliquis) 5 mg PO BID #30 tabs 05/28/22 11/23/23 11/23/23 Rx glipizide 5 mg tablet 5 mg PO BID 06/22/23 11/23/23 11/23/23 History loperamide 2 mg capsule 2 mg PO QID PRN Diarrhea 06/22/23 11/23/23 Unknown History tramadol 50 mg tablet 50 - 100 mg PO Q4H PRN Pain 06/22/23 11/23/23 Unknown History furosemide 40 mg tablet 40 mg PO DAILY@0800 30 days #90 07/15/23 11/23/23 11/23/23 Rx tabs potassium chloride 20 mEq 20 meq PO Q24H 30 days #90 tabs 07/15/23 11/23/23 07/30/23 Rx tablet,extended release(part/cryst) (Klor-Con M) trazodone 50 mg tablet 50 mg PO BEDTIME #90 tabs 07/15/23 11/23/23 11/22/23 Rx cholecalciferol (vitamin D3) 50 50 mcg PO QAM 07/31/23 11/23/23 11/23/23 History mcg (2,000 unit) tablet (Vitamin D3) fenofibrate nanocrystallized 145 145 mg PO BEDTIME 07/31/23 11/23/23 11/22/23 History mg tablet fluticasone propionate 50 2 spray intranasal QAM 07/31/23 11/23/23 11/23/23 History mcg/actuation nasal spray,suspension insulin detemir U-100 100 unit/mL 10 unit SUBCUT Q12H 07/31/23 11/23/23 11/23/23 History (3 mL) subcutaneous pen (Levemir FlexPen) metformin 1,000 mg tablet 1,000 mg PO BID 07/31/23 11/23/23 11/23/23 History amiodarone 200 mg tablet 200 mg PO DAILY 11/23/23 11/23/23 11/23/23 History lisinopril 20 mg tablet 20 mg PO DAILY 11/23/23 11/23/23 11/23/23 History mupirocin 2 % topical ointment 1 applic topical BID 11/23/23 11/23/23 Unknown History pravastatin 20 mg tablet 20 mg PO DAILY 11/23/23 11/23/23 11/22/23 History Allergies Allergy/AdvReac Type Severity Reaction Status Date / Time fish oil Allergy Unknown Verified 07/15/23 11:58 PFSH Acute 2 PFSH: Medical History Atrial flutter Diabetes Essential hypertension Hyperlipidemia Polio osteopathy of lower leg Surgical History H/O aortic valve replacement History of aortic valve replacement with bioprosthetic valve bovine valve 10/13/2013 at [facility] History of cholecystectomy History of eye surgery History of foot surgery History of shoulder surgery History of surgery on arm Family History Mother CAD (coronary artery disease) Social History Smoking and tobacco/nicotine status: never used tobacco/nicotine Alcohol intake: never Substance/Drug Use: never Additional social history: Has home health care, electric wheelchair Lives independently: Yes Household members: none Housing: House Vitals/I&O/Wt Last Vital Signs Temp 98.3 F 11/23/23 12:32 Pulse 56 L 11/23/23 14:52 Resp 28 H 11/23/23 14:52 BP 104/46 11/23/23 14:52 Pulse Ox 96 11/23/23 14:52 O2 Del Method Nasal Cannula 11/23/23 12:43 O2 Flow Rate 2.5 11/23/23 12:43 Weight last 48 hrs Weight 68.039 kg Physical Exam 2 Narrative: General: No acute distress, AO x3 HEENT: PERRLA, pupils bilaterally equal and reactive, pallors not present Chest: Normal vesicular breath sounds, no added sounds, equal good air entry bilaterally CVS: S1-S2 regular, no murmurs, no tachycardia, no gallops, no rubs Abdomen: Soft, nontender, no organomegaly, bowel sounds present Neuro: No focal deficits, no facial deformity, AO x3, power 5/5 in all limbs EXT: 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 Laboratory Results WBC 4.76 10^3/uL (3.29-11.43) 11/23/23 12:30 RBC 3.39 10^6/uL (3.85-5.65) L 11/23/23 12:30 Hgb 9.90 g/dL (11.27-16.99) L 11/23/23 12:30 Hct 31.7 % (36-47) L 11/23/23 12:30 MCV 93.5 fl (85-98) 11/23/23 12:30 MCH 29.2 pg (27-33) 11/23/23 12: MCHC 31.2 g/dL (30-55) 11/23/23 12:30 RDW 14.1 % (12.1-15.1) 11/23/23 12:30 Plt Count 181 10^3/cmm (157-399) 11/23/23 12:30 MPV 10.7 fL (7.4-10.4) H 11/23/23 12:30 Neut % (Auto) 72.1 % 11/23/23 12:30 Lymph % (Auto) 17.4 % 11/23/23 12:30 [place] % (Auto) 7.4 % 11/23/23 12:30 Eos % (Auto) 2.3 % 11/23/23 12:30 Baso % (Auto) 0.6 % 11/23/23 12:30 Neut # (Auto) 3.43 10^3/uL (1.8-7.7) 11/23/23 12:30 Lymph # (Auto) 0.8 10^3/uL (0.8-4.8) 11/23/23 12:30 [place] # (Auto) 0.4 10^3/uL (0.2-0.9) 11/23/23 12:30 Eos # (Auto) 0.1 10^3/uL (0.0-0.8) 11/23/23 12: Baso # (Auto) 0.0 10^3/uL (0.0-0.1) 11/23/23 12:30 Nucleated RBC % (auto) 0 % 11/23/23 12: Nucleated RBCs # 0.0 /100WBC 11/23/23 12:30 Specimen Type Arterial 11/23/23 12:55 Sample Site Brachial, right 11/23/23 12:55 ABG pH 7.44 (7.35-7.45) 11/23/23 12:55 ABG pCO2 45.6 mmHg (35-45) H 11/23/23 12:55 ABG pO2 66.8 mmHg (80.0-100.0) L 11/23/23 12:55 ABG PO2/FiO2 Ratio 0 11/23/23 12:55 ABG HCO3 31.3 mmol/L (22-26) H 11/23/23 12:55 ABG Base Excess 6.4 mmol/L (-2.0-2.0) H 11/23/23 12:55 Abdullahi Test N/a 11/23/23 12:55 Hematocrit 28.9 % (37-47) L 11/23/23 12:55 Hgb O2 Saturation 91.2 % (95-100) L 11/23/23 12:55 Carboxyhemoglobin 0.4 %THgb (0.4-20.1) 11/23/23 12:55 Methemoglobin 0.5 % (0.4-1.5) 11/23/23 12:55 Total Hemoglobin 9.4 g/dL (12-16) L 11/23/23 12:55 O2 Delivery Device Nc 11/23/23 12:55 FiO2 28.0 % 11/23/23 12:55 [employer] ID [email or web address] 11/23/23 12:55 Sodium 138 mmol/L (136-145) 11/23/23 12:30 Potassium 4.4 mmol/L (3.5-5.1) 11/23/23 12:30 Chloride 97 mmol/L (98-107) L 11/23/23 12:30 Carbon Dioxide 28 mmol/L (22-29) 11/23/23 12:30 Anion Gap 17.4 (5-19) 11/23/23 12:30 BUN 30 mg/dL (8-23) H 11/23/23 12:30 Creatinine 0.4 mg/dL (0.5-0.9) L 11/23/23 12:30 GFR Calculation Not Reportable 11/23/23 12:30 Glucose 145 mg/dL (65-115) H 11/23/23 12:30 Calculated Osmolality 295 mOsm/kg (285-295) 11/23/23 12:30 Calcium 8.9 mg/dL (8.5-10.5) 11/23/23 12:30 NT-Pro-B Natriuret Pep 06446 pg/mL (0-450) H 11/23/23 12:30 A&P Assessment and plan (1) Congestive heart failure: Patient presenting today with worsening hypoxia, increased respiratory effort. Found to have clinical evidence of CHF. 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 Previous echo from June 2023 showing normal left ventricular systolic function, no regional wall motion abnormalities, grade 2 diastolic dysfunction and moderately elevated filling pressures. There was note made of severe mitral annular calcification. Perhaps functional mitral stenosis. Increased vascular markings on chest x-ray. Elevated BNP 10,000. Received Lasix in the emergency room, following which her respiratory status is improving Will continue diuresis with Lasix at 40 mg IV every [address] Krause catheter to measure accurate output. No chest pain, EKG without ST-T wave changes acutely. Low concern for ACS. Low probability of PE given that patient is anticoagulated with Eliquis. (2) Pleural effusion: Right-sided pleural effusion. Suspect this to be transudative from CHF. No recent symptoms of pneumonia. Afebrile, hemodynamically stable, no leukocytosis. Monitor off antibiotics. If effusion fails to improve with IV diuresis, may need to consider thoracentesis. Holding Eliquis in case thoracentesis is needed on Saturday. (3) Anticoagulated: Holding Eliquis currently. Plan A-fib/A-flutter history: Currently rate controlled. Continue amiodarone. Continue aspirin 81 mg p.o. daily. Holding Eliquis as noted above. continue metoprolol 25 mg p.o. twice daily. Diabetes mellitus: Continue Levemir 10 units every 12 hours, insulin sliding scale ordered. DVT prophylaxis. Attestations 2 Medical Necessity Statement*: Greater than 2 midnight admission is anticipated for acute on chronic diastolic CHF exacerbation Coding Level of Care Code Acute Code for Chg Fwd Moderate MDM includes number and complexity of problems actively addressed during encounter, amount and/or complexity of data reviewed/ordered and described risk of complication, morbidity or mortality of management as documented Diagnoses Congestive heart failure I50.9 Pleural effusion J90 Anticoagulated Z79.01
--- NOTE | 2023-11-23 17:09 | PC.NURSE ---
Dr. Saunders notified of pt BP of 104/40 with a nitro patch on L chest, orders given to leave patch on.
[2023-11-23] MEDS: insulin glargine 100 units/1 mL 10 UNIT SUBCUT (19:04)
[2023-11-23] MEDS: fenofibrate 145 mg Tablet PO (20:50)
[2023-11-23] MEDS: trazodone 50 mg Tablet PO (20:50)
[2023-11-23] MEDS: FUROsemide 10 mg/mL SDV 2mL 20 MG IVP (21:12)
[2023-11-23 21:33] LABS: Glucose Point of Care 201 mg/dL (70-110)
[2023-11-23] MEDS: insulin lispro 100 unit/1 mL SUBCUT (22:41)
[2023-11-24] VITALS (9 sets, daily range): BP systolic 100–147; BP diastolic 45–78; PULSE 48–69; RESP 18–21; TEMP 36.4–36.9; O2SAT 90–100
[2023-11-24] MEDS: FUROsemide 10 mg/mL SDV 4mL 40 MG IVP ×2 (05:30→17:29)
[2023-11-24] MEDS: aspirin 81 mg EC Tablet PO (05:30)
[2023-11-24 06:20] LABS: Basophils % 0.6 %; Eosinophils # 0.1 10^3/uL (0.0-0.8); Hematocrit 28.1 % (36-47); Lymphocytes # 0.7 10^3/uL (0.8-4.8); Lymphocytes % 12.9 %; Mean Corpuscular Hemoglobin 29.7 pg (27-33); Mean Corpuscular Volume 92.7 fl (85-98); Mean Platelet Volume 10.3 fL (7.4-10.4); Monocytes # 0.5 10^3/uL (0.2-0.9); Monocytes % 9.9 %; Neutrophils # 3.79 10^3/uL (1.8-7.7); Neutrophils % 75.4 %; Nucleated Red Blood Cells % 0 %; Platelet Count 182 10^3/cmm (157-399); Red Blood Count 3.03 10^6/uL (3.85-5.65); Red Cell Distribution Width 13.9 % (12.1-15.1); White Blood Count 5.03 10^3/uL (3.29-11.43)
[2023-11-24 06:22] LABS: Glucose Point of Care 99 mg/dL (70-110)
[2023-11-24 06:37] LABS: Alanine Aminotransferase 9 U/L (0-33); Albumin Level 3.8 g/dL (3.5-5.2); Alkaline Phosphatase 71 U/L (35-105); Anion Gap 14.7 (5-19); Aspartate Amino Transferase 19 U/L (0-32); Blood Urea Nitrogen 28 mg/dL (8-23); Calcium 8.9 mg/dL (8.5-10.5); Carbon Dioxide 32 mmol/L (22-29); Chloride 97 mmol/L (98-107); Globulin 2.4 g/dL (1.3-4.6); Glucose 86 mg/dL (65-115); Osmolality Calculated 295 mOsm/kg (285-295); Potassium 3.7 mmol/L (3.5-5.1); Sodium 140 mmol/L (136-145); Total Bilirubin 0.6 mg/dL (0.15-1.2); Total Protein 6.2 g/dL (6.6-8.7)
[2023-11-24] MEDS: pantoprazole DR 40 mg Tablet PO (08:43)
[2023-11-24] MEDS: metoprolol tartrate 25 mg Tablet PO ×2 (08:43→17:29)
[2023-11-24] MEDS: lisinopril 20 mg Tablet PO (08:43)
[2023-11-24] MEDS: atorvastatin 40 mg Tablet 20 MG PO (08:43)
[2023-11-24] MEDS: insulin glargine 100 units/1 mL 10 UNIT SUBCUT ×2 (08:43→17:28)
[2023-11-24] MEDS: amiodarone 200 mg Tablet PO (08:44)
[2023-11-24 11:23] LABS: Glucose Point of Care 330 mg/dL (70-110)
[2023-11-24 11:23] LABS: Glucose Point of Care 350 mg/dL (70-110)
[2023-11-24 11:23] LABS: Glucose Point of Care 562 mg/dL (70-110)
[2023-11-24] MEDS: insulin lispro 100 unit/1 mL SUBCUT ×2 (12:11→17:29)
[2023-11-24 17:07] LABS: Glucose Point of Care 201 mg/dL (70-110)
--- NOTE | 2023-11-24 18:28 | P.PN_ITS ---
Subjective 2 Subjective: Patient feels that she is symptomatically improving today. She is currently on 1 L/min supplemental O2. Hemodynamically stable. Net -1.6 L over the last 24 hours. Kidney function stable at 0.4 creatinine. Medications: Reviewed: Yes Vitals/I&O/Wt Last Vital Signs Temp 98.0 F 11/24/23 16:00 Pulse 54 L 11/24/23 16:00 Resp 20 H 11/24/23 09:17 BP 124/62 11/24/23 16:00 Pulse Ox 100 11/24/23 16:00 O2 Del Method Nasal Cannula 11/24/23 16:00 O2 Flow Rate 1 11/24/23 16:00 11/24/23 11/24/23 11/24/23 06:59 14:59 22:59 Intake Total 1280 / 1280 800 / 2080 Output Total 1900 / 1900 1000 / 1000 850 / 1850 Balance -1900 / -1900 280 / 280 -50 / 230 Weight last 48 hrs Weight 74.117 kg Weight 74.072 kg Weight 68.039 kg Physical Exam 2 Narrative: General: No acute distress, AO x3 HEENT: PERRLA, pupils bilaterally equal and reactive, pallors not present Chest: Normal vesicular breath sounds, no added sounds, equal good air entry bilaterally CVS: S1-S2 regular, no murmurs, no tachycardia, no gallops, no rubs Abdomen: Soft, nontender, no organomegaly, bowel sounds present Neuro: No focal deficits, no facial deformity, AO x3, power 5/5 in all limbs EXT: 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 Found to have clinical evidence of CHF. 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 Previous echo from June 2023 showing normal left ventricular systolic function, no regional wall motion abnormalities, grade 2 diastolic dysfunction and moderately elevated filling pressures. There was note made of severe mitral annular calcification. Perhaps functional mitral stenosis. Increased vascular markings on chest x-ray. Elevated BNP 10,000. continue diuresis with Lasix at 40 mg IV every 12 hours. Net -1.6 L over the last 24 hours. Feels symptomatically improving today. No chest pain, EKG without ST-T wave changes acutely. Low concern for ACS. Low probability of PE given that patient is anticoagulated with Eliquis. (2) Pleural effusion: Right-sided pleural effusion. Suspect this to be transudative from CHF. No recent symptoms of pneumonia. Afebrile, hemodynamically stable, no leukocytosis. Monitor off antibiotics. If effusion fails to improve with IV diuresis, may need to consider thoracentesis. Repeat chest x-ray in a.m. a.m. to assess for response to diuresis Holding Eliquis in case thoracentesis is needed on Saturday. (3) Anticoagulated: Holding Eliquis currently for possible thoracentesis tomorrow Plan A-fib/A-flutter history: Currently rate controlled, trending towards bradycardia. Continue amiodarone. Continue aspirin 81 mg p.o. daily. Holding Eliquis as noted above. Reduce metoprolol 25 mg p.o. twice daily to 12.5 mg twice daily due to bradycardia in the 50s. Diabetes mellitus: Continue Levemir 10 units every 12 hours, insulin sliding scale ordered. DVT prophylaxis.: Eliquis should suffice when resumed after thoracentesis. Attestations 2 Medical Necessity Statement*: Continued admission for IV diuresis, reassess chest x-ray with a.m., possible thoracentesis if worsening effusion Coding Level of Care Code Acute Code for Chg Fwd Diagnoses Congestive heart failure I50.9 Pleural effusion J90 Anticoagulated Z79.01
[2023-11-24 20:43] LABS: Glucose Point of Care 139 mg/dL (70-110)
[2023-11-24] MEDS: trazodone 50 mg Tablet PO (21:03)
[2023-11-24] MEDS: fenofibrate 145 mg Tablet PO (21:03)
[2023-11-25] VITALS (10 sets, daily range): BP systolic 89–113; BP diastolic 45–69; PULSE 49–88; RESP 15–18; TEMP 36.3–36.9; O2SAT 91–98; BMI 32.9
--- NOTE | 2023-11-25 04:00 | XRR_ITS ---
PROCEDURE INFORMATION: Exam: XR Chest Exam date and time: 11/25/2023 5:34 AM Age: 73 years old Clinical indication: Condition or disease; Lung condition and disease; Pleural effusion; Other: Not specified; Prior surgery; Surgery date: 6+ months; Surgery type: Cabg. Aortic valve; Additional info: Follow up effusion TECHNIQUE: Imaging protocol: Radiologic exam of the chest. Views: 1 view. COMPARISON: CR (CHEST, ) 11/23/2023 1:02 PM FINDINGS: Lungs: See Pleural spaces finding. Pleural spaces: Bilateral pleural effusions with bibasilar infiltrates. Congestive heart failure is present. A superimposed pneumonia could exist. Heart/Mediastinum: Cardiomegaly. Status post median sternotomy. Bones/joints: See Heart/Mediastinum finding. XR/XR chest 1V portable [id number] IMPRESSION: Persistent CHF.
[2023-11-25 05:23] LABS: Basophils # 0.1 10^3/uL (0.0-0.1); Basophils % 0.8 %; Eosinophils # 0.2 10^3/uL (0.0-0.8); Eosinophils % 3.8 %; Hematocrit 29.2 % (36-47); Lymphocytes # 1.5 10^3/uL (0.8-4.8); Lymphocytes % 23.9 %; Mean Corpuscular HGB Conc 31.5 g/dL (30-55); Mean Corpuscular Hemoglobin 29.7 pg (27-33); Mean Corpuscular Volume 94.2 fl (85-98); Mean Platelet Volume 10.3 fL (7.4-10.4); Monocytes # 0.6 10^3/uL (0.2-0.9); Monocytes % 9.2 %; Neutrophils % 62.1 %; Nucleated Red Blood Cells % 0 %; Platelet Count 206 10^3/cmm (157-399); White Blood Count 6.28 10^3/uL (3.29-11.43)
[2023-11-25 05:38] LABS: Alanine Aminotransferase 7 U/L (0-33); Albumin Level 3.6 g/dL (3.5-5.2); Alkaline Phosphatase 66 U/L (35-105); Anion Gap 12.9 (5-19); Aspartate Amino Transferase 17 U/L (0-32); Blood Urea Nitrogen 30 mg/dL (8-23); Calcium 8.7 mg/dL (8.5-10.5); Carbon Dioxide 31 mmol/L (22-29); Chloride 91 mmol/L (98-107); Globulin 2.5 g/dL (1.3-4.6); Glucose 98 mg/dL (65-115); Osmolality Calculated 278 mOsm/kg (285-295); Potassium 3.9 mmol/L (3.5-5.1); Sodium 131 mmol/L (136-145); Total Bilirubin 0.4 mg/dL (0.15-1.2); Total Protein 6.1 g/dL (6.6-8.7)
[2023-11-25] MEDS: insulin glargine 100 units/1 mL 10 UNIT SUBCUT ×2 (05:47→18:13)
[2023-11-25 06:44] LABS: Glucose Point of Care 138 mg/dL (70-110)
[2023-11-25] MEDS: FUROsemide 10 mg/mL SDV 4mL 40 MG IVP ×2 (07:13→17:17)
--- NOTE | 2023-11-25 08:48 | PC.CHAP ---
Pastoral Care Encounter/Spiritual Assessment Type of Contact [] Declined sr. pricing analyst visit [] Patient/Family/Request visit [] Outpatient visit [] Follow-up visit [] Physician referral [] Code/Alert [x] Routine visit [] Staff referral [] Actively dying [] Patient sleeping [] Family support [] [] Out of room [] Palliative care [] [] Receiving care in room [] Pre-surgical visit [] Trauma [] Long length of stay [] ICU visit [] Other: Relational/Emotional Strength [x] Patient feels connected with others/family/visitors/staff [] Distress [] Loneliness/isolation [] Abandonment Spirituality of Patient [x] Person of Shira [] Attends Mandaeism of their Shira [x] Believes in Prayer [] Reads Bible or Anabaptism materials [] There are Spiritual issues to be addressed Human Resource Intern Interventions [x] Prayer [x] Active listening [] Non-anxious presence [x] Spiritual/emotional support [] Crisis/trauma care [] Spiritual counseling [] Bereavement support [] Provided bereavement packet [] Provided Bible/devotional materials [] Provided toy/stuffed animal, coloring book to patient or family member [] Provided Communion [] Anointing/[place] [] Salvation [x] Completed spiritual assessment [] Other: Impact on Illness or Injury [] Angry [] Fearful [] Anxious [] Often cries [] Exhaustion [] Unable to work [] Unable to attend latter day [] Unable to walk/stand [] Unable to read [] Unable to drive [] Unable to eat/drink [] Unable to sleep [] Unable to be with family [] Patient intubated [] Other: Summary Time spent with patient 5 min
[2023-11-25] MEDS: atorvastatin 40 mg Tablet 20 MG PO (09:51)
[2023-11-25] MEDS: aspirin 81 mg EC Tablet PO (09:51)
[2023-11-25] MEDS: pantoprazole DR 40 mg Tablet PO (09:51)
[2023-11-25] MEDS: metOLazone 5 MG Tablet PO (09:51)
[2023-11-25] MEDS: apixaban 5 mg Tablet PO ×2 (09:51→20:05)
--- NOTE | 2023-11-25 09:59 | PC.NURSE ---
Addendum entered by Melyssa Kelley RN 11/28/23 06:33: Dr. Manning was notified not Dr. Rodriguez. Dr. Manning was Patients Physician Original Note: Notified Dr. Rodriguez of Blood Pressure 113/52 and HR of 52. Patient on Amiodarone 200 mg, Lisinopril 20 mg and Metoprolol 12.5. Dr. Rodriguez state to give but hold the Lisinopril.
[2023-11-25] MEDS: metoprolol tartrate 25 mg Tablet 12.5 MG PO (10:01)
[2023-11-25] MEDS: amiodarone 200 mg Tablet PO (10:11)
[2023-11-25 11:18] LABS: Glucose Point of Care 329 mg/dL (70-110)
[2023-11-25] MEDS: insulin lispro 100 unit/1 mL SUBCUT ×2 (11:49→17:15)
--- NOTE | 2023-11-25 12:07 | PC.SOCIAL ---
IMM Update pg 2 of IMM updated and reviewed w/ patient. Copy provided and copy dated, initialed and placed in chart.
--- NOTE | 2023-11-25 15:39 | P.PN_ITS ---
Subjective 2 Subjective: Patient was seen this morning, she is sitting up in bed, denies any fevers, no chills, does report shortness of breath but it has improved she tells me, denies any lightheadedness, denies any dizziness, Vitals/I&O/Wt Last Vital Signs Temp 98.4 F 11/25/23 11:43 Pulse 51 L 11/25/23 11:43 Resp 17 11/25/23 11:43 BP 100/58 11/25/23 11:43 Pulse Ox 95 11/25/23 11:43 O2 Del Method Nasal Cannula 11/25/23 04:00 O2 Flow Rate 1 11/25/23 07:31 11/25/23 11/25/23 11/25/23 06:59 14:59 22:59 Intake Total 480 / 480 Output Total 550 / 2400 Balance -550 / -320 480 / 480 Weight last 48 hrs Weight 73.936 kg Weight 74.117 kg Weight 74.072 kg Physical Exam 2 Const: COMMON NORMALS: no acute distress and patient oriented x3 Resp: COMMON NORMALS: normal respiratory effort, No retractions, No use of accessory muscles and clear to auscultation bilaterally AUSCULTATION: clear to auscultation bilaterally Cardio: COMMON NORMALS: regular rate, regular rhythm, S1 normal heart sound present and S2 normal heart sound present RATE: regular rate RHYTHM: r egular rhythm HEART SOUNDS: S1 normal heart sound present and S2 normal heart sound present GI: COMMON NORMALS: Normal to inspection, nondistended, normoactive bowel sounds present and non-tender Extremity: COMMON NORMALS: no pedal edema Neuro: COMMON NORMALS: patient oriented x3 Psych: COMMON NORMALS: mental status grossly normal Urinary Catheter Management: Krause: Cath Placed During This Visit: yes Reason for Continuing Indwelling Catheter: Other Urinary Catheter Date of Insertion: 11/23/23 Data 11/25/23 04:51 11/25/23 04:51 A&P Assessment and plan (1) Congestive heart failure: Acute on chronic diastolic CHF exacerbation Fluid restrictions at 1000 cc continue diuresis with Lasix at 40 mg IV every 12 hours. 1 dose metolazone today No chest pain, EKG without ST-T wave changes acutely. Low concern for ACS. Low probability of PE given that patient is anticoagulated with Eliquis. (2) Pleural effusion: Right-sided pleural effusion. Suspect this to be transudative from CHF. No recent symptoms of pneumonia. Afebrile, hemodynamically stable, no leukocytosis. Monitor off antibiotics. If effusion fails to improve with IV diuresis, may need to consider thoracentesis. Repeat chest x-ray in a.m. a.m. to assess for response to diuresis (3) Anticoagulated: Plan A-fib/A-flutter history: Currently rate controlled, trending towards bradycardia. Continue amiodarone. Continue aspirin 81 mg p.o. daily. Holding Eliquis as noted above. Reduce metoprolol 25 mg p.o. twice daily to 12.5 mg twice daily due to bradycardia in the 50s. Diabetes mellitus: Continue Levemir 10 units every 12 hours, insulin sliding scale ordered. DVT prophylaxis.: Eliquis Plan for today continue Eliquis 5 mg twice daily, will consider thoracocentesis based on clinical progress, Lasix 40 mg IV twice daily, continue aspirin, continue amiodarone, add on 1 dose of metolazone fluid restrictions at 1000 cc Attestations 2 Medical Necessity Statement*: Patient requires hospitalization for fluid overload requiring IV diuresis Diagnoses Congestive heart failure I50.9 Pleural effusion J90 Anticoagulated Z79.01
[2023-11-25 17:00] LABS: Glucose Point of Care > 600 mg/dL (70-110)
[2023-11-25 17:00] LABS: Glucose Point of Care 521 mg/dL (70-110)
[2023-11-25 17:53] LABS: Glucose Point of Care 260 mg/dL (70-110)
--- NOTE | 2023-11-25 18:49 | PC.NURSE ---
Addendum entered by Melyssa Kelley RN 11/28/23 06:34: Dr. Manning was notified not Dr. Rodriguez. Original Note: Notified Dr. Rodriguez of BP 113/57. Hold Metoprolol per Dr. Rodriguez
[2023-11-25] MEDS: trazodone 50 mg Tablet PO (20:05)
[2023-11-25] MEDS: fenofibrate 145 mg Tablet PO (20:05)
[2023-11-25 20:37] LABS: Glucose Point of Care 139 mg/dL (70-110)
[2023-11-26] VITALS (8 sets, daily range): BP systolic 91–138; BP diastolic 41–67; PULSE 48–102; RESP 15–18; TEMP 36.4–36.8; O2SAT 95–97
[2023-11-26] MEDS: FUROsemide 10 mg/mL SDV 4mL 40 MG IVP ×2 (05:00→18:33)
[2023-11-26] MEDS: aspirin 81 mg EC Tablet PO (05:00)
[2023-11-26 06:05] LABS: Basophils % 0.5 %; Eosinophils # 0.2 10^3/uL (0.0-0.8); Eosinophils % 3.6 %; Hematocrit 26.8 % (36-47); Lymphocytes # 1.4 10^3/uL (0.8-4.8); Lymphocytes % 22.5 %; Mean Corpuscular HGB Conc 32.1 g/dL (30-55); Mean Corpuscular Hemoglobin 29.8 pg (27-33); Mean Corpuscular Volume 92.7 fl (85-98); Mean Platelet Volume 10.1 fL (7.4-10.4); Monocytes # 0.7 10^3/uL (0.2-0.9); Monocytes % 10.5 %; Neutrophils # 3.86 10^3/uL (1.8-7.7); Neutrophils % 62.4 %; Nucleated Red Blood Cells % 0 %; Platelet Count 189 10^3/cmm (157-399); Red Blood Count 2.89 10^6/uL (3.85-5.65); Red Cell Distribution Width 14.1 % (12.1-15.1); White Blood Count 6.18 10^3/uL (3.29-11.43)
[2023-11-26] MEDS: insulin glargine 100 units/1 mL 10 UNIT SUBCUT ×2 (06:20→18:20)
[2023-11-26 06:26] LABS: Glucose Point of Care 104 mg/dL (70-110)
[2023-11-26 06:28] LABS: Magnesium 1.6 mg/dL (1.7-2.3)
[2023-11-26 06:34] LABS: Blood Urea Nitrogen 42 mg/dL (8-23); Calcium 8.6 mg/dL (8.5-10.5); Carbon Dioxide 32 mmol/L (22-29); Chloride 93 mmol/L (98-107); Glucose 85 mg/dL (65-115); NT Pro B Type Natriuretic Pept 9604 pg/mL (0-450); Osmolality Calculated 288 mOsm/kg (285-295); Sodium 134 mmol/L (136-145)
--- NOTE | 2023-11-26 07:00 | XRR_ITS ---
PROCEDURE INFORMATION: Exam: XR Chest Exam date and time: 11/26/2023 7:10 AM Age: 73 years old Clinical indication: Shortness of breath; Additional info: SOB TECHNIQUE: Imaging protocol: Radiologic exam of the chest. Views: 1 view. COMPARISON: 1. CR XR chest 1V portable [id number] 11/25/2023 5:34 AM 2. CR (CHEST, ) 11/23/2023 1:02 PM 3. CR (CHEST, ) 07/30/2023 9:03 PM FINDINGS: Lungs: Stable bilateral lower lung opacification. Pulmonary vascular congestion. Pleural spaces: Stable inyik-tiwfcfv-rnrd-left pleural effusions. No pneumothorax. Heart/Mediastinum: Stable cardiomegaly. Prosthetic aortic valve. Vasculature: Aortic arch atherosclerotic calcification. Bones/joints: Degenerative changes along the spine and right shoulder. Prior median sternotomy. Osseous fusion of the left glenohumeral joint with partially visualized screw. XR/XR chest 1V portable [id number] IMPRESSION: Stable findings compatible with CHF.
[2023-11-26] MEDS: potassium chloride ER 20 mEq Tablet 40 MEQ PO (09:42)
[2023-11-26] MEDS: apixaban 5 mg Tablet PO ×2 (09:42→20:53)
[2023-11-26] MEDS: pantoprazole DR 40 mg Tablet PO (09:43)
[2023-11-26] MEDS: magnesium lactate 84 mg Tablet PO ×2 (09:43→18:20)
[2023-11-26] MEDS: atorvastatin 40 mg Tablet 20 MG PO (09:43)
[2023-11-26] MEDS: metOLazone 5 MG Tablet PO (09:47)
[2023-11-26] MEDS: amiodarone 200 mg Tablet PO (10:00)
[2023-11-26 11:23] LABS: Glucose Point of Care 217 mg/dL (70-110)
[2023-11-26] MEDS: insulin lispro 100 unit/1 mL SUBCUT ×3 (13:17→21:48)
--- NOTE | 2023-11-26 16:00 | P.PN_ITS ---
Subjective 2 Subjective: Patient was seen this morning, she continues to have complaints of shortness of breath, no chest pain, no palpitations Vitals/I&O/Wt Last Vital Signs Temp 98.0 F 11/26/23 12:00 Pulse 65 11/26/23 12:00 Resp 16 11/26/23 12:00 BP 138/50 11/26/23 12:00 Pulse Ox 95 11/26/23 12:00 O2 Del Method Nasal Cannula 11/25/23 04:00 O2 Flow Rate 1 11/26/23 08:00 11/26/23 11/26/23 11/26/23 06:59 14:59 22:59 Output Total 850 / 1650 Balance -850 / -930 Weight last 48 hrs Weight 74.559 kg Weight 73.936 kg Physical Exam 2 Const: COMMON NORMALS: no acute distress and patient oriented x3 Resp: COMMON NORMALS: normal respiratory effort, No retractions, No use of accessory muscles and clear to auscultation bilaterally AUSCULTATION: clear to auscultation bilaterally Cardio: COMMON NORMALS: regular rate, regular rhythm, S1 normal heart sound present and S2 normal heart sound present RATE: regular rate RHYTHM: r egular rhythm HEART SOUNDS: S1 normal heart sound present and S2 normal heart sound present GI: COMMON NORMALS: Normal to inspection, nondistended, normoactive bowel sounds present and non-tender Extremity: COMMON NORMALS: no pedal edema Neuro: COMMON NORMALS: patient oriented x3 Psych: COMMON NORMALS: mental status grossly normal Urinary Catheter Management: Krause: Cath Placed During This Visit: yes Reason for Continuing Indwelling Catheter: Acute Urinary Retention or Obstruction Urinary Catheter Date of Insertion: 11/23/23 Data 11/26/23 05:35 11/26/23 05:35 A&P Assessment and plan (1) Congestive heart failure: Acute on chronic diastolic CHF exacerbation Fluid restrictions at 1000 cc continue diuresis with Lasix at 40 mg IV every 12 hours. 1 dose metolazone today No chest pain, EKG without ST-T wave changes acutely. Low concern for ACS. Low probability of PE given that patient is anticoagulated with Eliquis. (2) Pleural effusion: Right-sided pleural effusion. Suspect this to be transudative from CHF. No recent symptoms of pneumonia. Afebrile, hemodynamically stable, no leukocytosis. Monitor off antibiotics. If effusion fails to improve with IV diuresis, may need to consider thoracentesis. Repeat chest x-ray in a.m. a.m. to assess for response to diuresis (3) Anticoagulated: Plan A-fib/A-flutter history: Currently rate controlled, trending towards bradycardia. Continue amiodarone. Continue aspirin 81 mg p.o. daily. Holding Eliquis as noted above. Reduce metoprolol 25 mg p.o. twice daily to 12.5 mg twice daily due to bradycardia in the 50s. Diabetes mellitus: Continue Levemir 10 units every 12 hours, insulin sliding scale ordered. DVT prophylaxis.: Eliquis Plan for today Lasix 40 mg IV twice daily, 1 dose of metolazone Attestations 2 Medical Necessity Statement*: Patient requires hospitalization fluid overload requiring diuresis Diagnoses Congestive heart failure I50.9 Pleural effusion J90 Anticoagulated Z79.01
[2023-11-26 17:03] LABS: Glucose Point of Care 298 mg/dL (70-110)
[2023-11-26] MEDS: trazodone 50 mg Tablet PO (20:53)
[2023-11-26] MEDS: fenofibrate 145 mg Tablet PO (20:53)
[2023-11-26 21:34] LABS: Glucose Point of Care 194 mg/dL (70-110)
[2023-11-27] VITALS (10 sets, daily range): BP systolic 91–142; BP diastolic 50–61; PULSE 49–63; RESP 16–19; TEMP 36.4–36.7; O2SAT 93–97
[2023-11-27] MEDS: insulin glargine 100 units/1 mL 10 UNIT SUBCUT ×2 (05:35→17:15)
[2023-11-27] MEDS: aspirin 81 mg EC Tablet PO (05:35)
[2023-11-27 05:56] LABS: Basophils % 0.6 %; Eosinophils # 0.1 10^3/uL (0.0-0.8); Hematocrit 29.3 % (36-47); Lymphocytes # 0.8 10^3/uL (0.8-4.8); Lymphocytes % 11.4 %; Mean Corpuscular HGB Conc 31.1 g/dL (30-55); Mean Corpuscular Hemoglobin 29.5 pg (27-33); Mean Corpuscular Volume 95.1 fl (85-98); Mean Platelet Volume 9.9 fL (7.4-10.4); Monocytes # 0.6 10^3/uL (0.2-0.9); Monocytes % 8.1 %; Neutrophils # 5.42 10^3/uL (1.8-7.7); Neutrophils % 78.5 %; Nucleated Red Blood Cells % 0 %; Platelet Count 210 10^3/cmm (157-399); Red Blood Count 3.08 10^6/uL (3.85-5.65); White Blood Count 6.91 10^3/uL (3.29-11.43)
[2023-11-27 06:25] LABS: Blood Urea Nitrogen 53 mg/dL (8-23); Carbon Dioxide 32 mmol/L (22-29); Chloride 98 mmol/L (98-107); Glucose 99 mg/dL (65-115); NT Pro B Type Natriuretic Pept 10334 pg/mL (0-450); Osmolality Calculated 304 mOsm/kg (285-295); Sodium 140 mmol/L (136-145)
[2023-11-27 06:26] LABS: Magnesium 1.8 mg/dL (1.7-2.3)
[2023-11-27] MEDS: FUROsemide 10 mg/mL SDV 4mL 40 MG IVP (06:30)
[2023-11-27 06:34] LABS: Glucose Point of Care 113 mg/dL (70-110)
[2023-11-27] MEDS: amiodarone 200 mg Tablet PO (07:55)
[2023-11-27] MEDS: magnesium lactate 84 mg Tablet PO ×2 (07:55→17:13)
[2023-11-27] MEDS: apixaban 5 mg Tablet PO ×2 (07:56→21:33)
[2023-11-27] MEDS: atorvastatin 40 mg Tablet 20 MG PO (07:56)
[2023-11-27] MEDS: pantoprazole DR 40 mg Tablet PO (07:56)
[2023-11-27] MEDS: metOLazone 5 MG Tablet PO (10:34)
[2023-11-27] MEDS: TRAMadol 50 mg Tablet PO ×2 (10:37→18:57)
[2023-11-27] MEDS: insulin lispro 100 unit/1 mL SUBCUT ×3 (11:38→21:33)
[2023-11-27 12:04] LABS: Glucose Point of Care 310 mg/dL (70-110)
--- NOTE | 2023-11-27 13:20 | P.PN_ITS ---
Subjective 2 Subjective: Patient was seen this morning, she continues to have episodes of shortness of breath but does feel that she is doing better, Vitals/I&O/Wt Last Vital Signs Temp 97.5 F L 11/27/23 12:00 Pulse 57 L 11/27/23 12:00 Resp 16 11/27/23 12:00 BP 109/54 11/27/23 12:00 Pulse Ox 95 11/27/23 12:00 O2 Del Method Nasal Cannula 11/27/23 12:00 O2 Flow Rate 1 11/26/23 20:00 11/26/23 11/27/23 11/27/23 22:59 06:59 14:59 Intake Total 360 / 840 720 / 720 Output Total 300 / 300 Balance 360 / 840 420 / 420 Weight last 48 hrs Weight 70.307 kg Weight 74.559 kg Physical Exam 2 Const: COMMON NORMALS: no acute distress and patient oriented x3 Resp: COMMON NORMALS: normal respiratory effort, No retractions, No use of accessory muscles and clear to auscultation bilaterally AUSCULTATION: clear to auscultation bilaterally Cardio: COMMON NORMALS: regular rate, regular rhythm, S1 normal heart sound present and S2 normal heart sound present RATE: regular rate RHYTHM: r egular rhythm HEART SOUNDS: S1 normal heart sound present and S2 normal heart sound present GI: COMMON NORMALS: Normal to inspection, nondistended, normoactive bowel sounds present and non-tender Extremity: COMMON NORMALS: no pedal edema Neuro: COMMON NORMALS: patient oriented x3 Psych: COMMON NORMALS: mental status grossly normal Urinary Catheter Management: Krause: Cath Placed During This Visit: yes Reason for Continuing Indwelling Catheter: Acute Urinary Retention or Obstruction Urinary Catheter Date of Insertion: 11/23/23 Data 11/27/23 05:33 11/27/23 05:33 A&P Assessment and plan (1) Congestive heart failure: Acute on chronic diastolic CHF exacerbation Fluid restrictions at 1000 cc continue diuresis with Lasix at 40 mg IV every 12 hours. 1 dose metolazone today No chest pain, EKG without ST-T wave changes acutely. Low concern for ACS. Low probability of PE given that patient is anticoagulated with Eliquis. (2) Pleural effusion: Right-sided pleural effusion. Suspect this to be transudative from CHF. No recent symptoms of pneumonia. Afebrile, hemodynamically stable, no leukocytosis. Monitor off antibiotics. If effusion fails to improve with IV diuresis, may need to consider thoracentesis. Repeat chest x-ray in a.m. a.m. to assess for response to diuresis (3) Anticoagulated: Plan A-fib/A-flutter history: Currently rate controlled, trending towards bradycardia. Continue amiodarone. Continue aspirin 81 mg p.o. daily. Holding Eliquis as noted above. Diabetes mellitus: Continue Levemir 10 units every 12 hours, insulin sliding scale ordered. DVT prophylaxis.: Eliquis Plan for today will continue to diurese with Lasix, 1 dose of metolazone plan to discharge in next 24 hours monitor urine output monitor creatinine for bradycardia metoprolol has been stopped, due to low blood pressures lisinopril has been stopped Attestations 2 Medical Necessity Statement*: Patient requires hospitalization for CHF requiring IV diuresis Diagnoses Congestive heart failure I50.9 Pleural effusion J90 Anticoagulated Z79.01
--- NOTE | 2023-11-27 14:06 | PC.SOCIAL ---
IMM Update pg 2 of IMM updated and reviewed w/ patient. Copy provided and copy dated, initialed and placed in chart.
[2023-11-27 16:57] LABS: Glucose Point of Care 251 mg/dL (70-110)
[2023-11-27 21:07] LABS: Glucose Point of Care 226 mg/dL (70-110)
[2023-11-27] MEDS: trazodone 50 mg Tablet PO (21:33)
[2023-11-27] MEDS: fenofibrate 145 mg Tablet PO (21:33)
[2023-11-28] VITALS (7 sets, daily range): BP systolic 109–120; BP diastolic 51–74; PULSE 56–67; RESP 16–20; TEMP 36.4–36.9; O2SAT 94–98; BMI 31.3
[2023-11-28 05:37] LABS: Basophils % 0.9 %; Eosinophils # 0.2 10^3/uL (0.0-0.8); Eosinophils % 3.5 %; Hematocrit 28.6 % (36-47); Lymphocytes # 1.1 10^3/uL (0.8-4.8); Lymphocytes % 24.3 %; Mean Corpuscular HGB Conc 30.8 g/dL (30-55); Mean Corpuscular Hemoglobin 28.9 pg (27-33); Mean Corpuscular Volume 94.1 fl (85-98); Mean Platelet Volume 9.9 fL (7.4-10.4); Monocytes # 0.6 10^3/uL (0.2-0.9); Monocytes % 12.1 %; Neutrophils # 2.71 10^3/uL (1.8-7.7); Neutrophils % 58.8 %; Nucleated Red Blood Cells % 0 %; Platelet Count 210 10^3/cmm (157-399); Red Blood Count 3.04 10^6/uL (3.85-5.65); Red Cell Distribution Width 14.1 % (12.1-15.1); White Blood Count 4.61 10^3/uL (3.29-11.43)
[2023-11-28] MEDS: insulin glargine 100 units/1 mL 10 UNIT SUBCUT (05:58)
[2023-11-28] MEDS: aspirin 81 mg EC Tablet PO (05:58)
[2023-11-28 05:59] LABS: Magnesium 1.9 mg/dL (1.7-2.3)
[2023-11-28 06:05] LABS: Anion Gap 11.8 (5-19); Blood Urea Nitrogen 48 mg/dL (8-23); Calcium 8.9 mg/dL (8.5-10.5); Carbon Dioxide 33 mmol/L (22-29); Chloride 95 mmol/L (98-107); Glucose 101 mg/dL (65-115); NT Pro B Type Natriuretic Pept 10663 pg/mL (0-450); Osmolality Calculated 295 mOsm/kg (285-295); Potassium 3.8 mmol/L (3.5-5.1); Sodium 136 mmol/L (136-145)
[2023-11-28 06:39] LABS: Glucose Point of Care 126 mg/dL (70-110)
[2023-11-28] MEDS: magnesium lactate 84 mg Tablet PO (08:34)
[2023-11-28] MEDS: apixaban 5 mg Tablet PO (08:34)
[2023-11-28] MEDS: atorvastatin 40 mg Tablet 20 MG PO (08:34)
[2023-11-28] MEDS: amiodarone 200 mg Tablet PO (08:34)
[2023-11-28] MEDS: pantoprazole DR 40 mg Tablet PO (08:35)
[2023-11-28] MEDS: metOLazone 5 MG Tablet PO (08:44)
[2023-11-28] MEDS: potassium chloride ER 20 mEq Tablet PO (08:44)
[2023-11-28] MEDS: FUROsemide 10 mg/mL SDV 4mL 40 MG IVP (08:44)
[2023-11-28 11:09] LABS: Glucose Point of Care 210 mg/dL (70-110)
--- NOTE | 2023-11-28 11:48 | P.DS_ITS ---
Discharge Providers Date of Admission: 11/23/23 15:55 Date of Discharge: November 28, 2023 Attending Provider at Admission: Renea Canales MD Attending Provider at Discharge: Mickey Manning MD Primary Care Provider: Lillian Locke Diagnoses at Discharge Discharge Diagnosis (1) Congestive heart failure: Status: Acute (2) Pleural effusion: Status: Acute (3) Anticoagulated: Status: Chronic Permanent problem details: Eliquis for atrial flutter Reason for Visit Reason for Visit: SOB Hospital Course Hospital Course marc Padilla is a 73 year old female with history of poliomyelitis, bedbound, congestive heart failure, essential hypertension, atrial fibrillation on Eliquis, diabetes, H/O aortic valve replacement, was brought in by EMS today due to complaints of shortness of breath. Patient stated that she has been feeling short of breath for the last 10 days or so however today she was unable to catch her breath which prompted the emergency room visit. Patient carries a history of CHF and takes Lasix 40 mg daily.. She she denies missing any doses recently or any joint change in the dose of her medications. She denies any chest pain dyspnea palpitations. She has a chronic cough and rhinorrhea which is unchanged over her baseline. Upon EMS arrival she was initially reported to be needing about 10 L/min supplemental O2 via nonrebreather while her baseline is 2 L/min at home. She received 80 mg of IV Lasix in the emergency room and is currently been placed on 3 L/min supplemental O2 and saturating 96% at the time of this assessment. She denies any chest pain dyspnea palpitations or syncope. Denies any fever or chills. Denies any abdominal pain nausea vomiting or diarrhea. This is a 73-year-old female who presents to [facility] for CHF exacerbation, acute on chronic diastolic CHF exacerbation, with right pleural effusion, was treated A-fib patient was diuresed during hospitalization, diuresed over 6 L, will be discharged on Lasix 40 mg twice daily with potassium replacement twice daily, fluid restrictions of 2 L, close follow-up with primary care and cardiology as outpatient Physical Exam Const: COMMON NORMALS: no acute distress and patient oriented x3 Resp: COMMON NORMALS: normal respiratory effort, No retractions, No use of accessory muscles and clear to auscultation bilaterally AUSCULTATION: clear to auscultation bilaterally Cardio: COMMON NORMALS: regular rate, regular rhythm, S1 normal heart sound present and S2 normal heart sound present RATE: regular rate RHYTHM: regular rhythm HEART SOUNDS: S1 normal heart sound present and S2 normal heart sound present GI: COMMON NORMALS: Normal to inspection, nondistended, normoactive bowel sounds present and non-tender Extremity: COMMON NORMALS: no pedal edema Neuro: COMMON NORMALS: patient oriented x3 Psych: COMMON NORMALS: mental status grossly normal Urinary Catheter Management: Krause: Cath Placed During This Visit: yes, but has since been removed by the nurse Reason for Continuing Indwelling Catheter: Decision to DC Catheter Urinary Catheter Date of Insertion: 11/23/23 Date Urinary Catheter Removed: 11/28/23 Time Urinary Catheter Discontinued: 11:22 Discharge Data Studies Completed and Pending Completed Studies During Hospitalization Category Date Time Status CXRP [XR chest 1V portable [id number]] AM LABS Exams 11/25/23 04:00 Completed XR chest 1V portable [id number] Routine Exams 11/26/23 07:00 Completed XR chest 1V portable [id number] Stat Exams 11/23/23 12:44 Completed Radiology Impressions Chest X-Ray 11/26/23 07:00 IMPRESSION: Stable findings compatible with CHF. Laboratory Results WBC 4.61 10^3/uL (3.29-11.43) 11/28/23 05:12 RBC 3.04 10^6/uL (3.85-5.65) L 11/28/23 05:12 Hgb 8.80 g/dL (11.27-16.99) L 11/28/23 05:12 Hct 28.6 % (36-47) L 11/28/23 05:12 MCV 94.1 fl (85-98) 11/28/23 05:12 MCH 28.9 pg (27-33) 11/28/23 05:12 MCHC 30.8 g/dL (30-55) 11/28/23 05:12 RDW 14.1 % (12.1-15.1) 11/28/23 05:12 Plt Count 210 10^3/cmm (157-399) 11/28/23 05:12 MPV 9.9 fL (7.4-10.4) 11/28/23 05:12 Neut % (Auto) 58.8 % 11/28/23 05:12 Lymph % (Auto) 24.3 % 11/28/23 05:12 [place] % (Auto) 12.1 % 11/28/23 05:12 Eos % (Auto) 3.5 % 11/28/23 05:12 Baso % (Auto) 0.9 % 11/28/23 05:12 Neut # (Auto) 2.71 10^3/uL (1.8-7.7) 11/28/23 05:12 Lymph # (Auto) 1.1 10^3/uL (0.8-4.8) 11/28/23 05:12 [place] # (Auto) 0.6 10^3/uL (0.2-0.9) 11/28/23 05:12 Eos # (Auto) 0.2 10^3/uL (0.0-0.8) 11/28/23 05:12 Baso # (Auto) 0.0 10^3/uL (0.0-0.1) 11/28/23 05:12 Nucleated RBC % (auto) 0 % 11/28/23 05:12 Nucleated RBCs # 0.0 /100WBC 11/28/23 05:12 Specimen Type Arterial 11/23/23 12:55 Sample Site Brachial, right 11/23/23 12:55 ABG pH 7.44 (7.35-7.45) 11/23/23 12:55 ABG pCO2 45.6 mmHg (35-45) H 11/23/23 12:55 ABG pO2 66.8 mmHg (80.0-100.0) L 11/23/23 12:55 ABG PO2/FiO2 Ratio 0 11/23/23 12:55 ABG HCO3 31.3 mmol/L (22-26) H 11/23/23 12:55 ABG Base Excess 6.4 mmol/L (-2.0-2.0) H 11/23/23 12:55 Abdullahi Test N/a 11/23/23 12:55 Hematocrit 28.9 % (37-47) L 11/23/23 12:55 Hgb O2 Saturation 91.2 % (95-100) L 11/23/23 12:55 Carboxyhemoglobin 0.4 %THgb (0.4-20.1) 11/23/23 12:55 Methemoglobin 0.5 % (0.4-1.5) 11/23/23 12:55 Total Hemoglobin 9.4 g/dL (12-16) L 11/23/23 12:55 O2 Delivery Device Nc 11/23/23 12:55 FiO2 28.0 % 11/23/23 12:55 Development Associate ID Amh 11/23/23 12:55 Sodium 136 mmol/L (136-145) 11/28/23 05:12 Potassium 3.8 mmol/L (3.5-5.1) 11/28/23 05:12 Chloride 95 mmol/L (98-107) L 11/28/23 05:12 Carbon Dioxide 33 mmol/L (22-29) H 11/28/23 05:12 Anion Gap 11.8 (5-19) 11/28/23 05:12 BUN 48 mg/dL (8-23) H 11/28/23 05:12 Creatinine 0.6 mg/dL (0.5-0.9) 11/28/23 05:12 GFR Calculation Not Reportable 11/28/23 05:12 Glucose 101 mg/dL (65-115) 11/28/23 05:12 POC Glucose 210 mg/dL (70-110) H 11/28/23 11:03 Calculated Osmolality 295 mOsm/kg (285-295) 11/28/23 05:12 Calcium 8.9 mg/dL (8.5-10.5) 11/28/23 05:12 Magnesium 1.9 mg/dL (1.7-2.3) 11/28/23 05:12 Total Bilirubin 0.4 mg/dL (0.15-1.2) 11/25/23 04:51 AST 17 U/L (0-32) 11/25/23 04:51 ALT 7 U/L (0-33) 11/25/23 04:51 Alkaline Phosphatase 66 U/L (35-105) 11/25/23 04:51 NT-Pro-B Natriuret Pep 66004 pg/mL (0-450) H 11/28/23 05:12 Total Protein 6.1 g/dL (6.6-8.7) L 11/25/23 04:51 Albumin 3.6 g/dL (3.5-5.2) 11/25/23 04:51 Globulin 2.5 g/dL (1.3-4.6) 11/25/23 04:51 Vitals Last Vital Signs Temp 97.8 F 11/28/23 08:00 Pulse 63 11/28/23 08:00 Resp 17 11/28/23 08:00 BP 113/51 11/28/23 08:00 Pulse Ox 98 11/28/23 07:58 O2 Del Method Nasal Cannula 11/28/23 07:58 O2 Flow Rate 0 11/28/23 08:00 Discharge Plan Discharge Patient Disposition: Home Condition: Stable Prescriptions: New magnesium L-lactate [Magtab] 84 mg Tablet Extended Release 84 mg PO DAILY 30 Days Qty: 30 0RF Continued trazodone 50 mg tablet 50 mg PO BEDTIME Qty: 90 3RF Eliquis 5 mg tablet 5 mg PO BID Qty: 30 0RF multivitamin [Multiple Vitamins] Tablet 1 tab PO QAM magnesium oxide 400 mg (241.3 mg magnesium) Tablet 400 mg PO BID omeprazole 20 mg Capsule,Delayed Release(Dr/Ec) 20 mg PO QAM ferrous gluconate 324 mg (38 mg iron) Tablet 324 mg PO QAM aspirin [Adult Aspirin Regimen] 81 mg tablet,delayed release (DR/EC) 81 mg PO QAM ascorbic acid (vitamin C) [Vitamin C] 500 mg Tablet 500 mg PO QAM PreserVision AREDS [id number] Capsule 1 cap PO BID loperamide 2 mg capsule 2 mg PO QID PRN (Reason: Diarrhea) tramadol 50 mg tablet 50 - 100 mg PO Q4H PRN (Reason: Pain) glipizide 5 mg tablet 5 mg PO BID metformin 1,000 mg tablet 1,000 mg PO BID fluticasone propionate 50 mcg/actuation spray,suspension 2 spray INTRANASAL QAM Levemir FlexPen 100 unit/mL (3 mL) insulin pen 10 unit SUBCUT Q12H fenofibrate nanocrystallized 145 mg tablet 145 mg PO BEDTIME cholecalciferol (vitamin D3) [Vitamin D3] 50 mcg (2,000 unit) Tablet 50 mcg PO QAM amiodarone 200 mg tablet 200 mg PO DAILY pravastatin 20 mg tablet 20 mg PO DAILY mupirocin 2 % ointment 1 applic TOPICAL BID Rx Instructions: X 2 WEEKS Changed furosemide 40 mg tablet 40 mg PO BID 30 Days Qty: 90 4RF Klor-Con M20 20 mEq tablet,ER particles/crystals 20 meq PO BID 30 Days Qty: 90 4RF Discontinued metoprolol tartrate 25 mg tablet 25 mg PO BID lisinopril 20 mg tablet 20 mg PO DAILY Discharge Orders: Discharge Order (Routine); Ordered 11/28/23 Ordered By: Mickey Manning Referrals: Blanca Asencio MD [Physician] - 1 week Lillian Locke [Primary Care Provider] - 12/02/23 10:00 am Discharge Diet: Cardiac Discharge Activity: Resume usual activity Patient Instructions: Opioid Safety Activity Restrictions/Additional Instructions: - Please have your primary care provider recheck your kidney function in 1 week, creatinine discharge 0.6 -Please limit fluid intake to 2 L a day -Please take Lasix 40 mg twice daily with potassium replacement 20 meq twice daily -If you have recurrent shortness of breath please go to emergency room Discharge Attestations Time Spent in Discharge Care*: greater than 30 min Quality Metrics Clinical Quality Measures [ No reported AMI, CVA or VTE this stay] Coding Level of Care Code 20276 Total time (in minutes) for Discharge: 45 Diagnoses Congestive heart failure I50.9 Pleural effusion J90 Anticoagulated Z79.01
[2023-11-28] MEDS: insulin lispro 100 unit/1 mL SUBCUT (12:04)
--- NOTE | 2023-11-28 17:27 | PC.NURSE ---
Discussed discharge with patient. New medications, stopped medications and changed. Discussed CHF Stoplight with patient as well as follow up appointments. Patient verbalized understanding.
== END 2023-11-28 16:12 | disposition home or self-care (01) | DRG 291 ==
LOC: ER 15:55 → MEDSURG 16:39
PROVIDERS: Admitting Provider Student in an Organized Health Care Education/Training Program; Emergency Provider Emergency Medicine; PCP Registered Nurse; Visit Provider Family Medicine
DX: I11.0 Hypertensive heart disease with heart failure (principal); I50.33 Acute on chronic diastolic (congestive) heart failure; I48.91 Unspecified atrial fibrillation; E11.9 Type 2 diabetes mellitus without complications; E78.5 Hyperlipidemia, unspecified; R09.02 Hypoxemia; Z86.12 Personal history of poliomyelitis; Z74.01 Bed confinement status; Z79.01 Long term (current) use of anticoagulants; Z79.82 Long term (current) use of aspirin; Z79.84 Long term (current) use of oral hypoglycemic drugs; Z79.4 Long term (current) use of insulin; Z95.3 Presence of xenogenic heart valve
CPT/HCPCS: 36415; 36416; 36600; 51702; 71045; 80048; 80053; 82805; 82962; 83735; 83880; 85025; 93005; 96372; 96374; 99285; J1815; J1940